=== PATIENT | male | born 1965 | race Caucasian/White ===

== ENCOUNTER → 2019-02-10 | Outpatient (CLI) | payer BC ==
[~2019-02-10] MED LIST: SULF-222 PO
--- NOTE | 2019-02-10 12:26 | Diagnostic Imaging Report ---
PROCEDURE: US right lower extremity venous. INDICATION: Right lower extremity swelling. EXAMINATION: Grayscale and color Doppler evaluation of the deep veins of the right lower extremity were performed with waveform analysis. FINDINGS: Continuous venous flow is present. No intraluminal filling defect is identified. There is normal compressibility and response to augmentation. No abnormal perivascular fluid collection is identified. IMPRESSION: No ultrasound evidence of right lower extremity deep venous thrombosis. Dictated by: Dictated on workstation # [id number]
== END ==
LOC: RAD 12:00
PROVIDERS: ATTEND Nurse Practitioner Family
DX: I83.891 Varicose veins of right lower extremity with other complications (principal)

== ENCOUNTER 2019-06-16 11:00 | Outpatient (CLI) | payer BC ==
[~2019-06-16] VITALS: Ht 200.7 cm; Wt 127.0 kg
== END 2019-06-16 13:03 | disposition home or self-care (01) ==
LOC: PREOP 11:00
PROVIDERS: ATTEND Internal Medicine
DX: Z01.818 Encounter for other preprocedural examination (principal)

== ENCOUNTER 2019-06-17 08:04 | Day surgery (SDC) | payer BC ==
--- NOTE | 2019-06-10 19:08 | HISTORY AND PHYSICAL ---
DATE OF SERVICE: COLONOSCOPY HISTORY AND PHYSICAL HISTORY OF PRESENT ILLNESS: The patient is a 54-year-old white male referred by Dr. Sveta Crandall for his first screening colonoscopy. He is deemed to be of slightly higher than average risk because he reports his father had a history of colon polyps. He has not however, aware of any family history for colon cancer. He denies any change in bowel habit. No problems with diarrhea, constipation, bright red blood per rectum, melena or weight change. He did, however, reports the onset of red swollen left second toe that was painful. He has been on cephalexin, but reports no improvement in his symptoms. He has had no night sweats, chills or fever and feels well otherwise. He reports similar problem with acute erythema, swelling and pain earlier this year. He is not sure if it was the same toe or the second toe on his right foot. It did get better after about a week's worth of antibiotic therapy. He again denied any infectious type symptoms at that time. In review of electronic medical record in January, he had right foot swelling that he underwent a venous Doppler evaluation for that was unremarkable. He reports it resolved over a week's period of time and was not associated with trauma that he recalls. PAST MEDICAL HISTORY: Noncontributory per the patient's reports and his electronic medical record. He had had a sleep study done in 2014 that was compatible with severe sleep apnea with an AHI of 39. This was noted after the patient's interview, so I did not know whether he is currently being treated with CPAP. PAST SURGICAL HISTORY: Noncontributory. FAMILY HISTORY: Father has history of colon polyps and is living at the age of 86. Mother at the age of 57 with some form of intra-abdominal malignancy. She was a heavy smoker as well as drinker. SOCIAL HISTORY: He has no past smoking history. He reports over the summer time he does drink more and has been averaging about four beers daily. 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 REVIEW OF SYSTEMS: CONSTITUTION: The patient denies night sweats, chills, fever or change in weight. GASTROINTESTINAL: As noted in the HPI. CARDIOVASCULAR: The patient reports no history of cardiovascular disease. Denies chest pain, palpitations, syncope or presyncope. Denies orthopnea or PND. Has no pedal edema, but does have an inflamed left second toe. PULMONARY: The patient denies any problems with cough, chest congestion, wheezing and asthma. MUSCULOSKELETAL: The patient has not been diagnosed previously with gout. PHYSICAL EXAMINATION: GENERAL: Reveals pleasant overweight white male in no acute distress. VITAL SIGNS: Blood pressure was 156/98. HEENT: Unremarkable. He is a Mallampati class 2 oropharyngeal configuration. NECK: Revealed no JVD, adenopathy or bruits. CHEST: Clear to auscultation. CARDIOVASCULAR: Reveals a regular rate and rhythm without murmur, S3 or S4. EXTREMITIES: Reveal no cyanosis, clubbing or edema, except there is inflammation predominantly around the 2nd DIP joint of the left foot. There is some pain to palpation. There is no evidence for paronychia. No abnormality is noted involving the MTP joint. SKIN: Skin evaluation reveals no evidence for any psoriatic plaques. ASSESSMENT AND PLAN: 1. The patient was set up for screening colonoscopy on 06/17/2019. Prep instructions with the Suprep kit were given and questions were answered. 2. Inflammatory arthritis, recurrent second left DIP joint of the foot. Considering obesity and excessive beer intake without underlying other infectious type symptoms, gout is strongly in the differential. As there has not been any improvement after a week of cephalexin. I did take the liberty of giving him a short course of prednisone 40 mg x3 days, 20 mg x3 days and off. Discussed if he develops infectious symptoms, he needs to return to see Dr. Crandall or go to urgent care if it is over a weekend. Advised that he return to see Dr. Crandall when inflammatory arthritis has resolved for uric acid level testing and strongly advised that he cut down on beer/alcohol consumption as it was also contributing to his obesity and strong risk factor for gout. I thank you for the referral of this pleasant gentleman. Job ID: [id number] DocumentID: [id number] Dictated Date: 06/09/2019 17:14:04 Geospatial Extractor Analysis Date: 06/09/2019 18:05:11 Dictated By: MAGALY WALKER MD MTDDarryl
[2019-06-17] VITALS (13 sets, daily range): BP systolic 146–167; BP diastolic 86–112
[~2019-06-17] VITALS: Ht 200.7 cm; Wt 127.0 kg
[~2019-06-17 08:04] MED LIST changes: +D5 LR IV SOLUTION 1,000 ML IV ONE
[2019-06-17] MEDS ORDERED: D5 LR IV SOLUTION 1,000 ML IV STA (08:12)
[2019-06-17] MEDS ORDERED: LIDOCAINE JELLY 2% 6 ML SYRINGE MM PRN (08:15)
[2019-06-17] MEDS ORDERED: MIDAZOLAM 2 MG/2 ML (VERSED) VIAL IVP ONE (08:15)
[2019-06-17] MEDS ORDERED: fentaNYL INJECTION 100 MCG/2 ML AMP IVP ONE (08:15)
[2019-06-17] MEDS ORDERED: MIDAZOLAM 2 MG/2 ML (VERSED) VIAL ONE ×2 (08:36)
[2019-06-17] MEDS ORDERED: fentaNYL INJECTION 100 MCG/2 ML AMP ONE (08:36)
[2019-06-17] MEDS ORDERED: LIDOCAINE JELLY 2% 6 ML SYRINGE ONE (08:37)
--- NOTE | 2019-06-17 09:00 | Pre-Op Note & Conscious Sedat ---
Pre-Operative Progress Note H&P Reviewed The H&P was reviewed, patient examined and no changes noted. Date H&P Reviewed: Jun 17, 2019 Time H&P Reviewed: 08:30 Conscious Sedation Pre-Proced ASA Score 2 For ASA 3 and 4: Consider anesthesia and medical clearance. Also, for patients with a history of failed moderate sedation consider anesthesia. Airway Lungs Heart ASA score ASA 1: a normal healthy patient ASA 2: a patient with a mild systemic disease (mid diabetes, controlled hypertension, obesity ASA 3: a patient with a severe systemic disease that limits activity (angina, COPD, prior Myocardial infarction) ASA 4: a patient with an incapacitating disease that is a constant threat to life (CHF, renal failure) ASA 5: a moribund patient not expected to survive 24 hrs. (ruptured aneurysm) ASA 6: a declared brain- patient whose organs are being harvested. For emergent operations, add the letter E after the classification Mallampati Classification Grade 2 Sedation Plan Analgesia, Amnesia, Plan communicated to team members, Discussed options with patient/fam, Discussed risks with patient/fam The patient is an appropriate candidate to undergo the planned procedure, sedation, and anesthesia. The patient immediately re-assessed prior to indication. MAGALY WALKER MD Jun 17, 2019 09:00
--- NOTE | 2019-06-17 14:51 | OPERATIVE REPORT ---
DATE OF SERVICE: 06/17/2019 COLONOSCOPY SUMMARY INDICATION FOR THE PROCEDURE: Screening colonoscopy. DESCRIPTION OF THE PROCEDURE: The patient was placed in the left lateral decubitus position. Prior to undergoing colonoscopy, digital rectal evaluation was performed. Anal sphincter tone was normal. Perianal reflex was intact. The prostate is normal in size. There is an area of the mid distal portion of the right prostatic lobe that is a little bit firmer without overt nodularity in comparison to the left side. No other abnormalities were noted on digital inspection of the prostate or distal rectal vault. The colonoscope was then inserted into the rectum and under direct visualization advanced to cecum. The cecum was identified by identification of the ileocecal valve and cecal strap. Photographic documentation was obtained. Careful inspection was made as the colonoscope was withdrawn. The patient tolerated the procedure well. FINDINGS: There was no evidence for internal or external hemorrhoids. Present in the mid rectum was a diminutive 4 mm sessile polyp that was biopsied and ablated and submitted for histopathology. The remainder of the rectum, sigmoid colon, descending colon, splenic flexure and transverse colon were unremarkable. Present in the mid ascending colon was a diminutive sessile polyp measuring about 3 x 5 mm in size. It was photographed and biopsied and ablated with no significant blood loss. The remainder of the ascending colon and cecum were unremarkable. ASSESSMENT: 1. Two diminutive polyps were removed today. As long as there are no surprises on histopathology report, we will advocate consideration for repeat surveillance colonoscopy in 5 years. The patient reports his father had a history of colon polyps, but he is not aware of any family history for colon cancer. 2. The prostate is not enlarged in size, but the mid to distal portion of the right prostatic lobe is firmer than the left without nodularity. I had advised the patient to check to make sure that he has at least had PSA screening in the last year. Considering the size of his prostate, his PSA level should be significantly less than 4 and likely under 2. If this is not the case, would advocate consideration for urologic referral. I thank you for the referral of this pleasant gentleman. Sincerely, Job ID: [id number] DocumentID: [id number] Dictated Date: 06/17/2019 09:43:41 Radio Installer Date: 06/17/2019 14:50:57 Dictated By: MD KAYLAN STEINER
== END 2019-06-17 10:10 | disposition home or self-care (01) ==
LOC: ENDO 08:04
PROVIDERS: ATTEND Internal Medicine
DX: Z12.11 Encounter for screening for malignant neoplasm of colon (principal); D12.2 Benign neoplasm of ascending colon; K62.1 Rectal polyp; F17.210 Nicotine dependence, cigarettes, uncomplicated; M06.4 Inflammatory polyarthropathy; Z79.2 Long term (current) use of antibiotics; Z80.8 Family history of malignant neoplasm of other organs or systems; Z83.71 Family history of colonic polyps
CPT/HCPCS: 88305

== ENCOUNTER 2020-06-05 20:04 | Emergency (ER) | payer BC ==
[~2020-06-05 20:04] MED LIST changes: -D5 LR IV SOLUTION 1,000 ML IV ONE
[2020-06-05 20:15] VITALS: BP 180/111
[2020-06-05] MEDS ORDERED: NS IV 1000 ML 1,000 ML IV SCH (20:30)
[2020-06-05] MEDS ORDERED: ACETAMINOPHEN 325 MG TABLET PO ONE (20:30)
[2020-06-05 21:00] LABS: BASOPHILS % (AUTO) 1 % (0-10); EOSINOPHILS # (AUTO) 0.2 10^3/uL (0.0-0.3); EOSINOPHILS % (AUTO) 5 % (0-10); HEMATOCRIT 43 % (40-54); HEMOGLOBIN 14.6 G/DL (13.3-17.7); LYMPHOCYTES # (AUTO) 0.6 X 10^3 (1.0-4.0); LYMPHOCYTES % (AUTO) 16 % (12-44); MEAN CORPUSCULAR HEMOGLOBIN 32 PG (25-34); MEAN CORPUSCULAR HGB CONC 34 G/DL (32-36); MEAN CORPUSCULAR VOLUME 95 FL (80-99); MEAN PLATELET VOLUME 10.7 FL (7.4-10.4); MONOCYTES # (AUTO) 0.6 X 10^3 (0.0-1.0); MONOCYTES % (AUTO) 14 % (0-12); NEUTROPHILS # (AUTO) 2.6 X 10^3 (1.8-7.8); NEUTROPHILS % (AUTO) 64 % (42-75); PLATELET COUNT 140 10^3/uL (130-400); RED CELL DISTRIBUTION WIDTH 13.2 % (10.0-14.5); WHITE BLOOD COUNT 4.1 10^3/uL (4.3-11.0)
--- NOTE | 2020-06-05 21:17 | Diagnostic Imaging Report ---
INDICATION: Shortness of breath and fever. Frontal chest obtained at 08:54 p.m. There is no prior study for comparison. FINDINGS: The heart and mediastinal silhouette are normal in appearance. The lungs are clear. There is mild hyperinflation compatible with COPD. There is no focal infiltrate. There is no pneumothorax or pleural fluid IMPRESSION: Mild COPD changes with no focal infiltrate or acute process otherwise. Dictated by: Dictated on workstation # [id number]
[2020-06-05 21:20] LABS: FIBRIN DEGRADATION PRODUCTS 0.54 UG/ML (0.00-0.49); INR 0.9 (0.8-1.4); PROTHROMBIN TIME PATIENT 12.5 SEC (12.2-14.7)
[2020-06-05 21:23] LABS: ALANINE AMINOTRANSFERASE 87 U/L (0-55); ALBUMIN 4.1 GM/DL (3.2-4.5); ALKALINE PHOSPHATASE 98 U/L (40-136); BILIRUBIN,TOTAL 0.4 MG/DL (0.1-1.0); BUN/CREATININE RATIO 12; CALCIUM 9.1 MG/DL (8.5-10.1); CARBON DIOXIDE 20 MMOL/L (21-32); CHLORIDE 104 MMOL/L (98-107); CREATININE SERUM 1.04 MG/DL (0.60-1.30); GFR ESTIMATED > 60; GLUCOSE 102 MG/DL (70-105); POTASSIUM 4.4 MMOL/L (3.6-5.0); SODIUM 138 MMOL/L (135-145); TOTAL PROTEIN 7.1 GM/DL (6.4-8.2)
--- NOTE | 2020-06-05 22:03 | ED Cough/URI ---
General Chief Complaint: Fever-Adult/Adol Stated Complaint: COUGH,FEVER,DIZZYNESS,RASH Nursing Triage Note: Pt ambulates to room #10 with c/o fever, chills, cough, SOA, sinus drainage, et rash. Pt reports fever began on 06/04/20. Pt reports fever or 104.1 at 1945 on this day. Pt denies CP or discomfort. Sepsis Screen: Possible Severe Sepsis Risk Source: patient Exam Limitations: no limitations History of Present Illness Date Seen by Provider: Jun 05, 2020 Time Seen by Provider: 20:31 Initial Comments 55-year-old female who presents to the emergency room with complaints of fever, chills, cough, shortness of air, sinus drainage and a rash across to his chest that began yesterday. He reports fevers of 104 this evening and reports taking 800 of ibuprofen. He denies any chest pain. He reports that his shortness of breath is just mild. He reports that he did start going to a gym last week. Other than that he has been social distancing. Associated Symptoms: fever/chills, shortness of breath Allergies and Home Medications Allergies Coded Allergies: No Known Drug Allergies (Unverified , 04/10/15) Home Medications No Active Prescriptions or Reported Meds Patient Home Medication List Home Medication List Reviewed: Yes Review of Systems Review of Systems Constitutional: see HPI, chills, fever, malaise EENTM: see HPI, throat pain Respiratory: see HPI, short of breath All Other Systems Reviewed Negative Unless Noted: Yes Past Zuhetci-Ofzrro-Kayphz Hx Past Med/Social Hx: Reviewed Nursing Past Med/Soc Hx Patient Social History Recent Foreign Travel: No Contact w/Someone Who Travel: No Recent Infectious Disease Expo: No Recent Hopitalizations: No Immunizations Up To Date Tetanus Booster (TDap): Unknown Seasonal Allergies Seasonal Allergies: No Past Medical History Surgeries: Yes (birthmark removed) Respiratory: No Currently Using CPAP: No Currently Using BIPAP: No Cardiac: No Neurological: No Reproductive Disorders: No Sexually Transmitted Disease: No Genitourinary: No Gastrointestinal: No Musculoskeletal: No (possible gout) Endocrine: No HEENT: No Loss of Vision: Denies Hearing Impairment: Denies Cancer: No Psychosocial: No Integumentary: No Blood Disorders: No Family Medical History Reviewed Nursing Family Hx Physical Exam Vital Signs - First Documented 06/05/20 20:15 Temp 38.1 Pulse 110 Resp 22 B/P (MAP) 180/111 (134) Pulse Ox 96 O2 Delivery Room Air Capillary Refill : Less Than 3 Seconds Height: 6'7.00" Weight: 280lbs. 0.0oz. 127.417625eu; 31.5 BMI Method:Stated General Appearance: WD/WN, no apparent distress HEENT: PERRL/EOMI, normal ENT inspection, TMs normal, pharynx normal Respiratory: chest non-tender, lungs clear, normal breath sounds, no respiratory distress, no accessory muscle use, respiratory distress Cardiovascular: normal peripheral pulses, regular rate, rhythm, no edema, no gallop, no JVD, no murmur Gastrointestinal: normal bowel sounds, non tender, soft, no organomegaly, no pulsatile mass Skin: normal color, warm/dry, rash (rash on the right chest wall, raised, cat thema) Focused Exam Lactate Level 06/05/20 20:25: Lactic Acid Level 1.72 Lactic Acid Level Laboratory Tests Test 06/05/20 20:25 Lactic Acid Level 1.72 MMOL/L (0.50-2.00) Progress/Results/Core Measures Suspected Sepsis Recent Fever Within 48 Hours: Yes Infection Criteria Present: Suspected New Infection New/Unexplained Altered Menta: No Sepsis Screen: Possible Severe Sepsis Risk SIRS Temperature: Pulse: 110 Respiratory Rate: 22 Laboratory Tests 06/05/20 20:25: White Blood Count 4.1L Blood Pressure 180 /111 Mean: 134 06/05/20 20:25: Lactic Acid Level 1.72 Laboratory Tests 06/05/20 20:25: Creatinine 1.04, INR Comment 0.9, Platelet Count 140, Total Bilirubin 0.4 Results/Orders Lab Results Laboratory Tests Test 06/05/20 20:00 06/05/20 20:25 06/05/20 22:02 Range/Units Coronavirus (COVID-19)(PCR) NOT DETECTED Not Detecte White Blood Count 4.1 L 4.3-11.0 10^3/uL Red Blood Count 4.53 4.35-5.85 10^6/uL Hemoglobin 14.6 13.3-17.7 G/DL Hematocrit 43 40-54 % Mean Corpuscular Volume 95 80-99 FL Mean Corpuscular Hemoglobin 32 25-34 PG Mean Corpuscular Hemoglobin Concent 34 32-36 G/DL Red Cell Distribution Width 13.2 10.0-14.5 % Platelet Count 140 130-400 10^3/uL Mean Platelet Volume 10.7 H 7.4-10.4 FL Neutrophils (%) (Auto) 64 42-75 % Lymphocytes (%) (Auto) 16 12-44 % Monocytes (%) (Auto) 14 H 0-12 % Eosinophils (%) (Auto) 5 0-10 % Basophils (%) (Auto) 1 0-10 % Neutrophils # (Auto) 2.6 1.8-7.8 X 10^3 Lymphocytes # (Auto) 0.6 L 1.0-4.0 X 10^3 Monocytes # (Auto) 0.6 0.0-1.0 X 10^3 Eosinophils # (Auto) 0.2 0.0-0.3 10^3/uL Basophils # (Auto) 0.0 0.0-0.1 10^3/uL Prothrombin Time 12.5 12.2-14.7 SEC INR Comment 0.9 0.8-1.4 Activated Partial Thromboplast Time 24 24-35 SEC Fibrinogen 506 H 221-496 MG/DL D-Dimer 0.54 H 0.00-0.49 UG/ML Sodium Level 138 135-145 MMOL/L Potassium Level 4.4 3.6-5.0 MMOL/L Chloride Level 104 98-107 MMOL/L Carbon Dioxide Level 20 L 21-32 MMOL/L Anion Gap 14 5-14 MMOL/L Blood Urea Nitrogen 12 7-18 MG/DL Creatinine 1.04 0.60-1.30 MG/DL Estimat Glomerular Filtration Rate > 60 BUN/Creatinine Ratio 12 Glucose Level 102 70-105 MG/DL Lactic Acid Level 1.72 0.50-2.00 MMOL/L Calcium Level 9.1 8.5-10.1 MG/DL Corrected Calcium 9.0 8.5-10.1 MG/DL Ferritin 567.4 H 32.0-356.0 ng/mL Total Bilirubin 0.4 0.1-1.0 MG/DL Aspartate Amino Transf (AST/SGOT) 42 H 5-34 U/L Alanine Aminotransferase (ALT/SGPT) 87 H 0-55 U/L Alkaline Phosphatase 98 40-136 U/L Lactate Dehydrogenase 289 H 125-220 U/L Troponin I < 0.028 <0.028 NG/ML C-Reactive Protein High Sensitivity 2.36 H 0.00-0.50 MG/DL Total Protein 7.1 6.4-8.2 GM/DL Albumin 4.1 3.2-4.5 GM/DL Group A Streptococcus Screen NEGATIVE NEGATIVE Micro Results Microbiology 06/05/20 Throat Culture - Final, Complete No Beta Strep isolated 06/05/20 Blood Culture - Preliminary, Resulted No growth 06/05/20 Blood Culture - Preliminary, Resulted No growth My Orders Orders - LILO LE Vital Signs: Every 4 Hours (Or (06/05/20 20:29) Monitor-Rhythm Ecg Trace Only (06/05/20 20:29) Cbc With Automated Diff (06/05/20:) Comprehensive Metabolic Panel (06/05/20 20:) Ferritin (06/05/20 20:29) LDH (06/05/20 20:29) Hs C Reactive Protein (06/05/20 20:29) Troponin I (06/05/20 20:29) Lactic Acid Analyzer (06/05/20 20:29) Protime With Inr (06/05/20 20:29) Partial Thromboplastin Time (06/05/20 20:29) Fibrin Degradation Products (06/05/20 20:29) Fibrinogen (06/05/20 20:) Ekg Tracing (06/05/20 20:29) Chest 1 View, Ap/Pa Only (06/05/20 20:29) Acetaminophen Tablet/Caplet (Tylenol T (06/05/20 20:30) Ns Iv 1000 Ml (Sodium Chloride 0.9%) (06/05/20 20:30) Blood Culture (06/05/20 20:29) Rapid Strep A Screen (06/05/20 21:10) Ct Angio Chest W (06/05/20 21:30) Coronavirus Sars-Cov-2 So 2018 (06/05/20 20:00) Medications Given in ED Vital Signs/I&O 06/05/20 06/05/20 20:15 20:36 Temp 38.1 38.1 Pulse 110 Resp 22 B/P (MAP) 180/111 (134) Pulse Ox 96 O2 Delivery Room Air Capillary Refill : Less Than 3 Seconds Blood Pressure Mean: 134 Progress Note : Time: 23:44 Progress Note I have seen and evaluated the patient. I have informed him of his laboratory and imaging studies. With symptoms, recent gym activity, and presentation I believe that he is high risk for covid being positive. I did discuss the findings on his ct and high concern for malignancies and stressed the importance of close follow up. He agrees with plan of care, plans for discharge, return precautions were given. Departure Impression Primary Impression: Viral respiratory illness Additional Impressions: SARS-associated coronavirus exposure Liver lesion Disposition: HOME, SELF-CARE Condition: Stable/Unchanged Departure-Patient Inst. Decision time for Depature: 23:44 Referrals: FABBY CRANDALL MD (PCP/Family) Primary Care Physician Patient Instructions: Coronavirus Disease 2019 (COVID-19) Overview, VIRAL RESP ILLNESS-ADULT Add. Discharge Instructions: Use the inhaler as needed. Tylenol for fever and body aches. Isolate until you have your COVID results. I recommend taking 81 mg of aspirin daily until you get your COVID results back. Follow-up with your primary care after isolation. Your CT results did show liver lesions that need to be followed up and discussed this with Dr. Crandall. Return back to the emergency room for worsening symptoms, shortness of breath, or any other concerns as needed. All discharge instructions reviewed with patient and/or family. Voiced understanding. Scripts No Active Prescriptions or Reported Meds Copy Copies To 1: FABBY CRANDALL MD, TRAVIS Jun 05, 2020 22:03
[2020-06-05] MEDS ORDERED: NS 100 ML (IVPB) BAG IV ONE (22:30)
[2020-06-05] MEDS ORDERED: HOLD METFORMIN - RECEIVED CONTRAST 20 ML VIAL IV SCH (22:30)
[2020-06-05] MEDS ORDERED: IOHEXOL 350 MG/ML 100 ML (OMNIPAQUE 350) VIAL IV ONE (22:30)
--- NOTE | 2020-06-05 23:10 | NUR ---
IV to L hand pulled out while in radiology. Provider notified.
--- NOTE | 2020-06-06 06:38 | Diagnostic Imaging Report ---
PROCEDURE: CT angiography of the chest with contrast. TECHNIQUE: Multiple contiguous axial images were obtained through the chest after uneventful bolus administration of intravenous contrast. 3D reconstructed CTA MIP acquisitions were also performed. Auto Exposure Controls were utilized during the CT exam to meet ALARA standards for radiation dose reduction. INDICATION: Shortness of breath. Sinus drainage. Febrile. Lungs are well-aerated. Mild increased interstitial markings are noted bilaterally. No consolidated infiltrates or masses demonstrated in the lungs. No pleural effusions or pericardial effusions. Aorta appears normal. Pulmonary arteries show no filling defects to indicate pulmonary emboli. No mediastinal or hilar adenopathy of pathologic size. There is noted hepatomegaly with a very mottled appearing infiltrated liver likely representing metastatic lesion. No blastic or lytic bony changes. IMPRESSION: 1. No evidence of pulmonary emboli. 2. Mild prominence interstitial markings of the lungs which may be chronic or acute. 3. Abnormal liver which is enlarged with multiple lesions scattered throughout most likely representing metastatic disease. Further workup indicated. These findings are concordant with the preliminary report. Dictated by: Dictated on workstation # [id number]
== END 2020-06-06 01:38 | disposition home or self-care (01) ==
LOC: EDUNIT# 20:04 → ER 20:05
DX: J98.8 Other specified respiratory disorders (principal); K76.9 Liver disease, unspecified; Z20.828 Contact with and (suspected) exposure to other viral communicable diseases
CPT/HCPCS: 71045; 71275; 80053; 82728; 83605; 83615; 84484; 85025; 85379; 85384; 85610; 85730; 86141; 87040; 87430; 93005; 93041; 99284; U0002; 36415; 87635; 96360

== ENCOUNTER → 2020-06-08 | Outpatient (CLI) | payer BC ==
[2020-06-08] VITALS (15 sets, daily range): BP systolic 110–143; BP diastolic 82–108
[~2020-06-08] VITALS: Ht 77 cm; Wt 124.7 kg
[~2020-06-08] MED LIST changes: +ALLO100T; +DOXY100T2; +ESCI10TA55; +HYDR-700; +HYDROcodone/APAP 5 MG/325 MG (LORTAB) TAB PO PRN; +LIDOCAINE 1% INJ 20 ML 20 ML VIAL INJ ONE; +LIDOCAINE 1% INJ 20 ML 20 ML VIAL ONE; +MIDAZOLAM 2 MG/2 ML (VERSED) VIAL IVP ONE; +MIDAZOLAM 2 MG/2 ML (VERSED) VIAL ONE; +NS IV 1000 ML 1,000 ML IV STA; +NS IV 1000 ML 1,000 ML ONE; +PRD20T PO; +fentaNYL INJECTION 100 MCG/2 ML AMP IVP ONE; +fentaNYL INJECTION 100 MCG/2 ML AMP ONE
[2020-06-08 08:33] LABS: BASOPHILS % (AUTO) 0 % (0-10); EOSINOPHILS # (AUTO) 0.3 10^3/uL (0.0-0.3); EOSINOPHILS % (AUTO) 5 % (0-10); HEMATOCRIT 45 % (40-54); HEMOGLOBIN 15.4 G/DL (13.3-17.7); LYMPHOCYTES # (AUTO) 0.7 X 10^3 (1.0-4.0); LYMPHOCYTES % (AUTO) 13 % (12-44); MEAN CORPUSCULAR HEMOGLOBIN 32 PG (25-34); MEAN CORPUSCULAR HGB CONC 34 G/DL (32-36); MEAN CORPUSCULAR VOLUME 96 FL (80-99); MEAN PLATELET VOLUME 10.8 FL (7.4-10.4); MONOCYTES # (AUTO) 0.5 X 10^3 (0.0-1.0); MONOCYTES % (AUTO) 9 % (0-12); NEUTROPHILS % (AUTO) 73 % (42-75); PLATELET COUNT 135 10^3/uL (130-400); RED CELL DISTRIBUTION WIDTH 13.9 % (10.0-14.5); WHITE BLOOD COUNT 5.5 10^3/uL (4.3-11.0)
[2020-06-08 08:53] LABS: PROTHROMBIN TIME PATIENT 13.6 SEC (12.2-14.7)
[2020-06-08 09:18] LABS: BAND NEUTROPHILS 12 %; BASOPHILS % (MANUAL) 1 %; EOSINOPHILS % (MANUAL) 3 %; LYMPHOCYTES % (MANUAL) 13 %; MONOCYTES % (MANUAL) 8 %; NEUTROPHILS % (MANUAL) 63 %; RBC MORPH NORMAL
--- NOTE | 2020-06-08 09:55 | NUR ---
patient to recovery area. alert and oriented x2. patient states no pain at this time. dressing dry and intact. patient resting with eyes closed. will continue to monitor.
--- NOTE | 2020-06-08 10:36 | Pre-Op Note & Conscious Sedat ---
Pre-Operative Progress Note H&P Reviewed The H&P was reviewed, patient examined and no changes noted. Date H&P Reviewed: Jun 08, 2020 Time H&P Reviewed: 08:00 Pre-Op Diagnosis: Liver mass Conscious Sedation Pre-Proced Time 08:00 ASA Score 2 For ASA 3 and 4: Consider anesthesia and medical clearance. Also, for patients with a history of failed moderate sedation consider anesthesia. Airway Lungs Heart ASA score ASA 1: a normal healthy patient ASA 2: a patient with a mild systemic disease (mid diabetes, controlled hypertension, obesity ASA 3: a patient with a severe systemic disease that limits activity (angina, COPD, prior Myocardial infarction) ASA 4: a patient with an incapacitating disease that is a constant threat to life (CHF, renal failure) ASA 5: a moribund patient not expected to survive 24 hrs. (ruptured aneurysm) ASA 6: a declared brain- patient whose organs are being harvested. For emergent operations, add the letter E after the classification Mallampati Classification Grade 2 Sedation Plan Analgesia, Amnesia, Plan communicated to team members, Discussed options with patient/fam, Discussed risks with patient/fam The patient is an appropriate candidate to undergo the planned procedure, sedation, and anesthesia. The patient immediately re-assessed prior to indication. AVINASH LOPEZ MD Jun 08, 2020 10:36
--- NOTE | 2020-06-08 11:01 | Diagnostic Imaging Report ---
INDICATION: Liver masses. PROCEDURE: CT-guided liver biopsy TECHNIQUE: All CT scans use one or more of the following dose optimizing techniques: automated exposure control, MA and/or KvP adjustment based on patient size and exam type or iterative reconstruction. DESCRIPTION OF PROCEDURE: The patient was brought to the CT suite and placed on table in the supine position. Axial imaging through the abdomen was performed to evaluate appropriate entry site. The procedure was performed utilizing conscious sedation with radiology nursing and constant patient monitoring. The patient was administered a total of 2 mg of Versed intravenously and 100 mcg of fentanyl intravenously. Total procedure time was 10 minutes. Right abdomen was prepped and draped in the usual sterile fashion. A small amount of 1% lidocaine was utilized for local anesthesia. An 18-gauge coaxial Temno biopsy needle was advanced into the right lobe of the liver. The tip was placed within low-density lesion in the inferior right lobe. A total of 4 core biopsies were obtained. A blood patch was injected during needle removal. Hemostasis was obtained using manual compression. The patient tolerated the procedure well and left the department in stable condition. IMPRESSION: Successful CT-guided liver biopsy utilizing, conscious sedation. Pathology results are currently pending. Dictated by: Dictated on workstation # [id number]
== END ==
LOC: SDC 08:14
PROVIDERS: ATTEND Family Medicine
DX: K75.89 Other specified inflammatory liver diseases (principal); K75.81 Nonalcoholic steatohepatitis (NASH); F41.9 Anxiety disorder, unspecified; D72.1 Eosinophilia; Z79.899 Other long term (current) drug therapy
CPT/HCPCS: 36415; 77012; 85007; 85027; 85610; 85730; 99156

== ENCOUNTER 2020-06-10 16:10 | Emergency (ER) | payer BC ==
[~2020-06-10] VITALS: Ht 199 cm; Wt 125.0 kg
[~2020-06-10 16:10] MED LIST changes: -ALLO100T; -DOXY100T2; -ESCI10TA55; -HYDR-700; -HYDROcodone/APAP 5 MG/325 MG (LORTAB) TAB PO PRN; -LIDOCAINE 1% INJ 20 ML 20 ML VIAL INJ ONE; -LIDOCAINE 1% INJ 20 ML 20 ML VIAL ONE; -MIDAZOLAM 2 MG/2 ML (VERSED) VIAL IVP ONE; -MIDAZOLAM 2 MG/2 ML (VERSED) VIAL ONE; -NS IV 1000 ML 1,000 ML IV STA; -NS IV 1000 ML 1,000 ML ONE; -PRD20T PO; -fentaNYL INJECTION 100 MCG/2 ML AMP IVP ONE; -fentaNYL INJECTION 100 MCG/2 ML AMP ONE
--- OUTSIDE RECORDS SUMMARY | 2020-06-10 16:18 | XMS REPORT | CCD ---
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 Name Role Phone PP Unavailable CCM Unavailable Summary Purpose Interface Exchange Insurance Providers Payer name Policy type / Coverage type Covered green party ID Effective Begin Date Effective End Date Blue Cross Blue Shield [facility] Donovan e Cross/Blue Shield [id number] Unknown Unk nown Family history Father Diagnosis Age At Onset Hypertension Unknown Mother Diagnosis Age At Onset alcohol dependence Unknown Skin cancer Unknown Cancer Unknown Depression Unknown Social History Social History Element Codes Description Effective Dates Marital status Unknown M daniela Coello 05/03/2018 Number of children Unknown 2 05/11/[address]: [id number] Never smoker 05/11/2015 Alcohol history Unknown occasionally drinks alcohol 05/11/2015 Allergies, Adverse Reactions, Alerts Substance Reaction Codes Entered Date Inactivated Date Status * NO KNOWN DRUG SANTANA RGIES Unknown 08/29/2015 No Inactive Date Active Past Medical History Illness Codes Condition Status Onset Date Resolved Date Cellulitis of left toe ICD-9: 681.10 ICD-10: L03.032 Active 06/03/2019 Unknown Pain in left toe(s) ICD- 9: 729.5 ICD-10: M79.675 Active 06/15/2019 Unknown Acute recurrent maxi llary sinusitis ICD-9: 461.0 ICD-10: J01.01 Active 12/29/2018 Unknown Generalized anxiety disorder ICD-9: 300.00 ICD-10: F41.1 Active 05/10/2015 Unknown Cough ICD-9: 786.2 ICD-10: R05 Active 11/28/2016 Unknown Effusion, right foot ICD-9: 719.07 ICD-10: M25.474 Active 02/10/2019 Unknown Other allergic rhinitis ICD-9: 477.8 ICD-10: J30.89 Active 01/12/2019 Unknown Phlebitis and thromb ophlebitis of superficial vessels of right lower extremity ICD-9: 451.0 ICD-10: I80.01 Active 02/10/2019 Unknown Acute bronchitis due to other specified organisms ICD-9: 466.0 ICD-10: J20.8 Active 11/17/2016 Unknown Acute laryngopharyng itis ICD-9: 465.0 ICD-10: J06.0 Active 11/17/2016 Unknown Encounter for genera l adult medical examination without abnormal findings ICD-9: V70.0 ICD-10: Z00.00 Active 05/03/2018 Unknown Adjustment insomnia ICD- 9: 307.41 ICD-10: F51.02 Active 03/26/2017 Unknown Cellulitis of left toe ICD-9: 681.11 ICD-10: L03.032 Active 03/26/2017 Unknown Dermatitis, unspecified ICD-9: 692.9 ICD-10: L30.9 Active 03/26/2017 Unknown Anxiety ICD-9: 300.00 Active 05/10/2015 Unknow n Well adult exam ICD-9: V70.0 Active 05/10/2015 Unknown Problems Condition Codes Effectiv e Dates Condition Status Cellulitis of left toe ICD-9: 681.10 ICD-10: L03.032 06/03/2019 Active Pain in left toe(s) ICD- 9: 729.5 ICD-10: M79.675 06/15/2019 Active Acute recurrent maxi llary sinusitis ICD-9: 461.0 ICD-10: J01.01 12/29/2018 Active Generalized anxiety disorder ICD-9: 300.00 ICD-10: F41.1 05/10/2015 Active Cough ICD-9: 786.2 ICD-10: R05 11/28/2016 Active Effusion, right foot ICD-9: 719.07 ICD-10: M25.474 02/10/2019 Active Other allergic rhinitis ICD-9: 477.8 ICD-10: J30.89 01/12/2019 Active Phlebitis and thromb ophlebitis of superficial vessels of right lower extremity ICD-9: 451.0 ICD-10: I80.01 02/10/2019 Active Acute bronchitis due to other specified organisms ICD-9: 466.0 ICD-10: J20.8 11/17/2016 Active Acute laryngopharyng itis ICD-9: 465.0 ICD-10: J06.0 11/17/2016 Active Encounter for genera l adult medical examination without abnormal findings ICD-9: V70.0 ICD-10: Z00.00 05/03/2018 Active Adjustment insomnia ICD- 9: 307.41 ICD-10: F51.02 03/26/2017 Active Cellulitis of left toe ICD-9: 681.11 ICD-10: L03.032 03/26/2017 Active Dermatitis, unspecified ICD-9: 692.9 ICD-10: L30.9 03/26/2017 Active Anxiety ICD-9: 300.00 05/10/2015 Active Well adult exam ICD-9: V70.0 05/10/2015 Active Medications Medication Codes Instruc tions Start Date Stop Date Sta tus Fill Instructions allopurinol 100 mg t ablet RxNorm: 323088 1 Tablet(s) PO daily 06/17/2019 10/14/2019 Active allopurinol 100 mg t ablet RxNorm: 839623 1 Tablet(s) PO daily 06/17/2019 06/16/2019 Inactive doxycycline hyclate 100 mg capsule RxNorm: 3710866 1 Capsule(s) PO BID 06/15/2019 06/24/2019 Ac tive Keflex 500 mg capsule RxNorm: 518342 1 Capsule(s) PO TID 06/03/2019 06/09/2019 Inactive Lexapro 10 mg tablet RxNorm: 488328 1 Tablet(s) PO QHS 03/22/2019 03/15/2020 Active Keflex 500 mg capsule RxNorm: 481685 1 Capsule(s) PO TID 02/10/2019 02/19/2019 Inactive Kenalog 40 mg/mL luis pension for injection RxNorm: 6233437 Milliliter(s) Inj 01/12/2019 01/12/2019 In active Levaquin 500 mg tablet RxNorm: 223323 1 Tablet(s) PO daily 01/12/2019 01/18/2019 Inactive prednisone 10 mg tablet RxNorm: 842877 Tablet(s) PO 01/12/2019 03/21/2019 Inactive 60mg x 2 days, then 50mg x 2 days, then 40mg x 2 days, then 30mg x 2 days, then 20mg x 2 days, then 10mg x 2 days, then 5mg every other day x 2 doses. Singulair 10 mg tablet RxNorm: 588296 1 Tablet(s) PO QHS 01/12/2019 02/10/2019 Inactive ceftriaxone 500 mg s olution for injection RxNorm: 2018278 Inj 01/12/2019 01/12/2019 Inactive Sonia-D 12 Hour 60 mg-120 mg tablet,extended release RxNorm: 307115 1 Tablet(s) PO daily 12/29/2018 01/27/2019 Inactive Lexapro 10 mg tablet RxNorm: 710392 1.5 Tablet(s) PO QHS 12/29/2018 03/21/2019 Inactive Bactrim DS 800 mg-16 0 mg tablet RxNorm: 704559 1 Tablet(s) PO BID 12/29/2018 01/07/2019 Inactive Symbicort 160 mcg-4. 5 mcg/actuation HFA aerosol inhaler RxNorm: 6945982 2 Puff(s) INH BID 12/28/2018 No Stop Date Active Xanax 0.25 mg tablet RxNorm: 820462 1 Tablet(s) PO TID as needed anxiety 11/25/2018 01/23/2019 In active Lexapro 10 mg tablet RxNorm: 714924 1.5 Tablet(s) PO QHS 11/23/2018 12/28/2018 Inactive propranolol 40 mg ta blet RxNorm: 274324 Tablet(s) TAKE 1 TABL ET BY MOUTH PRIOR TO EVENT NEEDED 09/20/2018 12/08/2018 Inactive Lexapro 10 mg tablet RxNorm: 048958 1 Tablet(s) PO QHS 08/30/2018 11/22/2018 Inactive Lexapro 10 mg tablet RxNorm: 958569 1 Tablet(s) PO QHS 05/03/2018 08/29/2018 Inactive cyclobenzaprine 5 mg tablet RxNorm: 641246 1 Tablet(s) PO TID as needed 01/05/2018 01/09/2018 In active cyclobenzaprine 5 mg tablet RxNorm: 624691 1 Tablet(s) PO TID as needed 01/05/2018 01/04/2018 In active propranolol 40 mg ta blet RxNorm: 733106 TAKE 1 TABLET BY MOUT H PRIOR TO EVENT NEEDED 07/24/2017 10/11/2017 Inactive Generic For:INDERAL 40 MG TABLET 2016 9:51:34 AM Prozac 10 mg capsule RxNorm: 327289 1 Capsule(s) PO daily may increase after a few weeks if needed 04/09/2017 04/08/2017 Inactive Pt to call if he wants dose increased Prozac 10 mg capsule RxNorm: 368315 1 Capsule(s) PO daily may increase after a few weeks if needed 04/09/2017 05/02/2018 Inactive Pt to call if he wants dose increased Ambien 10 mg tablet RxNorm: 485407 1 Tablet(s) PO HS PRN 03/26/2017 05/02/2018 Inactive betamethasone johnny te 0.1 % topical cream RxNorm: 750053 1 Application TOP BID 03/26/2017 04/08/2017 In active Keflex 500 mg capsule RxNorm: 236912 1 Capsule(s) PO TID 03/26/2017 04/01/2017 Inactive Klonopin 0.5 mg tablet RxNorm: 270185 Tablet(s) TAKE 1 TABLET BY MOUTH EVERY 8 HOURS NEEDED 01/28/2017 06/02/2019 Inactive prednisone 10 mg tablet RxNorm: 175900 Tablet(s) PO UD 11/18/2016 05/02/2018 Inactive 6,5,4,3,2,1 Zithromax Z-Kevin 250 mg tablet RxNorm: 392011 1 Tablet(s) PO UD 11/18/2016 01/27/2017 Inactive 1 zpack Klonopin 0.5 mg tablet RxNorm: 669662 Tablet(s) TAKE 1 TABLET BY MOUTH EVERY 8 HOURS NEEDED 07/09/2016 08/05/2016 Inactive Generic For:KLONOPIN 0.5 MG TABLET N O T I C E PRESCRIPTION PREVIOUSLY AUTHORIZED BY DOCTOR:JULES DELANEY [phone] mirtazapine 7.5 mg t ablet RxNorm: 588234 1 Tablet(s) PO QHS 07/04/2016 04/08/2017 Inactive Belsomra 10 mg tablet RxNorm: 9044620 1 Tablet(s) PO QHS 05/30/2016 05/29/2016 Inactive Belsomra 10 mg tablet RxNorm: 5505484 1 Tablet(s) PO QHS as needed 05/30/2016 03/25/2017 In active propranolol 40 mg ta blet RxNorm: 248344 Tablet(s) 1 - 1.5 Tab let(s) PO prior to event as needed 05/06/2016 07/23/2017 Inactive mirtazapine 15 mg ta blet RxNorm: 210930 1 Tablet(s) PO QHS 04/30/2016 05/29/2016 Inactive amitriptyline 25 mg tablet RxNorm: 009743 1 Tablet(s) PO QPM 04/21/2016 04/29/2016 Inactive propranolol 40 mg ta blet RxNorm: 132446 1 Tablet(s) PO prior to event as needed 04/10/2016 05/05/2016 In active Klonopin 0.5 mg tablet RxNorm: 245062 Tablet(s) TAKE 1 TABLET BY MOUTH EVERY 8 HOURS NEEDED 02/29/2016 03/18/2016 Inactive Generic For:KLONOPIN 0.5 MG TABLET N O T I C E PRESCRIPTION PREVIOUSLY AUTHORIZED BY DOCTOR:JULES DELANEY Sonia-D 24 Hour 18 0 mg-240 mg tablet,extended release RxNorm: 764534 1 Tablet(s) PO daily 01/21/2016 01/20/2016 Inactive Sonia-D 24 Hour 18 0 mg-240 mg tablet,extended release RxNorm: 247206 1 Tablet(s) PO daily 01/21/2016 12/28/2018 Inactive propranolol 40 mg ta blet RxNorm: 682864 1 Tablet(s) PO prior to event as needed 11/20/2015 04/09/2016 In active Zithromax Z-Kevin 250 mg tablet RxNorm: 884362 1 Tablet(s) PO UD 10/19/2015 05/05/2016 Inactive 1 zpack Klonopin 0.5 mg tablet RxNorm: 626795 Tablet(s) TAKE 1 TABLET BY MOUTH EVERY 8 HOURS NEEDED 07/17/2015 08/04/2015 Inactive Generic For:KLONOPIN 0.5 MG TABLET N O T I C E PRESCRIPTION PREVIOUSLY AUTHORIZED BY DOCTOR:JULES DELANEY Klonopin 0.5 mg tablet RxNorm: 665977 Tablet(s) TAKE 1 TABLET BY MOUTH EVERY 8 HOURS NEEDED 07/17/2015 07/16/2015 Inactive Generic For:KLONOPIN 0.5 MG TABLET N O T I C E PRESCRIPTION PREVIOUSLY AUTHORIZED BY DOCTOR:JULES DELANEY [phone] Klonopin 0.5 mg tablet RxNorm: 713901 TAKE 1 TABLET BY MOUTH EVERY 8 HOURS NEEDED 07/16/2015 07/16/2015 Inactive Generic For:KLONOPIN 0.5 MG TABLET N O T I C E PRESCRIPTION PREVIOUSLY AUTHORIZED BY DOCTOR:JULES DELANEY Lexapro 10 mg tablet RxNorm: 965042 1 Tablet(s) PO daily 05/11/2015 08/28/2015 Inactive propranolol 40 mg ta blet RxNorm: 288544 1 Tablet(s) PO prior to john n No Start Date 11/19/2015 Inactive Zithromax Z-Kevin 250 mg tablet RxNorm: 654780 1 Tablet(s) PO UD No Start Date 10/18/2015 Inactive 1 zpack Klonopin 0.5 mg tablet RxNorm: 291469 Tablet(s) PO as needed No Start Date 07/17/2015 Inactive Symbicort 160 mcg-4. 5 mcg/actuation HFA aerosol inhaler RxNorm: 1759164 2 Puff(s) INH BID No Start Date 12/27/2018 Inactive Medication Administered Medication Codes Instruc tions Start Date Status Kenalog 40 mg/mL suspension for injection RxNorm: 2429226 Milliliter 01/12/2019 No longer Active ceftriaxone 500 mg solution for injection RxNorm: 7692508 01/12/2019 No longer A ctive Immunizations Vaccine Codes Date Status Tetanus, Diptheria, Pertussis CVX: 04/02/2015 completed Tetanus/Diptheria CVX: 04/02/2015 completed Assessments Condition Codes Effectiv e Dates Pain in left toe(s) ICD-10: M79.675 ICD-9: 729.5 06/15/2019 Cellulitis of left toe ICD-10: L03.0 32 ICD-9: 681.10 06/15/2019 Acute recurrent maxillary sinusitis ICD-10: J01.01 ICD-9: 461.0 03/22/2019 Generalized anxiety disorder ICD-10: F41.1 ICD-9: 300.00 03/22/2019 Other allergic rhinitis ICD-10: J30. 89 ICD-9: 477.8 02/10/2019 Phlebitis and thrombophlebitis of superf icial vessels of right lower extremity ICD-10: I80.01 ICD-9: 451.0 02/10/2019 Cough ICD-10: R05 ICD-9: 786.2 02/10/2019 Effusion, right foot ICD-10: M25.474 ICD-9: 719.07 02/10/2019 Acute laryngopharyngitis ICD-10: J06 .0 ICD-9: 465.0 01/12/2019 Acute bronchitis due to other specified organisms ICD-10: J20.8 ICD-9: 466.0 01/12/2019 Encounter for general adult medical exam ination without abnormal findings ICD-10: Z00.00 ICD-9: V70.0 05/03/2018 Cellulitis of left toe ICD-10: L03.0 32 ICD-9: 681.11 03/26/2017 Dermatitis, unspecified ICD-10: L30. 9 ICD-9: 692.9 03/26/2017 Adjustment insomnia ICD-10: F51.02 ICD-9: 307.41 03/26/2017 Anxiety ICD-9: 300.00 Well adult exam ICD-9: V70.0 05/11/2015 Reason For Visit Reason For Visit Effective Dates Notes foot pain 06/15/2019 foot pain 06/03/2019 anxiety 03/22/2019 cough 02/10/2019 cough 01/12/2019 cough 12/29/2018 anxiety 09/20/2018 anxiety 06/09/2018 well man exam (40-65 years) 05/03/2018 foot pain 03/26/2017 chest congestion 11/28/2016 cough 11/18/2016 anxiety 05/06/2016 anxiety 04/21/2016 well man exam (40-65 years) 05/11/2015 Results No Results data Review of Systems System Result Effective Dates Dermatologic erythema Constitutional No chills 06/15/2019 Constitutional No diaphoresis 06/15/2019 Constitutional No fever 06/15/2019 Musculoskeletal joint complaint 06/15/2019 Neurologic No alteration of consciousness 06/15/2019 Neurologic No mental status change 06/15/2019 Constitutional No recent illness 06/03/2019 Constitutional No anorexia 06/03/2019 Constitutional No night sweats 06/03/2019 Constitutional No chills 06/03/2019 Constitutional No diaphoresis 06/03/2019 Constitutional No fatigue 06/03/2019 Constitutional No fever 06/03/2019 Constitutional No insomnia 06/03/2019 Constitutional No malaise 06/03/2019 Constitutional No weight loss 06/03/2019 Constitutional No weight gain 06/03/2019 Dermatologic erythema Constitutional recent illness 03/22/2019 Constitutional No anorexia 03/22/2019 Constitutional No night sweats 03/22/2019 Constitutional No chills 03/22/2019 Constitutional No diaphoresis 03/22/2019 Constitutional No fatigue 03/22/2019 Constitutional No fever 03/22/2019 Constitutional insomnia 03/22/2019 Constitutional No malaise 03/22/2019 Eyes No eye discharge Eyes No eye erythema Ears/Nose/Throat/Neck No dizziness 03/22/2019 Ears/Nose/Throat/Neck No headache 03/22/2019 Cardiovascular No chest pain/pressure 03/22/2019 Cardiovascular No dyspnea 03/22/2019 Cardiovascular No edema 03/22/2019 Respiratory cough 2018 Gastrointestinal No abdominal pain 03/22/2019 Gastrointestinal No constipation 03/22/2019 Genitourinary/Nephrology No dysuria 03/22/2019 Musculoskeletal No joint complaint 03/22/2019 Dermatologic No rash Dermatologic No sores Neurologic No alteration of consciousness 03/22/2019 Psychiatric anxiety 03/03 Constitutional No chills 02/10/2019 Constitutional No diaphoresis 02/10/2019 Constitutional No malaise 02/10/2019 Eyes No blindness 2018 Ears/Nose/Throat/Neck nasal allergies 02/10/2019 Ears/Nose/Throat/Neck nasal discharge 02/10/2019 Ears/Nose/Throat/Neck postnasal drip 02/10/2019 Cardiovascular No chest pain/pressure 02/10/2019 Cardiovascular No dyspnea 02/10/2019 Respiratory cough 2018 Respiratory No dyspnea on exertion 02/10/2019 Respiratory No dyspnea 0 02/10/2019 Respiratory No wheezing 02/10/2019 Gastrointestinal No constipation 02/10/2019 Gastrointestinal No diarrhea 02/10/2019 Gastrointestinal No nausea 02/10/2019 Gastrointestinal No vomiting 02/10/2019 Dermatologic No rash 09/2019 Neurologic No alteration of consciousness 02/10/2019 Neurologic No mental status change 02/10/2019 Constitutional recent illness 02/10/2019 Constitutional No anorexia 02/10/2019 Constitutional No night sweats 02/10/2019 Constitutional No fatigue 02/10/2019 Constitutional No fever 02/10/2019 Constitutional No insomnia 02/10/2019 Dermatologic erythema Constitutional recent illness 01/12/2019 Constitutional chills Constitutional fever Eyes No eye erythema Ears/Nose/Throat/Neck nasal allergies 01/12/2019 Ears/Nose/Throat/Neck nasal discharge 01/12/2019 Ears/Nose/Throat/Neck postnasal drip 01/12/2019 Ears/Nose/Throat/Neck sinus congestion 01/12/2019 Cardiovascular No chest pain/pressure 01/12/2019 Respiratory productive sputum 01/12/2019 Respiratory cough 2018 Respiratory wheezing Gastrointestinal No abdominal pain 01/12/2019 Musculoskeletal No joint complaint 01/12/2019 Dermatologic No rash Neurologic No alteration of consciousness 01/12/2019 Neurologic No mental status change 01/12/2019 Constitutional recent illness 12/29/2018 Constitutional No chills 12/29/2018 Constitutional No diaphoresis 12/29/2018 Eyes No blindness 2018 Ears/Nose/Throat/Neck nasal allergies 12/29/2018 Ears/Nose/Throat/Neck nasal discharge 12/29/2018 Ears/Nose/Throat/Neck postnasal drip 12/29/2018 Cardiovascular No chest pain/pressure 12/29/2018 Cardiovascular No dyspnea 12/29/2018 Respiratory cough 2018 Respiratory dyspnea on exertion 12/29/2018 Respiratory No dyspnea 0 12/29/2018 Respiratory wheezing Gastrointestinal No constipation 12/29/2018 Gastrointestinal No diarrhea 12/29/2018 Gastrointestinal No nausea 12/29/2018 Gastrointestinal No vomiting 12/29/2018 Dermatologic No rash Neurologic No alteration of consciousness 12/29/2018 Neurologic No mental status change 12/29/2018 Constitutional malaise 0 12/29/2018 Constitutional No recent illness 09/20/2018 Constitutional No anorexia 09/20/2018 Constitutional No night sweats 09/20/2018 Constitutional No chills 09/20/2018 Constitutional No diaphoresis 09/20/2018 Constitutional fatigue 1 11/20/2017 Constitutional No fever 09/20/2018 Constitutional No malaise 09/20/2018 Ears/Nose/Throat/Neck No dizziness 09/20/2018 Ears/Nose/Throat/Neck No headache 09/20/2018 Cardiovascular No chest pain/pressure 09/20/2018 Cardiovascular No dyspnea 09/20/2018 Cardiovascular No edema 09/20/2018 Respiratory No cough Gastrointestinal No abdominal pain 09/20/2018 Gastrointestinal No constipation 09/20/2018 Musculoskeletal No joint complaint 09/20/2018 Neurologic No alteration of consciousness 09/20/2018 Psychiatric anxiety 09/02 Constitutional No insomnia 09/20/2018 Constitutional No recent illness 06/09/2018 Constitutional No fatigue 06/09/2018 Constitutional No fever 06/09/2018 Cardiovascular No dyspnea 06/09/2018 Cardiovascular No fatigue 06/09/2018 Respiratory No cough 06/2018 Gastrointestinal No abdominal pain 06/09/2018 Psychiatric anxiety 08/0 06/2018 Psychiatric No depression 06/09/2018 Constitutional No recent illness 05/03/2018 Constitutional No anorexia 05/03/2018 Constitutional No night sweats 05/03/2018 Constitutional No chills 05/03/2018 Constitutional No diaphoresis 05/03/2018 Constitutional No fatigue 05/03/2018 Constitutional No fever 05/03/2018 Constitutional insomnia 05/03/2018 Constitutional No malaise 05/03/2018 Eyes No eye discharge Eyes No eye erythema 12/2017 Ears/Nose/Throat/Neck No dizziness 05/03/2018 Ears/Nose/Throat/Neck No headache 05/03/2018 Cardiovascular No chest pain/pressure 05/03/2018 Cardiovascular No dyspnea 05/03/2018 Cardiovascular No edema 05/03/2018 Respiratory No cough 12/2017 Gastrointestinal No abdominal pain 05/03/2018 Gastrointestinal No constipation 05/03/2018 Genitourinary/Nephrology No dysuria 05/03/2018 Musculoskeletal No joint complaint 05/03/2018 Dermatologic No rash 12/2017 Dermatologic No sores Neurologic No alteration of consciousness 05/03/2018 Psychiatric anxiety 07/0 12/2017 Constitutional recent illness 03/26/2017 Constitutional No anorexia 03/26/2017 Constitutional No night sweats 03/26/2017 Constitutional No chills 03/26/2017 Constitutional No diaphoresis 03/26/2017 Constitutional fatigue 0 03/26/2017 Constitutional No fever 03/26/2017 Constitutional insomnia 03/26/2017 Constitutional No malaise 03/26/2017 Constitutional No weight loss 03/26/2017 Constitutional No weight gain 03/26/2017 Cardiovascular No chest pain/pressure 03/26/2017 Dermatologic sores 03/26 Dermatologic rash 2016 Neurologic No alteration of consciousness 03/26/2017 Musculoskeletal No joint complaint 03/26/2017 Constitutional recent illness 11/28/2016 Constitutional No anorexia 11/28/2016 Constitutional No night sweats 11/28/2016 Constitutional No diaphoresis 11/28/2016 Constitutional No chills 11/28/2016 Constitutional No fatigue 11/28/2016 Constitutional No fever 11/28/2016 Constitutional No insomnia 11/28/2016 Constitutional No malaise 11/28/2016 Constitutional No weight loss 11/28/2016 Constitutional No weight gain 11/28/2016 Psychiatric No depression 11/28/2016 Neurologic No alteration of consciousness 11/28/2016 Dermatologic No rash Dermatologic No sores Musculoskeletal No joint complaint 11/28/2016 Genitourinary/Nephrology No dysuria 11/28/2016 Gastrointestinal No abdominal pain 11/28/2016 Gastrointestinal No constipation 11/28/2016 Gastrointestinal No diarrhea 11/28/2016 Respiratory cough 2016 Cardiovascular No chest pain/pressure 11/28/2016 Cardiovascular No dyspnea 11/28/2016 Cardiovascular No edema 11/28/2016 Respiratory chest tightness 11/28/2016 Ears/Nose/Throat/Neck No dizziness 11/28/2016 Ears/Nose/Throat/Neck No headache 11/28/2016 Ears/Nose/Throat/Neck No nasal discharge 11/28/2016 Eyes No eye discharge Eyes No eye erythema Constitutional recent illness 11/18/2016 Constitutional No chills 11/18/2016 Constitutional No diaphoresis 11/18/2016 Constitutional fever Eyes No eye erythema Ears/Nose/Throat/Neck nasal allergies 11/18/2016 Ears/Nose/Throat/Neck nasal discharge 11/18/2016 Ears/Nose/Throat/Neck postnasal drip 11/18/2016 Cardiovascular No chest pain/pressure 11/18/2016 Cardiovascular No dyspnea 11/18/2016 Respiratory cough 2016 Respiratory No dyspnea 0 11/18/2016 Gastrointestinal No constipation 11/18/2016 Gastrointestinal No diarrhea 11/18/2016 Gastrointestinal No nausea 11/18/2016 Gastrointestinal No vomiting 11/18/2016 Dermatologic No rash Neurologic No alteration of consciousness 11/18/2016 Neurologic No mental status change 11/18/2016 Respiratory dyspnea on exertion 11/18/2016 Respiratory wheezing Constitutional No recent illness 05/06/2016 Constitutional No anorexia 05/06/2016 Constitutional No night sweats 05/06/2016 Constitutional No chills 05/06/2016 Constitutional No diaphoresis 05/06/2016 Constitutional No fatigue 05/06/2016 Constitutional No fever 05/06/2016 Constitutional insomnia 05/06/2016 Constitutional No malaise 05/06/2016 Eyes No eye discharge Eyes No eye erythema 03/2016 Ears/Nose/Throat/Neck No dizziness 05/06/2016 Ears/Nose/Throat/Neck No headache 05/06/2016 Cardiovascular No chest pain/pressure 05/06/2016 Cardiovascular No dyspnea 05/06/2016 Cardiovascular No edema 05/06/2016 Respiratory No cough 03/2016 Gastrointestinal No abdominal pain 05/06/2016 Gastrointestinal No constipation 05/06/2016 Gastrointestinal diarrhea 05/06/2016 Genitourinary/Nephrology No dysuria 05/06/2016 Musculoskeletal No joint complaint 05/06/2016 Dermatologic No rash 03/2016 Dermatologic No sores Neurologic No alteration of consciousness 05/06/2016 Psychiatric anxiety 07/0 03/2016 Constitutional No recent illness 04/21/2016 Constitutional No anorexia 04/21/2016 Constitutional No night sweats 04/21/2016 Constitutional No chills 04/21/2016 Constitutional No diaphoresis 04/21/2016 Constitutional No fatigue 04/21/2016 Constitutional No fever 04/21/2016 Constitutional insomnia 04/21/2016 Constitutional No malaise 04/21/2016 Eyes No eye discharge Eyes No eye erythema Ears/Nose/Throat/Neck No dizziness 04/21/2016 Ears/Nose/Throat/Neck No headache 04/21/2016 Cardiovascular No chest pain/pressure 04/21/2016 Cardiovascular No dyspnea 04/21/2016 Cardiovascular No edema 04/21/2016 Respiratory No cough Gastrointestinal No abdominal pain 04/21/2016 Gastrointestinal No constipation 04/21/2016 Gastrointestinal diarrhea 04/21/2016 Genitourinary/Nephrology No dysuria 04/21/2016 Musculoskeletal No joint complaint 04/21/2016 Dermatologic No rash Dermatologic No sores Neurologic No alteration of consciousness 04/21/2016 Psychiatric anxiety 04/03 Constitutional No recent illness 08/29/2015 Constitutional No anorexia 08/29/2015 Constitutional No night sweats 08/29/2015 Constitutional No chills 08/29/2015 Constitutional No diaphoresis 08/29/2015 Constitutional No fatigue 08/29/2015 Constitutional No fever 08/29/2015 Constitutional insomnia 08/29/2015 Constitutional No malaise 08/29/2015 Constitutional No weight loss 08/29/2015 Constitutional No weight gain 08/29/2015 Eyes No eye discharge Eyes No eye erythema Ears/Nose/Throat/Neck No dizziness 08/29/2015 Ears/Nose/Throat/Neck No headache 08/29/2015 Cardiovascular No chest pain/pressure 08/29/2015 Cardiovascular No dyspnea 08/29/2015 Cardiovascular No edema 08/29/2015 Respiratory No cough Gastrointestinal No abdominal pain 08/29/2015 Gastrointestinal No constipation 08/29/2015 Gastrointestinal diarrhea 08/29/2015 Genitourinary/Nephrology No dysuria 08/29/2015 Musculoskeletal No joint complaint 08/29/2015 Dermatologic No rash Dermatologic No sores Neurologic No alteration of consciousness 08/29/2015 Psychiatric anxiety 08/03 Constitutional insomnia 05/11/2015 Constitutional No recent illness 05/11/2015 Constitutional No anorexia 05/11/2015 Constitutional No night sweats 05/11/2015 Constitutional No chills 05/11/2015 Constitutional No diaphoresis 05/11/2015 Constitutional No fatigue 05/11/2015 Constitutional No fever 05/11/2015 Constitutional No malaise 05/11/2015 Constitutional No weight loss 05/11/2015 Constitutional No weight gain 05/11/2015 Eyes No eye discharge Eyes No eye erythema 08/2015 Ears/Nose/Throat/Neck No dizziness 05/11/2015 Ears/Nose/Throat/Neck No headache 05/11/2015 Psychiatric anxiety 05/02 Cardiovascular No chest pain/pressure 05/11/2015 Cardiovascular No dyspnea 05/11/2015 Cardiovascular No edema 05/11/2015 Respiratory No cough 08/2015 Gastrointestinal No abdominal pain 05/11/2015 Gastrointestinal No constipation 05/11/2015 Gastrointestinal diarrhea 05/11/2015 Genitourinary/Nephrology No dysuria 05/11/2015 Musculoskeletal No joint complaint 05/11/2015 Dermatologic No rash 08/2015 Dermatologic No sores Neurologic No alteration of consciousness 05/11/2015 Physical Exam Exam Name System Name It em Name Status Result Effective Dates Notes Full Exam - Dermatology Constitutional general appearance Overall: well nourished 06/15/2019 None Full Exam - Dermatology Constitutional general appearance Overall: well developed 06/15/2019 None Full Exam - Dermatology Constitutional general appearance Overall: in no acute distress 06/15/2019 None Full Exam - Dermatology Constitutional general appearance Overall: of normal body habitus 06/15/2019 None Full Exam - Dermatology Constitutional general appearance Overall: well groomed 06/15/2019 None Full Exam - Dermatology Respiratory auscultation Overall: breath sounds clear bilaterally 06/15/2019 None Full Exam - Dermatology Respiratory respiratory effort/rhythm Overall: no retractions 06/15/2019 None Full Exam - Dermatology Respiratory respiratory effort/rhythm Overall: normal rate 06/15/2019 None Full Exam - Dermatology Extremities inspection & palpation Left toes: inflammation 06/15/2019 None Full Exam - Dermatology Extremities inspection & palpation Left toes: on the index toe 06/15/2019 erythema and swelling Full Exam - Dermatology Psychiatric orientation Overall: oriented to person, place and time 06/15/2019 None Full Exam - Dermatology Eyes conjunctiva/eyelids Overall: clear conjunctiva bilaterally 06/15/2019 None Full Exam - Dermatology Eyes conjunctiva/eyelids Overall: clear corneas 06/15/2019 None Full Exam - Dermatology Eyes conjunctiva/eyelids Overall: normal eyelids 06/15/2019 None Full Exam - Dermatology Ears/Nose/Throat lips/teeth/gingiva Overall: benign lips 06/15/2019 None Full Exam - Dermatology Musculoskeletal head and neck Overall: head atraumatic 06/15/2019 None Full Exam - Dermatology Constitutional general appearance Overall: well nourished 06/03/2019 None Full Exam - Dermatology Constitutional general appearance Overall: well developed 06/03/2019 None Full Exam - Dermatology Constitutional general appearance Overall: of normal body habitus 06/03/2019 None Full Exam - Dermatology Constitutional general appearance Overall: in no acute distress 06/03/2019 None Full Exam - Dermatology Constitutional general appearance Overall: well groomed 06/03/2019 None Full Exam - Dermatology Respiratory auscultation Overall: breath sounds clear bilaterally 06/03/2019 None Full Exam - Dermatology Respiratory respiratory effort/rhythm Overall: no retractions 06/03/2019 None Full Exam - Dermatology Respiratory respiratory effort/rhythm Overall: normal rate 06/03/2019 None Full Exam - Dermatology Psychiatric orientation Overall: oriented to person, place and time 06/03/2019 None Full Exam - Dermatology Extremities inspection & palpation Left toes: inflammation 06/03/2019 None Full Exam - Dermatology Extremities inspection & palpation Left toes: on the index toe 06/03/2019 erythema and swelling Full Exam - General 1994 Constitutional general appearance Overall: well developed 03/22/2019 None Full Exam - General 1994 Constitutional general appearance Overall: in no acute distress 03/22/2019 None Full Exam - General 1994 Constitutional general appearance Overall: well nourished 03/22/2019 None Full Exam - General 1994 Ears/Nose/Throat oral cavity/pharynx/larynx Overall: no masses 03/22/2019 None Full Exam - General 1994 Respiratory auscultation Overall: breath sounds clear bilaterally 03/22/2019 None Full Exam - General 1994 Respiratory respiratory effort/rhythm Overall: no retractions 03/22/2019 None Full Exam - General 1994 Respiratory respiratory effort/rhythm Overall: normal rate 03/22/2019 None Full Exam - General 1994 Cardiovascular extremities Overall: no clubbing 03/22/2019 None Full Exam - General 1994 Cardiovascular auscultation of heart Overall: regular rate 03/22/2019 None Full Exam - General 1994 Cardiovascular auscultation of heart Overall: normal heart sounds 03/22/2019 None Full Exam - General 1994 Cardiovascular auscultation of heart Overall: no murmurs 03/22/2019 None Full Exam - General 1994 Psychiatric orientation/consciousness Overall: oriented to person, place and time 03/22/2019 None Full Exam - General 1994 Abdomen abdominal exam Overall: no tenderness 03/22/2019 None Full Exam - ENT Constitutional general appearance Overall: well nourished 02/10/2019 None Full Exam - ENT Constitutional general appearance Overall: well developed 02/10/2019 None Full Exam - ENT Constitutional general appearance Overall: in no acute distress 02/10/2019 None Full Exam - ENT Ears/Nose/Throat otoscopic exam Overall: external auditory canals normal 02/10/2019 None Full Exam - ENT Ears/Nose/Throat otoscopic exam Left tympanic membrane: air-fluid le mick 02/10/2019 None Full Exam - ENT Ears/Nose/Throat otoscopic exam Right tympanic membrane: air-fluid level 02/10/2019 None Full Exam - ENT Ears/Nose/Throat lips/teeth/gingiva Overall: benign lips 02/10/2019 None Full Exam - ENT Ears/Nose/Throat oropharynx Overall: oral mucosa clear 02/10/2019 None Full Exam - ENT Ears/Nose/Throat oropharynx Posterior Pharynx: clear post nasal drainage 02/10/2019 None Full Exam - ENT Ears/Nose/Throat oropharynx Posterior Pharynx: erythema 02/10/2019 None Full Exam - ENT Respiratory inspection Overall: no retractions 02/10/2019 None Full Exam - ENT Respiratory inspection Overall: normal rate 09/2019 None Full Exam - ENT Cardiovascular auscultation of heart Rate: normal rate 02/10/2019 None Full Exam - ENT Cardiovascular auscultation of heart Rhythm: regular rhythm 02/10/2019 None Full Exam - ENT Lymphatic palpation of lymph nodes Overall: shotty lymphadenopathy 02/10/2019 None Full Exam - ENT Neurologic mood and affect Overall: normal mood 02/10/2019 None Full Exam - ENT Neurologic mood and affect Overall: normal affect 02/10/2019 None Full Exam - ENT Neurologic orientation Overall: oriented to person, place a nd time 02/10/2019 None Full Exam - Cardiology Respiratory auscultation Overall: breath sounds clear bilaterally 02/10/2019 None Full Exam - Cardiology Respiratory respiratory effort/rhythm Overall: no retractions 02/10/2019 None Full Exam - Cardiology Respiratory respiratory effort/rhythm Overall: normal rate 02/10/2019 None Full Exam - Cardiology Cardiovascular extremities Overall: no clubbing 02/10/2019 None Full Exam - Cardiology Cardiovascular extremities Edema present: unilateral 02/10/2019 swelling and erthema righ t lateral foot -no calf tenderness -varicose veins noted bilaterally Full Exam - General 1994 Constitutional general appearance Overall: well developed 01/12/2019 None Full Exam - General 1994 Constitutional general appearance Overall: in no acute distress 01/12/2019 None Full Exam - General 1994 Constitutional general appearance Overall: well nourished 01/12/2019 None Full Exam - General 1994 Eyes conjunctiva/eyelids Overall: conjunctiva clear 01/12/2019 None Full Exam - General 1994 Eyes conjunctiva/eyelids Overall: eyelids normal 01/12/2019 None Full Exam - General 1994 Ears/Nose/Throat otoscopic exam Overall: external auditory canals clear 01/12/2019 None Full Exam - General 1994 Ears/Nose/Throat otoscopic exam Tympanic membrane: air-fluid level 01/12/2019 None Full Exam - General 1994 Ears/Nose/Throat lips/teeth/gingiva Overall: benign lips 01/12/2019 None Full Exam - General 1994 Ears/Nose/Throat oral cavity/pharynx/larynx Overall: oral mucosa clear 01/12/2019 None Full Exam - General 1994 Ears/Nose/Throat oral cavity/pharynx/larynx Posterior Pharynx: clear post nasal drainage 01/12/2019 None Full Exam - General 1994 Respiratory auscultation Diffuse: diminished 01/12/2019 None Full Exam - General 1994 Respiratory auscultation Lower lung field: expiratory wheezes 01/12/2019 None Full Exam - General 1994 Respiratory respiratory effort/rhythm Overall: no retractions 01/12/2019 None Full Exam - General 1994 Respiratory respiratory effort/rhythm Overall: normal rate 01/12/2019 None Full Exam - General 1994 Cardiovascular auscultation of heart Overall: regular rate 01/12/2019 None Full Exam - General 1994 Cardiovascular auscultation of heart Overall: normal heart sounds 01/12/2019 None Full Exam - General 1994 Lymphatic neck nodes Overall: anterior cervical chain benign 01/12/2019 None Full Exam - General 1994 Lymphatic neck nodes Overall: posterior cervical chain benign 01/12/2019 None Full Exam - General 1994 Integument inspection of skin Overall: few scattered moles, no gross abnormalities 01/12/2019 None Full Exam - General 1994 Neurologic cranial nerves Overall: crainial nerves 2 - 12 grossly intact 01/12/2019 None Full Exam - General 1994 Psychiatric orientation/consciousness Overall: oriented to person, place and time 01/12/2019 None Full Exam - General 1994 Psychiatric mood and affect Overall: normal mood and affect 01/12/2019 None Full Exam - ENT Constitutional general appearance Overall: well nourished 12/29/2018 None Full Exam - ENT Constitutional general appearance Overall: well developed 12/29/2018 None Full Exam - ENT Constitutional general appearance Overall: in no acute distress 12/29/2018 None Full Exam - ENT Ears/Nose/Throat otoscopic exam Overall: external auditory canals normal 12/29/2018 None Full Exam - ENT Ears/Nose/Throat otoscopic exam Left tympanic membrane: air-fluid le mick 12/29/2018 None Full Exam - ENT Ears/Nose/Throat otoscopic exam Right tympanic membrane: air-fluid level 12/29/2018 None Full Exam - ENT Ears/Nose/Throat lips/teeth/gingiva Overall: benign lips 12/29/2018 None Full Exam - ENT Ears/Nose/Throat oropharynx Overall: oral mucosa clear 12/29/2018 None Full Exam - ENT Ears/Nose/Throat oropharynx Posterior Pharynx: clear post nasal drainage 12/29/2018 None Full Exam - ENT Ears/Nose/Throat oropharynx Posterior Pharynx: erythema 12/29/2018 None Full Exam - ENT Respiratory inspection Overall: no retractions 12/29/2018 None Full Exam - ENT Respiratory inspection Overall: normal rate None Full Exam - ENT Cardiovascular auscultation of heart Rate: normal rate 12/29/2018 None Full Exam - ENT Cardiovascular auscultation of heart Rhythm: regular rhythm 12/29/2018 None Full Exam - ENT Neurologic mood and affect Overall: normal mood 12/29/2018 None Full Exam - ENT Neurologic mood and affect Overall: normal affect 12/29/2018 None Full Exam - ENT Neurologic orientation Overall: oriented to person, place a nd time 12/29/2018 None Full Exam - ENT Respiratory auscultation Left upper lung field: rhonchi 12/29/2018 None Full Exam - ENT Respiratory auscultation Right upper lung field: rhonchi 12/29/2018 None Full Exam - ENT Respiratory auscultation Basilar: clear 9 None Full Exam - ENT Lymphatic palpation of lymph nodes Overall: shotty lymphadenopathy 12/29/2018 None Full Exam - General 1994 Constitutional general appearance Overall: well developed 09/20/2018 None Full Exam - General 1994 Constitutional general appearance Overall: in no acute distress 09/20/2018 None Full Exam - General 1994 Constitutional general appearance Overall: well nourished 09/20/2018 None Full Exam - General 1994 Eyes conjunctiva/eyelids Overall: conjunctiva clear 09/20/2018 None Full Exam - General 1994 Eyes conjunctiva/eyelids Overall: cornea clear 09/20/2018 None Full Exam - General 1994 Eyes conjunctiva/eyelids Overall: eyelids normal 09/20/2018 None Full Exam - General 1994 Eyes pupils and irises Overall: pupils equal, round, reactive to light and accomodation 09/20/2018 None Full Exam - General 1994 Ears/Nose/Throat oral cavity/pharynx/larynx Overall: oral mucosa clear 09/20/2018 None Full Exam - General 1994 Ears/Nose/Throat oral cavity/pharynx/larynx Overall: oropharyngeal mucosa clear 09/20/2018 None Full Exam - General 1994 Ears/Nose/Throat oral cavity/pharynx/larynx Overall: no masses 09/20/2018 None Full Exam - General 1994 Respiratory auscultation Overall: breath sounds clear bilaterally 09/20/2018 None Full Exam - General 1994 Respiratory respiratory effort/rhythm Overall: no retractions 09/20/2018 None Full Exam - General 1994 Respiratory respiratory effort/rhythm Overall: normal rate 09/20/2018 None Full Exam - General 1994 Cardiovascular extremities Overall: no clubbing 09/20/2018 None Full Exam - General 1994 Cardiovascular auscultation of heart Overall: regular rate 09/20/2018 None Full Exam - General 1994 Cardiovascular auscultation of heart Overall: normal heart sounds 09/20/2018 None Full Exam - General 1994 Cardiovascular auscultation of heart Overall: no murmurs 09/20/2018 None Full Exam - General 1994 Musculoskeletal gait and station Overall: normal gait 09/20/2018 None Full Exam - General 1994 Musculoskeletal gait and station Overall: normal station 09/20/2018 None Full Exam - General 1994 Psychiatric orientation/consciousness Overall: oriented to person, place and time 09/20/2018 None Full Exam - General 1994 Constitutional general appearance Overall: well developed 06/09/2018 None Full Exam - General 1994 Constitutional general appearance Overall: in no acute distress 06/09/2018 None Full Exam - General 1994 Constitutional general appearance Overall: well nourished 06/09/2018 None Full Exam - General 1994 Ears/Nose/Throat oral cavity/pharynx/larynx Overall: no masses 06/09/2018 None Full Exam - General 1994 Respiratory auscultation Overall: breath sounds clear bilaterally 06/09/2018 None Full Exam - General 1994 Respiratory respiratory effort/rhythm Overall: no retractions 06/09/2018 None Full Exam - General 1994 Respiratory respiratory effort/rhythm Overall: normal rate 06/09/2018 None Full Exam - General 1994 Cardiovascular extremities Overall: no clubbing 06/09/2018 None Full Exam - General 1994 Cardiovascular auscultation of heart Overall: regular rate 06/09/2018 None Full Exam - General 1994 Cardiovascular auscultation of heart Overall: normal heart sounds 06/09/2018 None Full Exam - General 1994 Cardiovascular auscultation of heart Overall: no murmurs 06/09/2018 None Full Exam - General 1994 Psychiatric orientation/consciousness Overall: oriented to person, place and time 06/09/2018 None Full Exam - General 1994 Constitutional general appearance Overall: well developed 05/03/2018 None Full Exam - General 1994 Constitutional general appearance Overall: in no acute distress 05/03/2018 None Full Exam - General 1994 Constitutional general appearance Overall: well nourished 05/03/2018 None Full Exam - General 1994 Ears/Nose/Throat otoscopic exam Overall: external auditory canals clear 05/03/2018 None Full Exam - General 1994 Ears/Nose/Throat otoscopic exam Overall: tympanic membranes clear 05/03/2018 None Full Exam - General 1994 Ears/Nose/Throat oral cavity/pharynx/larynx Overall: oral mucosa clear 05/03/2018 None Full Exam - General 1994 Ears/Nose/Throat oral cavity/pharynx/larynx Overall: oropharyngeal mucosa clear 05/03/2018 None Full Exam - General 1994 Ears/Nose/Throat oral cavity/pharynx/larynx Overall: no masses 05/03/2018 None Full Exam - General 1994 Respiratory auscultation Overall: breath sounds clear bilaterally 05/03/2018 None Full Exam - General 1994 Respiratory respiratory effort/rhythm Overall: no retractions 05/03/2018 None Full Exam - General 1994 Respiratory respiratory effort/rhythm Overall: normal rate 05/03/2018 None Full Exam - General 1994 Cardiovascular extremities Overall: no clubbing 05/03/2018 None Full Exam - General 1994 Cardiovascular auscultation of heart Overall: regular rate 05/03/2018 None Full Exam - General 1994 Cardiovascular auscultation of heart Overall: normal heart sounds 05/03/2018 None Full Exam - General 1994 Cardiovascular auscultation of heart Overall: no murmurs 05/03/2018 None Full Exam - General 1994 Abdomen abdominal exam Overall: no tenderness 05/03/2018 None Full Exam - General 1994 Abdomen abdominal exam Overall: normal bowel sounds 05/03/2018 None Full Exam - General 1994 Musculoskeletal gait and station Overall: normal gait 05/03/2018 None Full Exam - General 1994 Musculoskeletal gait and station Overall: normal station 05/03/2018 None Full Exam - General 1994 Integument inspection of skin Overall: few scattered moles, no gross abnormalities 05/03/2018 None Full Exam - General 1994 Neurologic deep tendon reflexes Overall: deep tendon reflexes intact 05/03/2018 None Full Exam - General 1994 Psychiatric orientation/consciousness Overall: oriented to person, place and time 05/03/2018 None Full Exam - General 1994 Eyes pupils and irises Overall: pupils equal, round, reactive to light and accomodation 05/03/2018 None Full Exam - General 1994 Eyes conjunctiva/eyelids Overall: conjunctiva clear 05/03/2018 None Full Exam - General 1994 Eyes conjunctiva/eyelids Overall: eyelids normal 05/03/2018 None Full Exam - General 1994 Eyes conjunctiva/eyelids Overall: cornea clear 05/03/2018 None Full Exam - General 1994 Constitutional general appearance Overall: well developed 03/26/2017 None Full Exam - General 1994 Constitutional general appearance Overall: in no acute distress 03/26/2017 None Full Exam - General 1994 Constitutional general appearance Overall: well nourished 03/26/2017 None Full Exam - General 1994 Psychiatric orientation/consciousness Overall: oriented to person, place and time 03/26/2017 None Full Exam - General 1994 Respiratory auscultation Overall: breath sounds clear bilaterally 03/26/2017 None Full Exam - General 1994 Respiratory respiratory effort/rhythm Overall: no retractions 03/26/2017 None Full Exam - General 1994 Respiratory respiratory effort/rhythm Overall: normal rate 03/26/2017 None Full Exam - General 1994 Cardiovascular auscultation of heart Overall: regular rate 03/26/2017 None Full Exam - General 1994 Cardiovascular auscultation of heart Overall: normal heart sounds 03/26/2017 None Full Exam - General 1994 Cardiovascular extremities Overall: no clubbing 03/26/2017 None Full Exam - General 1994 Integument inspection of skin Location: left foot 03/26/2017 great toe with erythema a nd tenderness at base of toenail Full Exam - General 1994 Integument inspection of skin Location: right foot 03/26/2017 excoriation bilateral fee t with occasional pustules noted Full Exam - ENT Constitutional general appearance Overall: well nourished 11/28/2016 None Full Exam - ENT Constitutional general appearance Overall: well developed 11/28/2016 None Full Exam - ENT Constitutional general appearance Overall: in no acute distress 11/28/2016 None Full Exam - ENT Neurologic orientation Overall: oriented to person, place a nd time 11/28/2016 None Full Exam - ENT Integument inspection of skin Overall: no rash, lesions 11/28/2016 None Full Exam - ENT Musculoskeletal spine, ribs and pelvis Overall: good posture 11/28/2016 None Full Exam - ENT Lymphatic palpation of lymph nodes Overall: anterior cervical chain benign 11/28/2016 None Full Exam - ENT Lymphatic palpation of lymph nodes Overall: posterior cervical chain benign 11/28/2016 None Full Exam - ENT Abdomen abdominal exam Overall: normal bowel sounds 11/28/2016 None Full Exam - ENT Abdomen abdominal exam Overall: no tenderness 11/28/2016 None Full Exam - ENT Cardiovascular auscultation of heart Overall: regular rate 11/28/2016 None Full Exam - ENT Cardiovascular auscultation of heart Overall: normal heart sounds 11/28/2016 None Full Exam - ENT Cardiovascular auscultation of heart Overall: no murmurs 11/28/2016 None Full Exam - ENT Respiratory auscultation Overall: breath sounds clear bilater ally 11/28/2016 None Full Exam - ENT Respiratory inspection Overall: no retractions 11/28/2016 None Full Exam - ENT Respiratory inspection Overall: normal rate None Full Exam - ENT Face and Head palpation Overall: no sinus tenderness 11/28/2016 None Full Exam - ENT Ears/Nose/Throat otoscopic exam Overall: external auditory canals normal 11/28/2016 None Full Exam - ENT Ears/Nose/Throat otoscopic exam Overall: tympanic membranes normal 11/28/2016 None Full Exam - ENT Constitutional general appearance Overall: well nourished 11/18/2016 None Full Exam - ENT Constitutional general appearance Overall: well developed 11/18/2016 None Full Exam - ENT Constitutional general appearance Overall: in no acute distress 11/18/2016 None Full Exam - ENT Ears/Nose/Throat otoscopic exam Overall: external auditory canals normal 11/18/2016 None Full Exam - ENT Ears/Nose/Throat otoscopic exam Left tympanic membrane: air-fluid le mick 11/18/2016 None Full Exam - ENT Ears/Nose/Throat otoscopic exam Right tympanic membrane: air-fluid level 11/18/2016 None Full Exam - ENT Ears/Nose/Throat lips/teeth/gingiva Overall: benign lips 11/18/2016 None Full Exam - ENT Ears/Nose/Throat oropharynx Overall: oral mucosa clear 11/18/2016 None Full Exam - ENT Ears/Nose/Throat oropharynx Posterior Pharynx: clear post nasal drainage 11/18/2016 None Full Exam - ENT Respiratory inspection Overall: no retractions 11/18/2016 None Full Exam - ENT Respiratory inspection Overall: normal rate None Full Exam - ENT Cardiovascular auscultation of heart Rate: normal rate 11/18/2016 None Full Exam - ENT Cardiovascular auscultation of heart Rhythm: regular rhythm 11/18/2016 None Full Exam - ENT Lymphatic palpation of lymph nodes Overall: anterior cervical chain benign 11/18/2016 None Full Exam - ENT Lymphatic palpation of lymph nodes Overall: posterior cervical chain benign 11/18/2016 None Full Exam - ENT Neurologic mood and affect Overall: normal mood 11/18/2016 None Full Exam - ENT Neurologic mood and affect Overall: normal affect 11/18/2016 None Full Exam - ENT Neurologic orientation Overall: oriented to person, place a nd time 11/18/2016 None Full Exam - ENT Ears/Nose/Throat oropharynx Posterior Pharynx: erythema 11/18/2016 None Full Exam - ENT Respiratory auscultation Right lower lung field: expiratory w heezes 11/18/2016 None Full Exam - ENT Respiratory auscultation Left lower lung field: expiratory wh eezes 11/18/2016 None Full Exam - General 1994 Constitutional general appearance Overall: well developed 05/06/2016 None Full Exam - General 1994 Constitutional general appearance Overall: in no acute distress 05/06/2016 None Full Exam - General 1994 Constitutional general appearance Overall: well nourished 05/06/2016 None Full Exam - General 1994 Ears/Nose/Throat oral cavity/pharynx/larynx Overall: no masses 05/06/2016 None Full Exam - General 1994 Respiratory auscultation Overall: breath sounds clear bilaterally 05/06/2016 None Full Exam - General 1994 Respiratory respiratory effort/rhythm Overall: no retractions 05/06/2016 None Full Exam - General 1994 Respiratory respiratory effort/rhythm Overall: normal rate 05/06/2016 None Full Exam - General 1994 Cardiovascular extremities Overall: no clubbing 05/06/2016 None Full Exam - General 1994 Cardiovascular auscultation of heart Overall: regular rate 05/06/2016 None Full Exam - General 1994 Cardiovascular auscultation of heart Overall: normal heart sounds 05/06/2016 None Full Exam - General 1994 Cardiovascular auscultation of heart Overall: no murmurs 05/06/2016 None Full Exam - General 1994 Psychiatric orientation/consciousness Overall: oriented to person, place and time 05/06/2016 None Full Exam - General 1994 Constitutional general appearance Overall: well developed 04/21/2016 None Full Exam - General 1994 Constitutional general appearance Overall: in no acute distress 04/21/2016 None Full Exam - General 1994 Constitutional general appearance Overall: well nourished 04/21/2016 None Full Exam - General 1994 Ears/Nose/Throat otoscopic exam Overall: external auditory canals clear 04/21/2016 None Full Exam - General 1994 Ears/Nose/Throat otoscopic exam Overall: tympanic membranes clear 04/21/2016 None Full Exam - General 1994 Ears/Nose/Throat oral cavity/pharynx/larynx Overall: oral mucosa clear 04/21/2016 None Full Exam - General 1994 Ears/Nose/Throat oral cavity/pharynx/larynx Overall: oropharyngeal mucosa clear 04/21/2016 None Full Exam - General 1994 Ears/Nose/Throat oral cavity/pharynx/larynx Overall: no masses 04/21/2016 None Full Exam - General 1994 Respiratory auscultation Overall: breath sounds clear bilaterally 04/21/2016 None Full Exam - General 1994 Respiratory respiratory effort/rhythm Overall: no retractions 04/21/2016 None Full Exam - General 1994 Respiratory respiratory effort/rhythm Overall: normal rate 04/21/2016 None Full Exam - General 1994 Cardiovascular extremities Overall: no clubbing 04/21/2016 None Full Exam - General 1994 Cardiovascular auscultation of heart Overall: regular rate 04/21/2016 None Full Exam - General 1994 Cardiovascular auscultation of heart Overall: normal heart sounds 04/21/2016 None Full Exam - General 1994 Cardiovascular auscultation of heart Overall: no murmurs 04/21/2016 None Full Exam - General 1994 Abdomen abdominal exam Overall: no tenderness 04/21/2016 None Full Exam - General 1994 Abdomen abdominal exam Overall: normal bowel sounds 04/21/2016 None Full Exam - General 1994 Musculoskeletal gait and station Overall: normal gait 04/21/2016 None Full Exam - General 1994 Musculoskeletal gait and station Overall: normal station 04/21/2016 None Full Exam - General 1994 Integument inspection of skin Overall: few scattered moles, no gross abnormalities 04/21/2016 None Full Exam - General 1994 Neurologic deep tendon reflexes Overall: deep tendon reflexes intact 04/21/2016 None Full Exam - General 1994 Psychiatric orientation/consciousness Overall: oriented to person, place and time 04/21/2016 None Full Exam - General 1994 Constitutional general appearance Overall: well developed 08/29/2015 None Full Exam - General 1994 Constitutional general appearance Overall: in no acute distress 08/29/2015 None Full Exam - General 1994 Constitutional general appearance Overall: well nourished 08/29/2015 None Full Exam - General 1994 Ears/Nose/Throat otoscopic exam Overall: external auditory canals clear 08/29/2015 None Full Exam - General 1994 Ears/Nose/Throat otoscopic exam Overall: tympanic membranes clear 08/29/2015 None Full Exam - General 1994 Ears/Nose/Throat oral cavity/pharynx/larynx Overall: oral mucosa clear 08/29/2015 None Full Exam - General 1994 Ears/Nose/Throat oral cavity/pharynx/larynx Overall: oropharyngeal mucosa clear 08/29/2015 None Full Exam - General 1994 Ears/Nose/Throat oral cavity/pharynx/larynx Overall: no masses 08/29/2015 None Full Exam - General 1994 Respiratory auscultation Overall: breath sounds clear bilaterally 08/29/2015 None Full Exam - General 1994 Respiratory respiratory effort/rhythm Overall: no retractions 08/29/2015 None Full Exam - General 1994 Respiratory respiratory effort/rhythm Overall: normal rate 08/29/2015 None Full Exam - General 1994 Cardiovascular extremities Overall: no clubbing 08/29/2015 None Full Exam - General 1994 Cardiovascular auscultation of heart Overall: regular rate 08/29/2015 None Full Exam - General 1994 Cardiovascular auscultation of heart Overall: normal heart sounds 08/29/2015 None Full Exam - General 1994 Cardiovascular auscultation of heart Overall: no murmurs 08/29/2015 None Full Exam - General 1994 Abdomen abdominal exam Overall: no tenderness 08/29/2015 None Full Exam - General 1994 Abdomen abdominal exam Overall: normal bowel sounds 08/29/2015 None Full Exam - General 1994 Musculoskeletal gait and station Overall: normal gait 08/29/2015 None Full Exam - General 1994 Musculoskeletal gait and station Overall: normal station 08/29/2015 None Full Exam - General 1994 Integument inspection of skin Overall: few scattered moles, no gross abnormalities 08/29/2015 None Full Exam - General 1994 Neurologic deep tendon reflexes Overall: deep tendon reflexes intact 08/29/2015 None Full Exam - General 1994 Psychiatric orientation/consciousness Overall: oriented to person, place and time 08/29/2015 None Full Exam - General 1994 Constitutional general appearance Overall: well developed 05/11/2015 None Full Exam - General 1994 Constitutional general appearance Overall: in no acute distress 05/11/2015 None Full Exam - General 1994 Constitutional general appearance Overall: well nourished 05/11/2015 None Full Exam - General 1994 Psychiatric orientation/consciousness Overall: oriented to person, place and time 05/11/2015 None Full Exam - General 1994 Neurologic deep tendon reflexes Overall: deep tendon reflexes intact 05/11/2015 None Full Exam - General 1994 Integument inspection of skin Overall: few scattered moles, no gross abnormalities 05/11/2015 None Full Exam - General 1994 Musculoskeletal gait and station Overall: normal station 05/11/2015 None Full Exam - General 1994 Musculoskeletal gait and station Overall: normal gait 05/11/2015 None Full Exam - General 1994 Abdomen abdominal exam Overall: no tenderness 05/11/2015 None Full Exam - General 1994 Abdomen abdominal exam Overall: normal bowel sounds 05/11/2015 None Full Exam - General 1994 Ears/Nose/Throat otoscopic exam Overall: tympanic membranes clear 05/11/2015 None Full Exam - General 1994 Ears/Nose/Throat otoscopic exam Overall: external auditory canals clear 05/11/2015 None Full Exam - General 1994 Ears/Nose/Throat oral cavity/pharynx/larynx Overall: oropharyngeal mucosa clear 05/11/2015 None Full Exam - General 1994 Ears/Nose/Throat oral cavity/pharynx/larynx Overall: no masses 05/11/2015 None Full Exam - General 1994 Ears/Nose/Throat oral cavity/pharynx/larynx Overall: oral mucosa clear 05/11/2015 None Full Exam - General 1994 Respiratory auscultation Overall: breath sounds clear bilaterally 05/11/2015 None Full Exam - General 1994 Respiratory respiratory effort/rhythm Overall: normal rate 05/11/2015 None Full Exam - General 1994 Respiratory respiratory effort/rhythm Overall: no retractions 05/11/2015 None Full Exam - General 1994 Cardiovascular auscultation of heart Overall: regular rate 05/11/2015 None Full Exam - General 1994 Cardiovascular auscultation of heart Overall: normal heart sounds 05/11/2015 None Full Exam - General 1994 Cardiovascular auscultation of heart Overall: no murmurs 05/11/2015 None Full Exam - General 1994 Cardiovascular extremities Overall: no clubbing 05/11/2015 None Procedures Procedure Codes Date TRIAMCINOLONE ACET I [place] NOS CPT-4: J3301 01/12/2019 ROCEPHIN, PER 250 MG CPT-4: J0696 01/12/2019 TRIAMCINOLONE ACET I [place] NOS CPT-4: J3301 11/18/2016 Vital Signs Date Vital 06/15/2019 Blood Pressure 1: 134/82 Code: 8480-6 BMI: 32.7 Code: 81150-3 Heart Rate 1: 114 bpm Height: 6'7" SpO2: 97% Weight: 290 lbs 06/03/2019 Blood Pressure 1: 138/72 Code: 8480-6 Heart Rate 1: 90 bpm Height: 6'7" SpO2: 96% Weight: 03/22/2019 Blood Pressure 1: 140/86 Code: 8480-6 BMI: 30.9 Code: 92580-1 Heart Rate 1: 94 bpm Height: 6'7" SpO2: 95% Weight: 274 lbs 6 oz 02/10/2019 Blood Pressure 1: 154/110 Code: 8480-6 Blood Pressure 1: 142/88 Code: 8480-6 BMI: 30.1 Code: 49496-5 Heart Rate 1: 84 bpm Height: 6'7" Height: SpO2: 98% Weight: 267 lbs Weight: 01/12/2019 Blood Pressure 1: 144/78 Code: 8480-6 BMI: 30.1 Code: 59289-6 Heart Rate 1: 102 bpm Height: 6'7" SpO2: 98% Weight: 267 lbs 12/29/2018 Blood Pressure 1: 138/88 Code: 8480-6 BMI: 30.1 Code: 13959-5 Heart Rate 1: 89 bpm Height: 6'7" SpO2: 98% Temperature: 36.5 (C ) / 97.7 (F) Weight: 267 lbs 09/20/2018 Blood Pressure 1: 132/80 Code: 8480-6 BMI: 29.5 Code: 23184-5 Heart Rate 1: 96 bpm Height: 6'7" SpO2: 98% Weight: 262 lbs 06/09/2018 Blood Pressure 1: 142/84 Code: 8480-6 BMI: 29.7 Code: 95225-6 Heart Rate 1: 89 bpm Height: 6'7" SpO2: 96% Weight: 264 lbs 05/03/2018 Blood Pressure 1: 150/78 Code: 8480-6 BMI: 28.8 Code: 64662-2 Heart Rate 1: 96 bpm Height: 6'7" SpO2: 97% Weight: 256 lbs 03/26/2017 Blood Pressure 1: 146/84 Code: 8480-6 BMI: 29.1 Code: 04627-3 Heart Rate 1: 87 bpm Height: 6'7" SpO2: 97% Weight: 258 lbs 11/28/2016 Blood Pressure 1: 136/68 Code: 8480-6 BMI: 28.8 Code: 82228-9 Heart Rate 1: 76 bpm Height: 6'7" SpO2: 97% Weight: 256 lbs 11/18/2016 Blood Pressure 1: 132/76 Code: 8480-6 BMI: 28.8 Code: 51044-0 Heart Rate 1: 97 bpm Height: 6'7" SpO2: 98% Temperature: 37.3 (C ) / 99.2 (F) Weight: 256 lbs 05/06/2016 Blood Pressure 1: 140/92 Code: 8480-6 BMI: 27.7 Code: 15935-4 Heart Rate 1: 103 bpm Height: 6'7" SpO2: 98% Weight: 246 lbs 04/21/2016 Blood Pressure 1: 152/80 Code: 8480-6 BMI: 28.1 Code: 91755-7 Heart Rate 1: 97 bpm Height: 6'7" SpO2: 98% Weight: 249 lbs 08/29/2015 Blood Pressure 1: 120/80 Code: 8480-6 BMI: 26.9 Code: 93286-6 Height: 6'7" Weight: 239 lbs 05/11/2015 Blood Pressure 1: 132/80 Code: 8480-6 Blood Pressure 2: 122/80 Code: 8480-6 BMI: 27.0 Code: 72039-3 Heart Rate 1: 92 bpm Height: 6'7" SpO2: 98% Weight: 240 lbs Functional Status No Functional Status data History of Present Illness Symptom Name Status Resu lt Effective Date Notes Location on the left 06/15/2019 None Quality acute 06/15/2019 None Quality worsening 06/15/2019 None Onset and Resolution o ngoing 06/15/2019 None Onset of Symptom 3 day s ago 06/15/2019 None Frequency of Episodes daily 06/15/2019 None Length of Episodes 3 d ays 06/15/2019 None Pertinent Findings red ness 06/15/2019 None Pertinent Findings swe lling 06/15/2019 None Location on the left 06/03/2019 None Quality acute 06/03/2019 None Quality worsening 06/03/2019 None Frequency of Episodes daily 06/03/2019 None Length of Episodes 3 d ays 06/03/2019 None Mechanism of injury un known 06/03/2019 None Pertinent Findings red ness 06/03/2019 None Pertinent Findings swe lling 06/03/2019 None Onset and Resolution o ngoing 06/03/2019 None Onset of Symptom 3 day s ago 06/03/2019 None Sports Participation n ot significant 06/03/2019 None Quality chronic 03/22/2019 None Quality intermittent 03/22/2019 None Onset and Resolution o ngoing 03/22/2019 None Triggers stress 03/22/2019 None Triggers performance 03/22/2019 None Alleviating Factors me dication 03/22/2019 None Quality stable 03/22/2019 None Quality intermittent 03/22/2019 None Quality productive 03/22/2019 None Onset and Resolution o ngoing 03/22/2019 None Onset of Symptom 3 mon ths ago 03/22/2019 None Frequency of Episodes daily 03/22/2019 None Pertinent Findings spu kajal production 03/22/2019 "sometimes green" Pertinent Findings pos t nasal drip 03/22/2019 (clear) Pertinent Findings Den ies fever 03/22/2019 None Quality acute 02/10/2019 None Quality intermittent 02/10/2019 None Onset and Resolution o ngoing 02/10/2019 None Onset of Symptom 3 day s ago 02/10/2019 None Pertinent Findings warren st discomfort 02/10/2019 None Pertinent Findings Den ies chills 02/10/2019 None Pertinent Findings fever 02/10/2019 None Pertinent Findings ill contacts 02/10/2019 -his son had strep throat last week Pertinent Findings let hargy 02/10/2019 None Pertinent Findings vasile al congestion 02/10/2019 None Pertinent Findings pos t nasal drip 02/10/2019 None Onset and Resolution s udden in onset 02/10/2019 None Onset of Symptom 3 day s ago 02/10/2019 None Frequency of Episodes daily 02/10/2019 None Pertinent Findings Den ies limb pain / tenderness 02/10/2019 None Location on the right leg 02/10/2019 None Quality painful 02/10/2019 None Limitation on Activities does not limit activities 02/10/2019 None Frequency of Episodes increasing 02/10/2019 None Triggers no known asso ciated factors 02/10/2019 None Quality acute 01/12/2019 None Quality intermittent 01/12/2019 None Onset of Symptom 3 day s ago 01/12/2019 None Frequency of Episodes Denies daily 01/12/2019 None Pertinent Findings warren st discomfort 01/12/2019 None Pertinent Findings Den ies chills 01/12/2019 None Pertinent Findings fever 01/12/2019 None Pertinent Findings ill contacts 01/12/2019 -his son had strep throat last week Pertinent Findings let hargy 01/12/2019 None Pertinent Findings vasile al congestion 01/12/2019 None Pertinent Findings pos t nasal drip 01/12/2019 None Onset and Resolution o ngoing 01/12/2019 None Quality acute 12/29/2018 None Quality intermittent 12/29/2018 None Onset and Resolution s udden in onset 12/29/2018 None Pertinent Findings fever 12/29/2018 None Pertinent Findings Den ies chills 12/29/2018 None Pertinent Findings warren st discomfort 12/29/2018 None Pertinent Findings ill contacts 12/29/2018 -his son had strep throat last week Pertinent Findings let hargy 12/29/2018 None Pertinent Findings vasile al congestion 12/29/2018 None Pertinent Findings pos t nasal drip 12/29/2018 None Onset of Symptom 3 day s ago 12/29/2018 None Frequency of Episodes Denies daily 12/29/2018 None anxiety Quality chronic 09/20/2018 None anxiety Quality improving 09/20/2018 None anxiety Quality intermit tent 09/20/2018 None anxiety Onset and Resolution ongoing 09/20/2018 None anxiety Triggers stress 09/20/2018 None anxiety Triggers perform ance 09/20/2018 None anxiety Alleviating Factors medication 09/20/2018 None anxiety Quality chronic 06/09/2018 None anxiety Quality intermit tent 06/09/2018 None anxiety Onset and Resolution ongoing 06/09/2018 None anxiety Triggers stress 06/09/2018 None anxiety Triggers perform ance 06/09/2018 None anxiety Alleviating Factors medication 06/09/2018 None anxiety Quality improving 06/09/2018 None well man exam (40-65 years) Urinary complaints none 05/03/2018 None well man exam (40-65 years) Lifestyle regular seatbelt use 05/03/2018 None well man exam (40-65 years) Lifestyle abnormal amount of stress 05/03/2018 None well man exam (40-65 years) Lifestyle abnormal sleep patterns 05/03/2018 None well man exam (40-65 years) Nutritio n and Exercise moderate exercise 05/03/2018 None anxiety Quality chronic 05/03/2018 None anxiety Quality intermit tent 05/03/2018 None anxiety Onset and Resolution ongoing 05/03/2018 None anxiety Triggers stress 05/03/2018 None anxiety Triggers perform ance 05/03/2018 None insomnia Quality constant 03/26/2017 None insomnia Quality improvi ng 03/26/2017 None insomnia Onset and Resolution ongoing 03/26/2017 None insomnia Onset of Symptom 1 months ago 03/26/2017 None foot pain Location on th e left 03/26/2017 red and tender at toenail foot pain Quality acute 03/26/2017 None foot pain Onset and Resolution ongoing 03/26/2017 None foot pain Onset of Symptom _ weeks ago 03/26/2017 None foot pain Limitation on Activities allows weight bearing activity 03/26/2017 None foot pain Severity mild 03/26/2017 None chest congestion Quality constant 11/28/2016 None chest congestion Onset and Resolution ongoing 11/28/2016 None chest congestion Onset and Resolution improved during the day 11/28/2016 None chest congestion Onset of Symptom _ days ago 11/28/2016 None chest congestion Severity mild 11/28/2016 None chest congestion Frequency of Episodes decreasing 11/28/2016 None chest congestion Timing of Episodes in the morning 11/28/2016 still feels chest tightness while exercising chest congestion Triggers ill contacts 11/28/2016 None chest congestion Pertinent Findings cough 11/28/2016 None chest congestion Pertinent Findings Denies fever 11/28/2016 None cough Location in the th roat 11/18/2016 None cough Quality constant 11/18/2016 None cough Quality hacking 11/18/2016 None cough Onset and Resolution sudden in onset 11/18/2016 None cough Frequency of Episodes daily 11/18/2016 None sinus congestion Location on both sides 11/18/2016 None sinus congestion Quality fullness 11/18/2016 None sinus congestion Quality pressure 11/18/2016 None sinus congestion Onset and Resolution sudden in onset 11/18/2016 None sinus congestion Onset of Symptom 3 weeks ago 11/18/2016 None sinus congestion Frequency of Episodes daily 11/18/2016 None sinus congestion Pertinent Findings cough 11/18/2016 None sinus congestion Pertinent Findings fever 11/18/2016 None sinus congestion Pertinent Findings hoarseness 11/18/2016 None anxiety Quality intermit tent 05/06/2016 None anxiety Onset and Resolution sudden in onset 05/06/2016 None anxiety Pertinent Findings insomnia 05/06/2016 None anxiety Pertinent Findings Denies palpitations 05/06/2016 None anxiety Pertinent Findings restlessness 05/06/2016 None anxiety Pertinent Findings sweating 05/06/2016 None insomnia Quality constant 05/06/2016 None insomnia Onset and Resolution ongoing 05/06/2016 None anxiety Quality improving 05/06/2016 None anxiety Onset of Symptom 1 months ago 05/06/2016 None insomnia Quality improvi ng 05/06/2016 None insomnia Onset of Symptom 1 months ago 05/06/2016 None anxiety Quality intermit tent 04/21/2016 None anxiety Onset and Resolution sudden in onset 04/21/2016 None anxiety Onset of Symptom 3 weeks ago 04/21/2016 None anxiety Pertinent Findings insomnia 04/21/2016 None anxiety Pertinent Findings Denies palpitations 04/21/2016 None anxiety Pertinent Findings restlessness 04/21/2016 None anxiety Pertinent Findings sweating 04/21/2016 None insomnia Quality constant 04/21/2016 None insomnia Onset and Resolution ongoing 04/21/2016 None insomnia Onset of Symptom 3 weeks ago 04/21/2016 None well man exam (40-65 years) Sexual Activit y is monogamous 05/11/2015 None well man exam (40-65 years) Nutritio n and Exercise normal weight 05/11/2015 None well man exam (40-65 years) Nutritio n and Exercise balanced nutrition 05/11/2015 exercises 6 days/week well man exam (40-65 years) Health Guidanc e fasting glucose every 3 years 05/11/2015 None well man exam (40-65 years) Lifestyle abnormal sleep patterns 05/11/2015 None Advance Directives No Advance Directive data Encounters Encounter Performer Loca tion Codes Date [id number] EST. PATIENT, LEVEL III Diagnosis: Pain in left toe(s)[ICD10: M79.675] Diagnosis: Cellulitis of left toe[ICD10: L03.032] Fay Crandall MD, [facility] CPT-4: 26025 06/15/2019 19091 EST. PATIENT, LEVEL II Diagnosis: Cellulitis of left toe[ICD10: L03.032] Alise Crandall MD, [facility] CPT-4: 05288 06/03/2019 ([id number]) 55052 EST. P ATIENT, LEVEL III Diagnosis: Acute recurrent maxillary sinusitis[ICD10: J01.01] Diagnosis: Generalized anxiety disorder[ICD10: F41.1] Sveta Crandall MD, [facility] CPT-4: 36824 03/22/2019 ([id number]) 72119 EST. P ATIENT, LEVEL III Diagnosis: Phlebitis and thrombophlebitis of superficial vessels of right lower extremity[ICD10: I80.01] Diagnosis: Effusion, right foot[ICD10: M25.474] Diagnosis: Cough[ICD10: R05] Diagnosis: Other allergic rhinitis[ICD10: J30.89] Sveta Crandall MD, [facility] CPT-4: 44215 02/10/2019 [id number] EST. PATIENT, LEVEL IV Diagnosis: Acute bronchitis due to other specified organisms[ICD10: J20.8] Diagnosis: Acute laryngopharyngitis[ICD10: J06.0] Diagnosis: Other allergic rhinitis[ICD10: J30.89] Fay Crandall MD, [facility] CPT-4: 07350 01/12/2019 ([id number]) 89718 EST. P ATIENT, LEVEL III Diagnosis: Acute laryngopharyngitis[ICD10: J06.0] Diagnosis: Acute recurrent maxillary sinusitis[ICD10: J01.01] Diagnosis: Cough[ICD10: R05] Diagnosis: Generalized anxiety disorder[ICD10: F41.1] Sveta Crandall MD, [facility] CPT-4: 11278 12/29/2018 ([id number]) 47935 EST. P ATIENT, LEVEL III Diagnosis: Generalized anxiety disorder[ICD10: F41.1] Sveta Crandall MD, [facility] CPT-4: 99522 09/20/2018 ([id number]) 13237 EST. P ATIENT, LEVEL III Diagnosis: Generalized anxiety disorder[ICD10: F41.1] Sveta Crandall MD, [facility] CPT-4: 08236 06/09/2018 ([id number]) PREV VISIT E ST AGE 40-64 Diagnosis: Encounter for general adult medical examination without abnormal findings[ICD10: Z00.00] Sveta Crandall MD, [facility] CPT-4: 45560 05/03/2018 ([id number]) 67265 EST. P ATIENT, LEVEL III Diagnosis: Cellulitis of left toe[ICD10: L03.032] Diagnosis: Adjustment insomnia[ICD10: F51.02] Diagnosis: Dermatitis, unspecified[ICD10: L30.9] Alise Crandall MD, [facility] CPT-4: 21705 03/26/2017 ([id number]) 48463 EST. P ATIENT, LEVEL III Diagnosis: Cough[ICD10: R05] Alise Crandall MD, [facility] CPT-4: 06129 11/28/2016 [id number] EST. PATIENT, LEVEL III Diagnosis: Acute laryngopharyngitis[ICD10: J06.0] Diagnosis: Acute bronchitis due to other specified organisms[ICD10: J20.8] Fay Crandall MD, [facility] CPT-4: 76180 11/18/2016 ([id number]) 42996 EST. P ATIENT, LEVEL III Diagnosis: Generalized anxiety disorder[ICD10: F41.1] Sveta Crandall MD, [facility] CPT-4: 37410 05/06/2016 ([id number]) 79065 EST. P ATIENT, LEVEL III Diagnosis: Generalized anxiety disorder[ICD10: F41.1] Sveta Crandall MD C CPT-4: 33555 04/21/2016 ([id number]) 58218 EST. P ATIENT, LEVEL III Diagnosis: Generalized anxiety disorder[ICD10: F41.1] Sveta Crandall MD, C CPT-4: 59995 08/29/2015 ([id number]) PREV VISIT E ST AGE 40-64 Diagnosis: Well adult exam[ICD9: V70.0] Diagnosis: Anxiety[ICD9: 300.00] Alise Crandall MD, [facility] CPT-4: 92986 05/11/2015 Plan of Care Planned Activity Notes C odes Status Date Visit Plan: ongoing Cellulitis - wi check labs and treat as indicated - continue with oral antibiotics as previously directed, return to clinic as previously directed, call for acute change in symptoms, worsening redness, warmth, discharge. 06/15/2019 Appointment: Fay [facility]el[id number] (15 min) Moderate 06/15/2019 Patient Education: Patient Medication Summary Completed 06/15/2019 Care Plan: Cbc With Differential Pending 06/15/2019 Care Plan: Uric Acid Pending 06/15/2019 Visit Plan: Cellulitis - continue w ith oral antibiotics as previously directed, return to clinic as previously directed, call for acute change in symptoms, worsening redness, warmth, discharge. 06/03/2019 Appointment: Alise Collins WPtel[phone] (15 min) Moderate 06/03/2019 Patient Education: Patient Medication Summary Completed 06/03/2019 Visit Plan: Sinusitis - Pt has acut e infection - pain in face, maxillary region, Pt informed to use decongestant, RX given to patient, sinus rinses also recommended. Call if symptoms do not show improvement. decadr on nasal spray at [facility] - if not improvement in one week - then ct scan of sinuses. tracy 03/22/2019 Appointment: [facility] [phone] [phone] (15 min) Moderate 03/22/2019 Patient Education: Patient Medication Summary Completed 03/22/2019 Visit Plan: Superficial thrombophle bitis -patient sent for venous doppler to r/o DVT -start full strength aspirin daily -rx for keflex provided and instructed on use- patient verbalized understanding of plan. Cough- residual from recent illness- start PPI daily -continue allergy medication and let us know if cough does not resolve or if any worse. ADDENDUM: Doctor's eval of the patient - I, Dr. Crandall, personally evaluated the patient with the nurse practitioner. I have reviewed the patient's chart, I have reviewed the patient's past medical history, problem list, medication list, and personal history. I agree with the documentation by the nurse practitioner in the HPI, physical exam, and the assessment and plan. 02/10/2019 Visit Plan: Superficial thrombophle bitis -patient sent for venous doppler to r/o DVT -start full strength aspirin daily -rx for keflex provided and instructed on use- patient verbalized understanding of plan. Cough- residual from recent illness- start PPI daily -continue allergy medication and let us know if cough does not resolve or if any worse. 02/10/2019 Appointment: Al[facility] Collins [facility]el[facility] [phone] [phone] (30 min) Complex 02/10/2019 Patient Education: Patient Medication Summary Completed 02/10/2019 Visit Plan: Bronchitis - acute case of bronchitis identified. Pt has been given antibiotics, breathing treatments as appropriate, and pt has been instructed to call if symptoms are not improved, or if symptoms acutely worsen. URI - Pt advised to increase fluids, vitamin C. Discussed natural and expected course of this diagnosis and need to alert me if symptoms do not follow expected course, or if any worse. RX sent to patient's pharmacy. Allergies - chronic - recommended pt to use allergy medication as prescribed. Pt has been counseled as to the appropriate use of the medication. Pt to call if allergy symptoms are not controlled with the medication. If using nasal spray, instructions as follows: Nasal spray- use twice daily, one spray per nostril twice daily, after 30 minutes, rinse out nose with saline spray.. Use opposite hand per nostril to spray in the nasal steroid allergy spray. 01/12/2019 Appointment: Fay Dave WPtel: [id number] [id number] (30 min) Complex 01/12/2019 Patient Education: Patient Medication Summary Completed 01/12/2019 Visit Plan: Sinusitis - Pt has acut e infection - pain in face, maxillary region, Pt informed to use decongestant, RX given to patient, sinus rinses also recommended. Call if symptoms do not show improvement. rx for sonia and bactrim Generalized anxiety/depression - rx for refill on lexapro sent to pharmacy 12/29/2018 Appointment: Sveta Crandall WPtel: [facility]5 [id number] (15 min) Moderate 12/29/2018 Patient Education: Patient Medication Summary Completed 12/29/2018 Visit Plan: Chronic Anxiety - the p t has symptoms of chronic anxiety and depression that have been fairly well controlled since the last office visit. The pt has expected periods of exacerbation with abatement of the symptoms with change in situational exposure. No change in current medications. 09/20/2018 Appointment: Sveta Crandall WPtel: [facility]6 [id number] (15 min) Moderate 09/20/2018 Patient Education: Patient Medication Summary Completed 09/20/2018 Visit Plan: Anxiety and Depression - the pt has symptoms have been fairly well controlled since the last office visit. The pt has expected periods of exacerbation with abatement of the symptoms with change in situa tional exposure. No change in current medications. 06/09/2018 Appointment: Sveta Crandall WPtel: [facility]6 [id number] (15 min) Moderate 06/09/2018 Patient Education: Patient Medication Summary Completed 06/09/2018 Visit Plan: Well Adult - pt was cou nseled about diet, exercise, and encouraged to follow a heart healthy diet and increase activity level. The patient was instructed to RTC yearly for well adult exams and PRN for acute illnesses. The pt was also instructed to have yearly labs for check of cholesterol, thyroid, chem panel, CBC, and renal functioning. Anxiety and situational depression - recommendation for pt to start on lexapro. 05/03/2018 Appointment: Sveta Crandall WPtel: [id number] [id number] (15 min) Moderate 05/03/2018 Patient Education: Patient Medication Summary Completed 05/03/2018 Care Plan: Comp Metabolic Pending 05/03/2018 Care Plan: Cbc With Differential Pending 05/03/2018 Care Plan: Tsh Pending 05/03/2018 Care Plan: Lipid Pending 05/03/2018 Visit Plan: Cellulitis-left great t oenail-start oral antibiotics as directed, return to clinic as previously directed, call for acute change in symptoms, worsening redness, warmth, discharge. Eczema bilateral feet- rx for betamethasone cream provided and instructed on use-return if rash does not completely resolve-keep feet clean/dry and avoid excessive moisture Insomnia-Rx for ambien provided and instructed on use-take as needed only- patient verbalized understanding of plan. 03/26/2017 Appointment: Alise Collins WPtel: [phone] [id number] [place] [address] (15 min) Moderate 03/26/2017 Patient Education: Patient Medication Summary Completed 03/26/2017 Visit Plan: Cough-recent bronchitis -symptoms improving- recommend patient take sonia daily-monitor symptoms and call if they do not completely resolve or if any worse. Patient verbalized understanding of plan. 11/28/2016 Patient Education: Patient Medication Summary Completed 11/28/2016 Visit Plan: URI - Pt advised to inc rease fluids, vitamin C. Discussed natural and expected course of this diagnosis and need to alert me if symptoms do not follow expected course, or if any worse. RX sent to patient's pharmacy. Bronchitis - acute case of bronchitis identified. Pt has been given antibiotics, breathing treatments as appropriate, and pt has been instructed to call if symptoms are not improved, or if symptoms acutely worsen. 11/18/2016 Visit Plan: URI - Pt advised to inc rease fluids, vitamin C. Discussed natural and expected course of this diagnosis and need to alert me if symptoms do not follow expected course, or if any worse. RX sent to patient's pharmacy. Bronchitis - acute case of bronchitis identified. Pt has been given antibiotics, breathing treatments as appropriate, and pt has been instructed to call if symptoms are not improved, or if symptoms acutely worsen. 11/18/2016 Appointment: Fay Dave WPtel: [facility]5 [facility] (30 min) Complex 11/18/2016 Patient Education: Patient Medication Summary Completed 11/18/2016 Visit Plan: Anxiety - pt did not st art on mirtazapine - pt to use propranolol for his situational anxiety - klonopin for his anxiety/insomina - call if not improved. 05/06/2016 Patient Education: Patient Medication Summary Completed 05/06/2016 Patient Education: Obesity Completed 05/06/2016 Visit Plan: Anxiety - the patient h as uncontrolled anxiety and will benefit from an SSRI on a daily basis to attempt control of the symptoms of anxiety (tachycardia, overwhelming sensations, stress, insomnia, et c). I also believe that the patient will benefit from very low dose of prn benzodiazepine. Pt is aware of the risks and benefits of treatment with the above medications. 04/21/2016 Patient Education: Patient Medication Summary Completed 04/21/2016 Patient Education: Obesity Completed 04/21/2016 Visit Plan: Chronic anxiety - the p t has symptoms of chronic anxiety that has been fairly well controlled since the last office visit. The pt has expected periods of exacerbation with abatement of the symptoms with change in situational exposure. No change in current medications. 08/29/2015 Appointment: Sveta Crandall WPtel: [address] [place], [place] [id number] (15 min) Moderate 08/29/2015 Patient Education: Patient Medication Summary Completed 08/29/2015 Appointment: Sveta Crandall WPtel: [address] [place] [address] (15 min) Moderate 07/31/2015 Appointment: Sveta Crandall WPtel: [facility] (15 min) Moderate 07/05/2015 Visit Plan: Well Adult - pt was cou nseled about diet, exercise, and encouraged to follow a heart healthy diet and increase activity level. The patient was instructed to RTC yearly for well adult exams and PRN for acute illnesses. The pt was also instructed to have yearly labs for check of cholesterol, thyroid, chem panel, CBC, and renal functioning. Anxiety - the patient has uncontrolled anxiety and will benefit from an SSRI on a daily basis to attempt control of the symptoms of anxiety (tachycardia, overwhelming sensations, stress, insomnia, etc). Pt is aware of the risks and benefits of treatment with the above medications. 05/11/2015 Appointment: New Patient 05/11/2015 Patient Education: Patient Medication Summary Completed 05/11/2015 Instructions Comment . Cough-recent [facility] hitis-symptoms improving-recommend patient take sonia daily-monitor symptoms and call if they do not completely resolve or if any worse. Patient verbalized understanding of plan. . Chronic anxiety - the pt has symptoms of chronic anxiety that has been fairly well controlled since the last office visit. The pt has expected periods of exacerbation with abatement of the symptoms with change in situational exposure. No change in current medications. . ongoing Cellulitis - will check labs and treat as indicated - continue with oral antibiotics as previously directed, return to clinic as previously directed, call for acute change in symptoms, worsening redness, warmth, discharge. over the counter pep román AC 20mg twice daily x 1 week then decrease to daily x 1 month then as needed. . Well Adult - pt was counseled about di et, exercise, and encouraged to follow a heart healthy diet and increase activity level. The patient was instructed to RTC yearly for well adult exams and PRN for acute illnesses. The pt was also instructed to have yearly labs for check of cholesterol, thyroid, chem panel, CBC, and renal functioning. Anxiety and situational depression - recommendation for pt to start on lexapro. Steroid shot and ant ibiotic shot today prednisone taper - start tomorrow if needed - long taper - 60mg x 2 days, then 50mg x 2 days, then 40mg x 2 days, then 30mg x 2 days, then 20mg x 2 days, then 10mg x 2 days, then 5mg every other day x 2 doses. levaquin antibiotic (its the same category as cipro) breathing treatments 4 times a day x 2 days, then 3 times a day x 2 days, then twice a day x 2 days, then as needed singulair for allergies take at night if you are not getting any better then we will refer you to Dr. Juárez. Bronchitis - acute case of bronchitis identified. Pt has been given antibiotics, breathing treatments as appropriate, and pt has been instructed to call if symptoms are not improved, or if symptoms acutely worsen. URI - Pt advised to increase fluids, vitamin C. Discussed natural and expected course of this diagnosis and need to alert me if symptoms do not follow expected course, or if any worse. RX sent to patient's pharmacy. Allergies - chronic - recommended pt to use allergy medication as prescribed. Pt has been counseled as to the appropriate use of the medication. Pt to call if allergy symptoms are not controlled with the medication. If using nasal spray, instructions as follows: Nasal spray- use twice daily, one spray per nostril twice daily, after 30 minutes, rinse out nose with saline spray.. Use opposite hand per nostril to spray in the nasal steroid allergy spray. . Sinusitis - Pt has acute infection - pain in face, maxillary region, Pt informed to use decongestant, RX given to patient, sinus rinses also recommended. Call if symptoms do not show improvement. rx for sonia and bactrim Generalized anxiety/depression - rx for refill on lexapro sent to pharmacy . Anxiety - the zain ent has uncontrolled anxiety and will benefit from an SSRI on a daily basis to attempt control of the symptoms of anxiety (tachycardia, overwhelming sensations, stress, insomnia, etc). I also believe that the patient will benefit from very low dose of prn benzodiazepine. Pt is aware of the risks and benefits of treatment with the above medications. Steroid shot today i n the office Z-pack (antibiotic) start today - 2 pills day 1 and 1 pill day 2-5 Prednisone (steroid pills) - start tomorrow if still wheezing, congested, etc. Increase fluids Breathing treatments as needed . URI - Pt advised to increase fluids, v itamin C. Discussed natural and expected course of this diagnosis and need to alert me if symptoms do not follow expected course, or if any worse. RX sent to patient's pharmacy. Bronchitis - acute case of bronchitis identified. Pt has been given antibiotics, breathing treatments as appropriate, and pt has been instructed to call if symptoms are not improved, or if symptoms acutely worsen. Steroid shot today i n the office Z-pack (antibiotic) start today - 2 pills day 1 and 1 pill day 2-5 Prednisone (steroid pills) - start tomorrow if still wheezing, congested, etc. Increase fluids Breathing treatments as needed . URI - Pt advised to increase fluids, v itamin C. Discussed natural and expected course of this diagnosis and need to alert me if symptoms do not follow expected course, or if any worse. RX sent to patient's pharmacy. Bronchitis - acute case of bronchitis identified. Pt has been given antibiotics, breathing treatments as appropriate, and pt has been instructed to call if symptoms are not improved, or if symptoms acutely worsen. . Cellulitis-left gr eat toenail-start oral antibiotics as directed, return to clinic as previously directed, call for acute change in symptoms, worsening redness, warmth, discharge. Eczema bilateral feet-rx for betamethasone cream provided and instructed on use- return if rash does not completely resolve-keep feet clean/dry and avoid excessive moisture Insomnia-Rx for ambien provided and instructed on use-take as needed only- patient verbalized understanding of plan. . Sinusitis - Pt has acute infection - pain in face, maxillary region, Pt informed to use decongestant, RX given to patient, sinus rinses also recommended. Call if symptoms do not show improvement. decadron nasal spray at [facility] - if not improvement in one week - then ct scan of sinuses. cologuard . Cellulitis - amandeep nue with oral antibiotics as previously directed, return to clinic as previously directed, call for acute change in symptoms, worsening redness, warmth, discharge. . Superficial thromb ophlebitis -patient sent for venous doppler to r/o DVT -start full strength aspirin daily -rx for keflex provided and instructed on use- patient verbalized understanding of plan. Cough-residual from recent illness- start PPI daily -continue allergy medication and let us know if cough does not resolve or if any worse. ADDENDUM: Doctor's eval of the patient - I, Dr. Crandall, personally evaluated the patient with the nurse practitioner. I have reviewed the patient's chart, I have reviewed the patient's past medical history, problem list, medication list, and personal history. I agree with the documentation by the nurse practitioner in the HPI, physical exam, and the assessment and plan. VENOUS DOPPLER RIGHT LOWER EXTREMITY KEFLEX 500MG THREE TIMES PER DAY ASPIIRIN 325MG DAILY CONTINUE PRILOSEC DAILY . Superficial thrombophlebitis -patient sent for venous doppler to r/o DVT - start full strength aspirin daily -rx for keflex provided and instructed on use- patient verbalized understanding of plan. Cough-residual from recent illness- start PPI daily -continue allergy medication and let us know if cough does not resolve or if any worse. . Anxiety - pt did n ot start on mirtazapine - pt to use propranolol for his situational anxiety - klonopin for his anxiety/insomina - call if not improved. . Anxiety and Depres malathi - the pt has symptoms have been fairly well controlled since the last office visit. The pt has expected periods of exacerbation with abatement of the symptoms with change in situational exposure. No change in current medications. . Chronic Anxiety - the pt has symptoms of chronic anxiety and depression that have been fairly well controlled since the last office visit. The pt has expected periods of exacerbation with abatement of the symptoms with change in situational exposure. No change in current medications. . Well Adult - pt wa s counseled about diet, exercise, and encouraged to follow a heart healthy diet and increase activity level. The patient was instructed to RTC yearly for well adult exams and PRN for acute illnesses. The pt was also instructed to have yearly labs for check of cholesterol, thyroid, chem panel, CBC, and renal functioning. Anxiety - the patient has uncontrolled anxiety and will benefit from an SSRI on a daily basis to attempt control of the symptoms of anxiety (tachycardia, overwhelming sensations, stress, insomnia, etc). Pt is aware of the risks and benefits of treatment with the above medications.
--- OUTSIDE RECORDS SUMMARY | 2020-06-10 16:19 | XMS REPORT | CCD ---
Author Author Aldair Collins Organization [facility] Address [address] [place] [address] Phone Care Team Providers Care Pre Billing Specialist Name Role Phone PP Unavailable CCM Unavailable Summary Purpose Interface Exchange Insurance Providers Payer name Policy type / Coverage type Covered alliance party ID Effective Begin Date Effective End Date Blue Cross Blue Shield [facility] Donovan e Cross/Blue Shield [id number] Unknown Unk nown Family history Father Diagnosis Age At Onset Hypertension Unknown Mother Diagnosis Age At Onset alcohol dependence Unknown Skin cancer Unknown Cancer Unknown Depression Unknown Social History Social History Element Codes Description Effective Dates Marital status Unknown M daniela Coello 05/03/2018 Number of children Unknown 2 05/11/[address]: 735203979 Never smoker 05/11/2015 Alcohol history Unknown occasionally [...] Date Stop Date Sta tus Fill Instructions doxycycline hyclate 100 mg capsule RxNorm: 4885400 1 Capsule(s) PO BID 06/15/2019 06/24/2019 Ac tive Keflex 500 mg capsule RxNorm: 453465 1 Capsule(s) PO TID 06/03/2019 06/09/2019 Inactive Lexapro 10 mg tablet RxNorm: 332648 1 Tablet(s) PO QHS 03/22/2019 03/15/2020 Active Keflex 500 mg capsule RxNorm: 968420 1 Capsule(s) PO TID 02/10/2019 02/19/2019 Inactive Kenalog 40 mg/mL luis pension for injection RxNorm: 0882087 Milliliter(s) Inj 01/12/2019 01/12/2019 In active Levaquin 500 mg tablet RxNorm: 162497 1 Tablet(s) PO daily 01/12/2019 01/18/2019 Inactive prednisone 10 mg tablet RxNorm: 463933 Tablet(s) PO 01/12/2019 03/21/2019 Inactive 60mg x 2 days, then 50mg x 2 days, then 40mg x 2 days, then 30mg x 2 days, then 20mg x 2 days, then 10mg x 2 days, then 5mg every other day x 2 doses. Singulair 10 mg tablet RxNorm: 711518 1 Tablet(s) PO QHS 01/12/2019 02/10/2019 Inactive ceftriaxone 500 mg s olution for injection RxNorm: 9466569 Inj 01/12/2019 01/12/2019 Inactive Sonia-D 12 Hour 60 mg-120 mg tablet,extended release RxNorm: 534528 1 Tablet(s) PO daily 12/29/2018 01/27/2019 Inactive Lexapro 10 mg tablet RxNorm: 837543 1.5 Tablet(s) PO QHS 12/29/2018 03/21/2019 Inactive Bactrim DS 800 mg-16 0 mg tablet RxNorm: 208357 1 Tablet(s) PO BID 12/29/2018 01/07/2019 Inactive Symbicort 160 mcg-4. 5 mcg/actuation HFA aerosol inhaler RxNorm: 5931077 2 Puff(s) INH BID 12/28/2018 No Stop Date Active Xanax 0.25 mg tablet RxNorm: 937326 1 Tablet(s) PO TID as needed anxiety 11/25/2018 01/23/2019 In active Lexapro 10 mg tablet RxNorm: 349697 1.5 Tablet(s) PO QHS 11/23/2018 12/28/2018 Inactive propranolol 40 mg ta blet RxNorm: 135335 Tablet(s) TAKE 1 TABL ET BY MOUTH PRIOR TO EVENT NEEDED 09/20/2018 12/08/2018 Inactive Lexapro 10 mg tablet RxNorm: 652847 1 Tablet(s) PO QHS 08/30/2018 11/22/2018 Inactive Lexapro 10 mg tablet RxNorm: 540929 1 Tablet(s) PO QHS 05/03/2018 08/29/2018 Inactive cyclobenzaprine 5 mg tablet RxNorm: 469452 1 Tablet(s) PO TID as needed 01/05/2018 01/09/2018 In active cyclobenzaprine 5 mg tablet RxNorm: 709494 1 Tablet(s) PO TID as needed 01/05/2018 01/04/2018 In active propranolol 40 mg ta blet RxNorm: 251994 TAKE 1 TABLET BY MOUT H PRIOR TO EVENT NEEDED 07/24/2017 10/11/2017 Inactive Generic For:INDERAL 40 MG TABLET 2016 9:51:34 AM Prozac 10 mg capsule RxNorm: 061129 1 Capsule(s) PO daily may increase after a few weeks if needed 04/09/2017 04/08/2017 Inactive Pt to call if he wants dose increased Prozac 10 mg capsule RxNorm: 355211 1 Capsule(s) PO daily may increase after a few weeks if needed 04/09/2017 05/02/2018 Inactive Pt to call if he wants dose increased Ambien 10 mg tablet RxNorm: 600168 1 Tablet(s) PO HS PRN 03/26/2017 05/02/2018 Inactive betamethasone johnny te 0.1 % topical cream RxNorm: 008515 1 Application TOP BID 03/26/2017 04/08/2017 In active Keflex 500 mg capsule RxNorm: 967984 1 Capsule(s) PO TID 03/26/2017 04/01/2017 Inactive Klonopin 0.5 mg tablet RxNorm: 787949 Tablet(s) TAKE 1 TABLET BY MOUTH EVERY 8 HOURS NEEDED 01/28/2017 06/02/2019 Inactive prednisone 10 mg tablet RxNorm: 542014 Tablet(s) PO UD 11/18/2016 05/02/2018 Inactive 6,5,4,3,2,1 Zithromax Z-Kevin 250 mg tablet RxNorm: 494439 1 Tablet(s) PO UD 11/18/2016 01/27/2017 Inactive 1 zpack Klonopin 0.5 mg tablet RxNorm: 059555 Tablet(s) TAKE 1 TABLET BY MOUTH EVERY 8 HOURS NEEDED 07/09/2016 08/05/2016 Inactive Generic For:KLONOPIN 0.5 MG TABLET N O T I C E PRESCRIPTION PREVIOUSLY AUTHORIZED BY DOCTOR:JULES DELANEY [phone] mirtazapine 7.5 mg t ablet RxNorm: 683332 1 Tablet(s) PO QHS 07/04/2016 04/08/2017 Inactive Belsomra 10 mg tablet RxNorm: 5161172 1 Tablet(s) PO QHS 05/30/2016 05/29/2016 Inactive Belsomra 10 mg tablet RxNorm: 1239538 1 Tablet(s) PO QHS as needed 05/30/2016 03/25/2017 In active propranolol 40 mg ta blet RxNorm: 531584 Tablet(s) 1 - 1.5 Tab let(s) PO prior to event as needed 05/06/2016 07/23/2017 Inactive mirtazapine 15 mg ta blet RxNorm: 692661 1 Tablet(s) PO QHS 04/30/2016 05/29/2016 Inactive amitriptyline 25 mg tablet RxNorm: 733848 1 Tablet(s) PO QPM 04/21/2016 04/29/2016 Inactive propranolol 40 mg ta blet RxNorm: 921062 1 Tablet(s) PO prior to event as needed 04/10/2016 05/05/2016 In active Klonopin 0.5 mg tablet RxNorm: 186551 Tablet(s) TAKE 1 TABLET BY MOUTH EVERY 8 HOURS NEEDED 02/29/2016 03/18/2016 Inactive Generic For:KLONOPIN 0.5 MG TABLET N O T I C E PRESCRIPTION PREVIOUSLY AUTHORIZED BY DOCTOR:JULES DELANEY [phone] Sonia-D 24 Hour 18 0 mg-240 mg tablet,extended release RxNorm: 787917 1 Tablet(s) PO daily 01/21/2016 01/20/2016 Inactive Sonia-D 24 Hour 18 0 mg-240 mg tablet,extended release RxNorm: 843155 1 Tablet(s) PO daily 01/21/2016 12/28/2018 Inactive propranolol 40 mg ta blet RxNorm: 126318 1 Tablet(s) PO prior to event as needed 11/20/2015 04/09/2016 In active Zithromax Z-Kevin 250 mg tablet RxNorm: 681315 1 Tablet(s) PO UD 10/19/2015 05/05/2016 Inactive 1 zpack Klonopin 0.5 mg tablet RxNorm: 103374 Tablet(s) TAKE 1 TABLET BY MOUTH EVERY 8 HOURS NEEDED 07/17/2015 08/04/2015 Inactive Generic For:KLONOPIN 0.5 MG TABLET N O T I C E PRESCRIPTION PREVIOUSLY AUTHORIZED BY DOCTOR:JULES DELANEY [phone] Klonopin 0.5 mg tablet RxNorm: 681831 Tablet(s) TAKE 1 TABLET BY MOUTH EVERY 8 HOURS NEEDED 07/17/2015 07/16/2015 Inactive Generic For:KLONOPIN 0.5 MG TABLET N O T I C E PRESCRIPTION PREVIOUSLY AUTHORIZED BY DOCTOR:JULES DELANEY Klonopin 0.5 mg tablet RxNorm: 964194 TAKE 1 TABLET BY MOUTH EVERY 8 HOURS NEEDED 07/16/2015 07/16/2015 Inactive Generic For:KLONOPIN 0.5 MG TABLET N O T I C E PRESCRIPTION PREVIOUSLY AUTHORIZED BY DOCTOR:JULES DELANEY Lexapro 10 mg tablet RxNorm: 720802 1 Tablet(s) PO daily 05/11/2015 08/28/2015 Inactive propranolol 40 mg ta blet RxNorm: 841393 1 Tablet(s) PO prior to john n No Start Date 11/19/2015 Inactive Zithromax Z-Kevin 250 mg tablet RxNorm: 329946 1 Tablet(s) PO UD No Start Date 10/18/2015 Inactive 1 zpack Klonopin 0.5 mg tablet RxNorm: 181460 Tablet(s) PO as needed No Start Date 07/17/2015 Inactive Symbicort 160 mcg-4. 5 mcg/actuation HFA aerosol inhaler RxNorm: 5019275 2 Puff(s) INH BID No Start Date 12/27/2018 Inactive Medication Administered Medication Codes Instruc tions Start Date Status Kenalog 40 mg/mL suspension for injection RxNorm: 9734280 Milliliter 01/12/2019 No longer Active ceftriaxone 500 mg solution for injection RxNorm: 2351345 01/12/2019 No longer A ctive Immunizations Vaccine [...] Gastrointestinal No abdominal pain 06/09/2018 Psychiatric anxiety 06/2018 Psychiatric No depression 06/09/2018 Constitutional No [...] No alteration of consciousness 05/03/2018 Psychiatric anxiety 0712/2017 Constitutional recent illness 03/26/2017 Constitutional No anorexia [...] time 03/22/2019 None Full Exam - General 1995 Abdomen abdominal exam Overall: no tenderness 03/22/2019 [...] 1: 134/82 Code: 8480-6 BMI: 32.7 Code: 40672-1 Heart Rate 1: 114 bpm Height: 6'7" SpO2: 97% Weight: 290 lbs 06/03/2019 Blood Pressure 1: 138/72 Code: 8480-6 Heart Rate 1: 90 bpm Height: 6'7" SpO2: 96% Weight: 03/22/2019 Blood Pressure 1: 140/86 Code: 8480-6 BMI: 30.9 Code: 56811-5 Heart Rate 1: 94 bpm Height: 6'7" SpO2: 95% Weight: 274 lbs 6 oz 02/10/2019 Blood Pressure 1: 154/110 Code: 8480-6 Blood Pressure 1: 142/88 Code: 8480-6 BMI: 30.1 Code: 43838-0 Heart Rate 1: 84 bpm Height: 6'7" Height: SpO2: 98% Weight: 267 lbs Weight: 01/12/2019 Blood Pressure 1: 144/78 Code: 8480-6 BMI: 30.1 Code: 89585-9 Heart Rate 1: 102 bpm Height: 6'7" SpO2: 98% Weight: 267 lbs 12/29/2018 Blood Pressure 1: 138/88 Code: 8480-6 BMI: 30.1 Code: 62399-3 Heart Rate 1: 89 bpm Height: 6'7" SpO2: 98% Temperature: 36.5 (C ) / 97.7 (F) Weight: 267 lbs 09/20/2018 Blood Pressure 1: 132/80 Code: 8480-6 BMI: 29.5 Code: 57071-6 Heart Rate 1: 96 bpm Height: 6'7" SpO2: 98% Weight: 262 lbs 06/09/2018 Blood Pressure 1: 142/84 Code: 8480-6 BMI: 29.7 Code: 70623-4 Heart Rate 1: 89 bpm Height: 6'7" SpO2: 96% Weight: 264 lbs 05/03/2018 Blood Pressure 1: 150/78 Code: 8480-6 BMI: 28.8 Code: 39665-3 Heart Rate 1: 96 bpm Height: 6'7" SpO2: 97% Weight: 256 lbs 03/26/2017 Blood Pressure 1: 146/84 Code: 8480-6 BMI: 29.1 Code: 63754-7 Heart Rate 1: 87 bpm Height: 6'7" SpO2: 97% Weight: 258 lbs 11/28/2016 Blood Pressure 1: 136/68 Code: 8480-6 BMI: 28.8 Code: 72602-1 Heart Rate 1: 76 bpm Height: 6'7" SpO2: 97% Weight: 256 lbs 11/18/2016 Blood Pressure 1: 132/76 Code: 8480-6 BMI: 28.8 Code: 80433-8 Heart Rate 1: 97 bpm Height: 6'7" SpO2: 98% Temperature: 37.3 (C ) / 99.2 (F) Weight: 256 lbs 05/06/2016 Blood Pressure 1: 140/92 Code: 8480-6 BMI: 27.7 Code: 47101-9 Heart Rate 1: 103 bpm Height: 6'7" SpO2: 98% Weight: 246 lbs 04/21/2016 Blood Pressure 1: 152/80 Code: 8480-6 BMI: 28.1 Code: 94223-8 Heart Rate 1: 97 bpm Height: 6'7" SpO2: 98% Weight: 249 lbs 08/29/2015 Blood Pressure 1: 120/80 Code: 8480-6 BMI: 26.9 Code: 65942-8 Height: 6'7" Weight: 239 lbs 05/11/2015 Blood Pressure 1: 132/80 Code: 8480-6 Blood Pressure 2: 122/80 Code: 8480-6 BMI: 27.0 Code: 51936-6 Heart Rate 1: 92 bpm Height: 6'7" [...] Encounters Encounter Performer Loca tion Codes Date [id number] EST. PATIENT, LEVEL III Diagnosis: Pain in left toe(s)[ICD10: M79.675] Diagnosis: Cellulitis of left toe[ICD10: L03.032] Fay Crandall MD, [facility] CPT-4: 70198 06/15/2019 [id number] EST. PATIENT, LEVEL II Diagnosis: Cellulitis of left toe[ICD10: L03.032] Alise Cr[facility]all MD, [facility] CPT-4: 22326 06/03/2019 ([id number]) 28224 EST. [facility], [facility] Diagnosis: Acute recurrent maxillary sinusitis[ICD10: J01.01] Diagnosis: Generalized anxiety disorder[ICD10: F41.1] S[facility]eta Cr[facility]all MD, [facility] CPT-4: 91379 03/22/2019 ([id number]) 71462 EST. [facility], L[facility] Diagnosis: Phlebitis and thrombophlebitis of superficial vessels of right lower extremity[ICD10: I80.01] Diagnosis: Effusion, right foot[ICD10: M25.474] Diagnosis: Cough[ICD10: R05] Diagnosis: Other allergic rhinitis[ICD10: J30.89] [facility]eta [facility] MD, [facility] CPT-4: 10649 02/10/2019 [id number] EST. PATIENT, LEVEL IV Diagnosis: Acute bronchitis due to other specified organisms[ICD10: J20.8] Diagnosis: Acute laryngopharyngitis[ICD10: J06.0] Diagnosis: Other allergic rhinitis[ICD10: J30.89] Fay Crandall MD, [facility] CPT-4: 20230 01/12/2019 ([id number]) 07711 EST. [facility] L[facility] Diagnosis: Acute laryngopharyngitis[ICD10: J06.0] Diagnosis: Acute recurrent maxillary sinusitis[ICD10: J01.01] Diagnosis: Cough[ICD10: R05] Diagnosis: Generalized anxiety disorder[ICD10: F41.1] S[facility]eta [facility]all MD, [facility] CPT-4: 40997 12/29/2018 ([id number]) 02652 EST. P ATIENT, LEVEL III Diagnosis: Generalized anxiety disorder[ICD10: F41.1] S[facility]eta [facility]all MD, [facility] CPT-4: 32989 09/20/2018 ([id number]) 81122 EST. P ATIENT, LEVEL III Diagnosis: Generalized anxiety disorder[ICD10: F41.1] S[facility]eta Cr[facility]all MD, [facility] CPT-4: 39746 06/09/2018 ([id number]) PREV VISIT E ST AGE 40-64 Diagnosis: Encounter for general adult medical examination without abnormal findings[ICD10: Z00.00] Sveta Cr[facility]all MD, [facility] CPT-4: 99916 05/03/2018 ([id number]) 06026 EST. P ATIENT, LEVEL III Diagnosis: Cellulitis of left toe[ICD10: L03.032] Diagnosis: Adjustment insomnia[ICD10: F51.02] Diagnosis: Dermatitis, unspecified[ICD10: L30.9] Alise Crandall MD, [facility] CPT-4: 91142 03/26/2017 ([id number]) 75457 EST. P ATIENT, LEVEL III Diagnosis: Cough[ICD10: R05] Alise Crandall MD, [facility] CPT-4: 55208 11/28/2016 [id number] EST. PATIENT, LEVEL III Diagnosis: Acute laryngopharyngitis[ICD10: J06.0] Diagnosis: Acute bronchitis due to other specified organisms[ICD10: J20.8] Fay Crandall MD, [facility] CPT-4: 69488 11/18/2016 ([id number]) 88707 EST. P ATIENT, LEVEL III Diagnosis: Generalized anxiety disorder[ICD10: F41.1] Sveta Crandall MD, [facility] CPT-4: 07364 05/06/2016 ([id number]) 53047 EST. P ATIENT, LEVEL III Diagnosis: Generalized anxiety disorder[ICD10: F41.1] Sveta Crandall MD, [facility] CPT-4: 83050 04/21/2016 ([id number] EST. P ATIENT, LEVEL III Diagnosis: Generalized anxiety disorder[ICD10: F41.1] [facility], [facility] CPT-4: 19489 08/29/2015 ([id number]) PREV VISIT E ST AGE 40-64 Diagnosis: Well adult exam[ICD9: V70.0] Diagnosis: Anxiety[ICD9: 300.00] Alise Crandall MD, [facility] CPT-4: 27968 05/11/2015 Plan of Care Planned Activity Notes C odes Status Date Visit Plan: ongoing Cellulitis - wi check labs and treat as indicated - continue with oral antibiotics as previously directed, return to clinic as previously directed, call for acute change in symptoms, worsening redness, warmth, discharge. 06/15/2019 Appointment: Fay Dave WPtel: [facility] (15 min) Moderate 06/15/2019 Patient Education: Patient Medication Summary Completed 06/15/2019 Care Plan: Cbc With Differential Pending 06/15/2019 Care Plan: Uric Acid Pending 06/15/2019 Visit Plan: Cellulitis - continue w ith oral antibiotics as previously directed, return to clinic as previously directed, call for acute change in symptoms, worsening redness, warmth, discharge. 06/03/2019 Appointment: Alise Collins WPtel[phone] (15 min) Moderate 06/03/2019 Patient Education: Patient Medication Summary Completed 06/03/2019 Visit Plan: Sinusitis - Pt has acut e infection - pain in face, maxillary region, Pt informed to use decongestant, RX given to patient, sinus rinses also recommended. Call if symptoms do not show improvement. decadr on nasal spray at [facility] - if not improvement in one week - then ct scan of sinuses. [email or web address] 03/22/2019 Appointment: [facility]el[facility] (15 min) Moderate 03/22/2019 Patient Education: Patient [...] any worse. 02/10/2019 Appointment: Alise Collins WPtel: [phone] (30 min) Complex 02/10/2019 Patient Education: Patient [...] allergy spray. 01/12/2019 Appointment: Fay Dave WPtel: [facility] [place] (30 min) Complex 01/12/2019 Patient Education: Patient [...] to pharmacy 12/29/2018 Appointment: [phone] [facility] (15 min) Moderate 12/29/2018 Patient Education: Patient [...] current medications. 09/20/2018 Appointment: [facility]Ptel[facility] (15 min) Moderate 09/20/2018 Patient Education: Patient Medication Summary Completed 09/20/2018 Visit Plan: Anxiety and Depression - the pt has symptoms have been fairly well controlled since the last office visit. The pt has expected periods of exacerbation with abatement of the symptoms with change in situa tional exposure. No change in current medications. 06/09/2018 Appointment: [facility]all WPtel[facility] [place] (15 min) Moderate 06/09/2018 Patient Education: Patient [...] on lexapro. 05/03/2018 Appointment: [phone] [facility] (15 min) Moderate 05/03/2018 Patient Education: Patient [...] of plan. 03/26/2017 Appointment: Alise Collins WPtel: [phone] [phone] (15 min) Moderate 03/26/2017 Patient Education: Patient Medication Summary Completed 03/26/2017 Visit Plan: Cough-recent bronchitis -symptoms improving- recommend patient take sonai daily-monitor symptoms and call if they do [...] acutely worsen. 11/18/2016 Appointment: Fay Dave WPtel: [phone] [facility] (30 min) Complex 11/18/2016 Patient Education: Patient [...] current medications. 08/29/2015 Appointment: Sveta Crandall WPtel: [facility] (15 min) Moderate 08/29/2015 Patient Education: Patient Medication Summary Completed 08/29/2015 Appointment: Sveta Crandall WPtel: [facility] (15 min) Moderate 07/31/2015 Appointment: Sveta Crandall WPtel: [facility] (15 min) Moderate 07/05/2015 Visit Plan: Well [...] Summary Completed 05/11/2015 Instructions Comment . Cough-recent [facility]-symptoms improving-recommend patient take sonia daily-monitor symptoms [...] not show improvement. decadron nasal spray at [facility] - if not improvement in one week [...]
--- OUTSIDE RECORDS SUMMARY | 2020-06-10 16:19 | XMS REPORT | CCD ---
Author Author Aldair Collins Organization [facility] Address [address] [place] [address] Phone Care Team Providers Care Vehicle Modification Technician Name Role Phone PP Unavailable CCM Unavailable Summary Purpose Interface Exchange Insurance Providers Payer name Policy type / Coverage type Covered republican ID Effective Begin Date Effective End Date Blue Cross Blue Shield [facility] Donovan e Cross/Blue Shield [id number] Unknown Unk nown Family history Father Diagnosis Age At Onset Hypertension Unknown Mother Diagnosis Age At Onset alcohol dependence Unknown Skin cancer Unknown Cancer Unknown Depression Unknown Social History Social History Element Codes Description Effective Dates Marital status Unknown M daniela Coello 05/03/2018 Number of children Unknown 2 05/11/[address]: 420467635 Never smoker 05/11/2015 Alcohol history Unknown occasionally [...] Instructions doxycycline hyclate 100 mg capsule RxNorm: 8447036 1 Capsule(s) PO BID 06/15/2019 06/24/2019 Ac tive Keflex 500 mg capsule RxNorm: 061492 1 Capsule(s) PO TID 06/03/2019 06/09/2019 Inactive Lexapro 10 mg tablet RxNorm: 778794 1 Tablet(s) PO QHS 03/22/2019 03/15/2020 Active Keflex 500 mg capsule RxNorm: 484066 1 Capsule(s) PO TID 02/10/2019 02/19/2019 Inactive Kenalog 40 mg/mL luis pension for injection RxNorm: 8805048 Milliliter(s) Inj 01/12/2019 01/12/2019 In active Levaquin 500 mg tablet RxNorm: 793651 1 Tablet(s) PO daily 01/12/2019 01/18/2019 Inactive prednisone 10 mg tablet RxNorm: 360391 Tablet(s) PO 01/12/2019 03/21/2019 Inactive 60mg x 2 days, then 50mg x 2 days, then 40mg x 2 days, then 30mg x 2 days, then 20mg x 2 days, then 10mg x 2 days, then 5mg every other day x 2 doses. Singulair 10 mg tablet RxNorm: 664589 1 Tablet(s) PO QHS 01/12/2019 02/10/2019 Inactive ceftriaxone 500 mg s olution for injection RxNorm: 1787588 Inj 01/12/2019 01/12/2019 Inactive Sonia-D 12 Hour 60 mg-120 mg tablet,extended release RxNorm: 838590 1 Tablet(s) PO daily 12/29/2018 01/27/2019 Inactive Lexapro 10 mg tablet RxNorm: 448132 1.5 Tablet(s) PO QHS 12/29/2018 03/21/2019 Inactive Bactrim DS 800 mg-16 0 mg tablet RxNorm: 535269 1 Tablet(s) PO BID 12/29/2018 01/07/2019 Inactive Symbicort 160 mcg-4. 5 mcg/actuation HFA aerosol inhaler RxNorm: 1497137 2 Puff(s) INH BID 12/28/2018 No Stop Date Active Xanax 0.25 mg tablet RxNorm: 206008 1 Tablet(s) PO TID as needed anxiety 11/25/2018 01/23/2019 In active Lexapro 10 mg tablet RxNorm: 020658 1.5 Tablet(s) PO QHS 11/23/2018 12/28/2018 Inactive propranolol 40 mg ta blet RxNorm: 816221 Tablet(s) TAKE 1 TABL ET BY MOUTH PRIOR TO EVENT NEEDED 09/20/2018 12/08/2018 Inactive Lexapro 10 mg tablet RxNorm: 456373 1 Tablet(s) PO QHS 08/30/2018 11/22/2018 Inactive Lexapro 10 mg tablet RxNorm: 004767 1 Tablet(s) PO QHS 05/03/2018 08/29/2018 Inactive cyclobenzaprine 5 mg tablet RxNorm: 640289 1 Tablet(s) PO TID as needed 01/05/2018 01/09/2018 In active cyclobenzaprine 5 mg tablet RxNorm: 408068 1 Tablet(s) PO TID as needed 01/05/2018 01/04/2018 In active propranolol 40 mg ta blet RxNorm: 466347 TAKE 1 TABLET BY MOUT H PRIOR TO EVENT NEEDED 07/24/2017 10/11/2017 Inactive Generic For:INDERAL 40 MG TABLET 2016 9:51:34 AM Prozac 10 mg capsule RxNorm: 034902 1 Capsule(s) PO daily may increase after a few weeks if needed 04/09/2017 04/08/2017 Inactive Pt to call if he wants dose increased Prozac 10 mg capsule RxNorm: 874061 1 Capsule(s) PO daily may increase after a few weeks if needed 04/09/2017 05/02/2018 Inactive Pt to call if he wants dose increased Ambien 10 mg tablet RxNorm: 068619 1 Tablet(s) PO HS PRN 03/26/2017 05/02/2018 Inactive betamethasone johnny te 0.1 % topical cream RxNorm: 966717 1 Application TOP BID 03/26/2017 04/08/2017 In active Keflex 500 mg capsule RxNorm: 260506 1 Capsule(s) PO TID 03/26/2017 04/01/2017 Inactive Klonopin 0.5 mg tablet RxNorm: 094315 Tablet(s) TAKE 1 TABLET BY MOUTH EVERY 8 HOURS NEEDED 01/28/2017 06/02/2019 Inactive prednisone 10 mg tablet RxNorm: 396942 Tablet(s) PO UD 11/18/2016 05/02/2018 Inactive 6,5,4,3,2,1 Zithromax Z-Kevin 250 mg tablet RxNorm: 634114 1 Tablet(s) PO UD 11/18/2016 01/27/2017 Inactive 1 zpack Klonopin 0.5 mg tablet RxNorm: 366717 Tablet(s) TAKE 1 TABLET BY MOUTH EVERY 8 HOURS NEEDED 07/09/2016 08/05/2016 Inactive Generic For:KLONOPIN 0.5 MG TABLET N O T I C E PRESCRIPTION PREVIOUSLY AUTHORIZED BY DOCTOR:JULES DELANEY [phone] mirtazapine 7.5 mg t ablet RxNorm: 938358 1 Tablet(s) PO QHS 07/04/2016 04/08/2017 Inactive Belsomra 10 mg tablet RxNorm: 6987529 1 Tablet(s) PO QHS 05/30/2016 05/29/2016 Inactive Belsomra 10 mg tablet RxNorm: 3808615 1 Tablet(s) PO QHS as needed 05/30/2016 03/25/2017 In active propranolol 40 mg ta blet RxNorm: 409697 Tablet(s) 1 - 1.5 Tab let(s) PO prior to event as needed 05/06/2016 07/23/2017 Inactive mirtazapine 15 mg ta blet RxNorm: 677010 1 Tablet(s) PO QHS 04/30/2016 05/29/2016 Inactive amitriptyline 25 mg tablet RxNorm: 063925 1 Tablet(s) PO QPM 04/21/2016 04/29/2016 Inactive propranolol 40 mg ta blet RxNorm: 702966 1 Tablet(s) PO prior to event as needed 04/10/2016 05/05/2016 In active Klonopin 0.5 mg tablet RxNorm: 670643 Tablet(s) TAKE 1 TABLET BY MOUTH EVERY 8 HOURS NEEDED 02/29/2016 03/18/2016 Inactive Generic For:KLONOPIN 0.5 MG TABLET N O T I C E PRESCRIPTION PREVIOUSLY AUTHORIZED BY DOCTOR:JULES DELANEY [phone] Sonia-D 24 Hour 18 0 mg-240 mg tablet,extended release RxNorm: 259029 1 Tablet(s) PO daily 01/21/2016 01/20/2016 Inactive Sonia-D 24 Hour 18 0 mg-240 mg tablet,extended release RxNorm: 353671 1 Tablet(s) PO daily 01/21/2016 12/28/2018 Inactive propranolol 40 mg ta blet RxNorm: 350876 1 Tablet(s) PO prior to event as needed 11/20/2015 04/09/2016 In active Zithromax Z-Kevin 250 mg tablet RxNorm: 696088 1 Tablet(s) PO UD 10/19/2015 05/05/2016 Inactive 1 zpack Klonopin 0.5 mg tablet RxNorm: 916583 Tablet(s) TAKE 1 TABLET BY MOUTH EVERY 8 HOURS NEEDED 07/17/2015 08/04/2015 Inactive Generic For:KLONOPIN 0.5 MG TABLET N O T I C E PRESCRIPTION PREVIOUSLY AUTHORIZED BY DOCTOR:JULES DELANEY Klonopin 0.5 mg tablet RxNorm: 155803 Tablet(s) TAKE 1 TABLET BY MOUTH EVERY 8 HOURS NEEDED 07/17/2015 07/16/2015 Inactive Generic For:KLONOPIN 0.5 MG TABLET N O T I C E PRESCRIPTION PREVIOUSLY AUTHORIZED BY DOCTOR:JULES DELANEY [phone] Klonopin 0.5 mg tablet RxNorm: 608265 TAKE 1 TABLET BY MOUTH EVERY 8 HOURS NEEDED 07/16/2015 07/16/2015 Inactive Generic For:KLONOPIN 0.5 MG TABLET N O T I C E PRESCRIPTION PREVIOUSLY AUTHORIZED BY DOCTOR:JULES DELANEY Lexapro 10 mg tablet RxNorm: 431158 1 Tablet(s) PO daily 05/11/2015 08/28/2015 Inactive propranolol 40 mg ta blet RxNorm: 376559 1 Tablet(s) PO prior to john n No Start Date 11/19/2015 Inactive Zithromax Z-Kevin 250 mg tablet RxNorm: 755084 1 Tablet(s) PO UD No Start Date 10/18/2015 Inactive 1 zpack Klonopin 0.5 mg tablet RxNorm: 466666 Tablet(s) PO as needed No Start Date 07/17/2015 Inactive Symbicort 160 mcg-4. 5 mcg/actuation HFA aerosol inhaler RxNorm: 7917476 2 Puff(s) INH BID No Start Date 12/27/2018 Inactive Medication Administered Medication Codes Instruc tions Start Date Status Kenalog 40 mg/mL suspension for injection RxNorm: 0276063 Milliliter 01/12/2019 No longer Active ceftriaxone 500 mg solution for injection RxNorm: 7860696 01/12/2019 No longer A ctive Immunizations Vaccine [...] 1: 134/82 Code: 8480-6 BMI: 32.7 Code: 64331-2 Heart Rate 1: 114 bpm Height: 6'7" SpO2: 97% Weight: 290 lbs 06/03/2019 Blood Pressure 1: 138/72 Code: 8480-6 Heart Rate 1: 90 bpm Height: 6'7" SpO2: 96% Weight: 03/22/2019 Blood Pressure 1: 140/86 Code: 8480-6 BMI: 30.9 Code: 40246-5 Heart Rate 1: 94 bpm Height: 6'7" SpO2: 95% Weight: 274 lbs 6 oz 02/10/2019 Blood Pressure 1: 154/110 Code: 8480-6 Blood Pressure 1: 142/88 Code: 8480-6 BMI: 30.1 Code: 95012-6 Heart Rate 1: 84 bpm Height: 6'7" Height: SpO2: 98% Weight: 267 lbs Weight: 01/12/2019 Blood Pressure 1: 144/78 Code: 8480-6 BMI: 30.1 Code: 07389-6 Heart Rate 1: 102 bpm Height: 6'7" SpO2: 98% Weight: 267 lbs 12/29/2018 Blood Pressure 1: 138/88 Code: 8480-6 BMI: 30.1 Code: 85333-4 Heart Rate 1: 89 bpm Height: 6'7" SpO2: 98% Temperature: 36.5 (C ) / 97.7 (F) Weight: 267 lbs 09/20/2018 Blood Pressure 1: 132/80 Code: 8480-6 BMI: 29.5 Code: 12550-4 Heart Rate 1: 96 bpm Height: 6'7" SpO2: 98% Weight: 262 lbs 06/09/2018 Blood Pressure 1: 142/84 Code: 8480-6 BMI: 29.7 Code: 29810-3 Heart Rate 1: 89 bpm Height: 6'7" SpO2: 96% Weight: 264 lbs 05/03/2018 Blood Pressure 1: 150/78 Code: 8480-6 BMI: 28.8 Code: 29452-6 Heart Rate 1: 96 bpm Height: 6'7" SpO2: 97% Weight: 256 lbs 03/26/2017 Blood Pressure 1: 146/84 Code: 8480-6 BMI: 29.1 Code: 06696-9 Heart Rate 1: 87 bpm Height: 6'7" SpO2: 97% Weight: 258 lbs 11/28/2016 Blood Pressure 1: 136/68 Code: 8480-6 BMI: 28.8 Code: 72778-3 Heart Rate 1: 76 bpm Height: 6'7" SpO2: 97% Weight: 256 lbs 11/18/2016 Blood Pressure 1: 132/76 Code: 8480-6 BMI: 28.8 Code: 23558-7 Heart Rate 1: 97 bpm Height: 6'7" SpO2: 98% Temperature: 37.3 (C ) / 99.2 (F) Weight: 256 lbs 05/06/2016 Blood Pressure 1: 140/92 Code: 8480-6 BMI: 27.7 Code: 10307-9 Heart Rate 1: 103 bpm Height: 6'7" SpO2: 98% Weight: 246 lbs 04/21/2016 Blood Pressure 1: 152/80 Code: 8480-6 BMI: 28.1 Code: 79556-3 Heart Rate 1: 97 bpm Height: 6'7" SpO2: 98% Weight: 249 lbs 08/29/2015 Blood Pressure 1: 120/80 Code: 8480-6 BMI: 26.9 Code: 54688-0 Height: 6'7" Weight: 239 lbs 05/11/2015 Blood Pressure 1: 132/80 Code: 8480-6 Blood Pressure 2: 122/80 Code: 8480-6 BMI: 27.0 Code: 92523-6 Heart Rate 1: 92 bpm Height: 6'7" [...] Encounters Encounter Performer Loca tion Codes Date 03607 EST. PATIENT, LEVEL III Diagnosis: Pain in left toe(s)[ICD10: M79.675] Diagnosis: Cellulitis of left toe[ICD10: L03.032] Fay Crandall MD, [facility] CPT-4: 45473 06/15/2019 [id number] EST. PATIENT, LEVEL II Diagnosis: Cellulitis of left toe[ICD10: L03.032] Alise Crandall MD, [facility] CPT-4: 25077 06/03/2019 ([id number]) 85606 EST. [facility] Diagnosis: Acute recurrent maxillary sinusitis[ICD10: J01.01] Diagnosis: Generalized anxiety disorder[ICD10: F41.1] Sveta Crandall MD, [facility] CPT-4: 72471 03/22/2019 ([id number]) 61433 EST. [facility] Diagnosis: Phlebitis and thrombophlebitis of superficial vessels of right lower extremity[ICD10: I80.01] Diagnosis: Effusion, right foot[ICD10: M25.474] Diagnosis: Cough[ICD10: R05] Diagnosis: Other allergic rhinitis[ICD10: J30.89] Sveta Crandall MD, [facility] CPT-4: 88573 02/10/2019 [id number] EST. PATIENT, LEVEL IV Diagnosis: Acute bronchitis due to other specified organisms[ICD10: J20.8] Diagnosis: Acute laryngopharyngitis[ICD10: J06.0] Diagnosis: Other allergic rhinitis[ICD10: J30.89] Fay Crandall MD, [facility] CPT-4: 80153 01/12/2019 ([id number]) 48946 EST. [facility] Diagnosis: Acute laryngopharyngitis[ICD10: J06.0] Diagnosis: Acute recurrent maxillary sinusitis[ICD10: J01.01] Diagnosis: Cough[ICD10: R05] Diagnosis: Generalized anxiety disorder[ICD10: F41.1] Sveta Crandall MD, [facility] CPT-4: 67766 12/29/2018 ([id number]) 50986 EST. P ATIENT, LEVEL III Diagnosis: Generalized anxiety disorder[ICD10: F41.1] Sveta Cr[facility]all MD, [facility] CPT-4: 91733 09/20/2018 ([id number]) 99145 EST. P ATIENT, LEVEL III Diagnosis: Generalized anxiety disorder[ICD10: F41.1] S[facility]eta Cr[facility]all MD, [facility] CPT-4: 53653 06/09/2018 ([id number]) PREV VISIT E ST AGE 40-64 Diagnosis: Encounter for general adult medical examination without abnormal findings[ICD10: Z00.00] Sveta Crandall MD, [facility] CPT-4: 91174 05/03/2018 ([id number]) 37794 EST. P ATIENT, LEVEL III Diagnosis: Cellulitis of left toe[ICD10: L03.032] Diagnosis: Adjustment insomnia[ICD10: F51.02] Diagnosis: Dermatitis, unspecified[ICD10: L30.9] Alise Crandall MD, [facility] CPT-4: 27000 03/26/2017 ([id number]) 36596 EST. P ATIENT, LEVEL III Diagnosis: Cough[ICD10: R05] Alise Crandall MD, [facility] CPT-4: 46601 11/28/2016 38922 EST. PATIENT, LEVEL III Diagnosis: Acute laryngopharyngitis[ICD10: J06.0] Diagnosis: Acute bronchitis due to other specified organisms[ICD10: J20.8] Fay Crandall MD, [facility] CPT-4: 97145 11/18/2016 ([id number]) 07770 EST. P ATIENT, LEVEL III Diagnosis: Generalized anxiety disorder[ICD10: F41.1] Sveta Crandall MD, [facility] CPT-4: 44795 05/06/2016 ([id number]) 85032 EST. P ATIENT, LEVEL III Diagnosis: Generalized anxiety disorder[ICD10: F41.1] Sveta Crandall MD, [facility] CPT-4: 70768 04/21/2016 ([id number] 49624 EST. P ATIENT, LEVEL III Diagnosis: Generalized anxiety disorder[ICD10: F41.1] [facility] CPT-4: 51872 08/29/2015 ([id number]) PREV VISIT E ST AGE 40-64 Diagnosis: Well adult exam[ICD9: V70.0] Diagnosis: Anxiety[ICD9: 300.00] Alise Crandall MD, [facility] CPT-4: 07387 05/11/2015 Plan of Care Planned Activity Notes C odes Status Date Visit Plan: ongoing Cellulitis - wi check labs and treat as indicated - continue with oral antibiotics as previously directed, return to clinic as previously directed, call for acute change in symptoms, worsening redness, warmth, discharge. 06/15/2019 Appointment: Fay Dave [facility]el[facility] (15 min) Moderate 06/15/2019 Patient Education: Patient Medication Summary Completed 06/15/2019 Care Plan: Cbc With Differential Pending 06/15/2019 Care Plan: Uric Acid Pending 06/15/2019 Visit Plan: Cellulitis - continue w ith oral antibiotics as previously directed, return to clinic as previously directed, call for acute change in symptoms, worsening redness, warmth, discharge. 06/03/2019 Appointment: Alise Collins WPtel[phone] (15 min) Moderate 06/03/2019 Patient Education: Patient Medication Summary Completed 06/03/2019 Visit Plan: Sinusitis - Pt has acut e infection - pain in face, maxillary region, Pt informed to use decongestant, RX given to patient, sinus rinses also recommended. Call if symptoms do not show improvement. decadr on nasal spray at the [facility] - if not improvement in one week - then ct scan of sinuses. [email or web address] 03/22/2019 Appointment: Sveta Crandall WPtel[facility] ([facility] min) Moderate 03/22/2019 Patient Education: Patient [...] any worse. 02/10/2019 Appointment: Alise Collins WPtel[facility] (30 min) Complex 02/10/2019 Patient Education: [...] allergy spray. 01/12/2019 Appointment: Fay Dave WPtel: [facility] [place] (30 min) Complex 01/12/2019 Patient Education: [...] pharmacy 12/29/2018 App[facility]ment[facility] [phone] [facility] (15 min) Moderate 12/29/2018 Patient Education: Patient [...] current medications. 09/20/2018 Appointment: Sveta Cr[facility]all WPtel[facility] ([facility] min) Moderate 09/20/2018 Patient Education: Patient Medication Summary Completed 09/20/2018 Visit Plan: Anxiety and Depression - the pt has symptoms have been fairly well controlled since the last office visit. The pt has expected periods of exacerbation with abatement of the symptoms with change in situa tional exposure. No change in current medications. 06/09/2018 Appointment: Sveta Crandall WPtel[facility] [place] (15 min) Moderate 06/09/2018 Patient Education: [...] on lexapro. 05/03/2018 Appointment: [facility] [phone] [facility] (15 min) Moderate 05/03/2018 Patient Education: Patient [...] of plan. 03/26/2017 Appointment: Alise Collins WPtel: [phone] [phone] (15 min) Moderate 03/26/2017 Patient Education: Patient [...] worsen. 11/18/2016 Appointment: Fay Dave [facility] [phone] [facility] (30 min) Complex 11/18/2016 Patient Education: Patient [...] current medications. 08/29/2015 Appointment: Sveta Crandall WPtel: [facility] (15 min) Moderate 08/29/2015 Patient Education: Patient Medication Summary Completed 08/29/2015 Appointment: Sveta Crandall WPtel: [facility] (15 min) Moderate 07/31/2015 Appointment: Sveta Crandall WPtel: [facility] (15 min) Moderate 07/05/2015 Visit Plan: Well [...] Completed 05/11/2015 Instructions Comment . Cough-recent [facility] hitis-symptoms improving-recommend patient take sonia daily-monitor symptoms [...] not show improvement. decadron nasal spray at the [facility] - if not improvement in one [...]
--- OUTSIDE RECORDS SUMMARY | 2020-06-10 16:20 | XMS REPORT | CCD ---
Author Author Aldair Collins Organization Sveta Crandall MD, [facility] Address [address] [place] [address] Phone Care Team Providers Care Toll Collector Name Role Phone PP Unavailable CCM Unavailable Summary Purpose Interface Exchange Insurance Providers Payer name Policy type / Coverage type Covered democrat ID Effective Begin Date Effective End Date Blue Cross Blue Shield [facility] e Cross/Blue Shield [id number] Unknown Unk nown Family history Father Diagnosis Age At Onset Hypertension Unknown Mother Diagnosis Age At Onset alcohol dependence Unknown Skin cancer Unknown Cancer Unknown Depression Unknown Social History Social History Element Codes Description Effective Dates Marital status Unknown M daniela Coello 05/03/2018 Number of children Unknown 2 05/11/[address]: 911817986 Never smoker 05/11/2015 Alcohol history Unknown occasionally drinks alcohol 05/11/2015 Allergies, Adverse Reactions, Alerts Substance Reaction Codes Entered Date Inactivated Date Status * NO KNOWN DRUG SANTANA RGIES Unknown 08/29/2015 No Inactive Date Active Past Medical History Illness Codes Condition Status Onset Date Resolved Date Cellulitis of left toe ICD-9: 681.10 ICD-10: L03.032 Active 06/03/2019 Unknown Acute recurrent maxi llary sinusitis ICD-9: [...] toe ICD-9: 681.10 ICD-10: L03.032 06/03/2019 Active Acute recurrent maxi llary sinusitis ICD-9: [...] Date Stop Date Sta tus Fill Instructions Keflex 500 mg capsule RxNorm: 327175 1 Capsule(s) PO TID 06/03/2019 06/09/2019 Active Lexapro 10 mg tablet RxNorm: 648444 1 Tablet(s) PO QHS 03/22/2019 03/15/2020 Active Keflex 500 mg capsule RxNorm: 519195 1 Capsule(s) PO TID 02/10/2019 02/19/2019 Inactive Kenalog 40 mg/mL luis pension for injection RxNorm: 0532888 Milliliter(s) Inj 01/12/2019 01/12/2019 In active Levaquin 500 mg tablet RxNorm: 053683 1 Tablet(s) PO daily 01/12/2019 01/18/2019 Inactive prednisone 10 mg tablet RxNorm: 859284 Tablet(s) PO 01/12/2019 03/21/2019 Inactive 60mg x 2 days, then 50mg x 2 days, then 40mg x 2 days, then 30mg x 2 days, then 20mg x 2 days, then 10mg x 2 days, then 5mg every other day x 2 doses. Singulair 10 mg tablet RxNorm: 655574 1 Tablet(s) PO QHS 01/12/2019 02/10/2019 Inactive ceftriaxone 500 mg s olution for injection RxNorm: 5230631 Inj 01/12/2019 01/12/2019 Inactive Sonia-D 12 Hour 60 mg-120 mg tablet,extended release RxNorm: 533857 1 Tablet(s) PO daily 12/29/2018 01/27/2019 Inactive Lexapro 10 mg tablet RxNorm: 744119 1.5 Tablet(s) PO QHS 12/29/2018 03/21/2019 Inactive Bactrim DS 800 mg-16 0 mg tablet RxNorm: 369479 1 Tablet(s) PO BID 12/29/2018 01/07/2019 Inactive Symbicort 160 mcg-4. 5 mcg/actuation HFA aerosol inhaler RxNorm: 1450716 2 Puff(s) INH BID 12/28/2018 No Stop Date Active Xanax 0.25 mg tablet RxNorm: 688446 1 Tablet(s) PO TID as needed anxiety 11/25/2018 01/23/2019 In active Lexapro 10 mg tablet RxNorm: 239449 1.5 Tablet(s) PO QHS 11/23/2018 12/28/2018 Inactive propranolol 40 mg ta blet RxNorm: 660767 Tablet(s) TAKE 1 TABL ET BY MOUTH PRIOR TO EVENT NEEDED 09/20/2018 12/08/2018 Inactive Lexapro 10 mg tablet RxNorm: 812333 1 Tablet(s) PO QHS 08/30/2018 11/22/2018 Inactive Lexapro 10 mg tablet RxNorm: 682569 1 Tablet(s) PO QHS 05/03/2018 08/29/2018 Inactive cyclobenzaprine 5 mg tablet RxNorm: 589146 1 Tablet(s) PO TID as needed 01/05/2018 01/09/2018 In active cyclobenzaprine 5 mg tablet RxNorm: 651495 1 Tablet(s) PO TID as needed 01/05/2018 01/04/2018 In active propranolol 40 mg ta blet RxNorm: 613388 TAKE 1 TABLET BY MOUT H PRIOR TO EVENT NEEDED 07/24/2017 10/11/2017 Inactive Generic For:INDERAL 40 MG TABLET 2016 9:51:34 AM Prozac 10 mg capsule RxNorm: 264609 1 Capsule(s) PO daily may increase after a few weeks if needed 04/09/2017 04/08/2017 Inactive Pt to call if he wants dose increased Prozac 10 mg capsule RxNorm: 599820 1 Capsule(s) PO daily may increase after a few weeks if needed 04/09/2017 05/02/2018 Inactive Pt to call if he wants dose increased Ambien 10 mg tablet RxNorm: 496388 1 Tablet(s) PO HS PRN 03/26/2017 05/02/2018 Inactive betamethasone johnny te 0.1 % topical cream RxNorm: 718002 1 Application TOP BID 03/26/2017 04/08/2017 In active Keflex 500 mg capsule RxNorm: 447280 1 Capsule(s) PO TID 03/26/2017 04/01/2017 Inactive Klonopin 0.5 mg tablet RxNorm: 037853 Tablet(s) TAKE 1 TABLET BY MOUTH EVERY 8 HOURS NEEDED 01/28/2017 06/02/2019 Inactive prednisone 10 mg tablet RxNorm: 550216 Tablet(s) PO UD 11/18/2016 05/02/2018 Inactive 6,5,4,3,2,1 Zithromax Z-Kevin 250 mg tablet RxNorm: 283883 1 Tablet(s) PO UD 11/18/2016 01/27/2017 Inactive 1 zpack Klonopin 0.5 mg tablet RxNorm: 665159 Tablet(s) TAKE 1 TABLET BY MOUTH EVERY 8 HOURS NEEDED 07/09/2016 08/05/2016 Inactive Generic For:KLONOPIN 0.5 MG TABLET N O T I C E PRESCRIPTION PREVIOUSLY AUTHORIZED BY DOCTOR:JULES DELANEY mirtazapine 7.5 mg t ablet RxNorm: 082519 1 Tablet(s) PO QHS 07/04/2016 04/08/2017 Inactive Belsomra 10 mg tablet RxNorm: 8661499 1 Tablet(s) PO QHS 05/30/2016 05/29/2016 Inactive Belsomra 10 mg tablet RxNorm: 7899785 1 Tablet(s) PO QHS as needed 05/30/2016 03/25/2017 In active propranolol 40 mg ta blet RxNorm: 156129 Tablet(s) 1 - 1.5 Tab let(s) PO prior to event as needed 05/06/2016 07/23/2017 Inactive mirtazapine 15 mg ta blet RxNorm: 144233 1 Tablet(s) PO QHS 04/30/2016 05/29/2016 Inactive amitriptyline 25 mg tablet RxNorm: 999737 1 Tablet(s) PO QPM 04/21/2016 04/29/2016 Inactive propranolol 40 mg ta blet RxNorm: 344007 1 Tablet(s) PO prior to event as needed 04/10/2016 05/05/2016 In active Klonopin 0.5 mg tablet RxNorm: 671958 Tablet(s) TAKE 1 TABLET BY MOUTH EVERY 8 HOURS NEEDED 02/29/2016 03/18/2016 Inactive Generic For:KLONOPIN 0.5 MG TABLET N O T I C E PRESCRIPTION PREVIOUSLY AUTHORIZED BY DOCTOR:JULES DELANEY [phone] Sonia-D 24 Hour 18 0 mg-240 mg tablet,extended release RxNorm: 551159 1 Tablet(s) PO daily 01/21/2016 01/20/2016 Inactive Sonia-D 24 Hour 18 0 mg-240 mg tablet,extended release RxNorm: 311388 1 Tablet(s) PO daily 01/21/2016 12/28/2018 Inactive propranolol 40 mg ta blet RxNorm: 295960 1 Tablet(s) PO prior to event as needed 11/20/2015 04/09/2016 In active Zithromax Z-Kevin 250 mg tablet RxNorm: 254922 1 Tablet(s) PO UD 10/19/2015 05/05/2016 Inactive 1 zpack Klonopin 0.5 mg tablet RxNorm: 199640 Tablet(s) TAKE 1 TABLET BY MOUTH EVERY 8 HOURS NEEDED 07/17/2015 08/04/2015 Inactive Generic For:KLONOPIN 0.5 MG TABLET N O T I C E PRESCRIPTION PREVIOUSLY AUTHORIZED BY DOCTOR:JULES DELANEY [phone] Klonopin 0.5 mg tablet RxNorm: 600234 Tablet(s) TAKE 1 TABLET BY MOUTH EVERY 8 HOURS NEEDED 07/17/2015 07/16/2015 Inactive Generic For:KLONOPIN 0.5 MG TABLET N O T I C E PRESCRIPTION PREVIOUSLY AUTHORIZED BY DOCTOR:JULES DELANEY [phone] Klonopin 0.5 mg tablet RxNorm: 481445 TAKE 1 TABLET BY MOUTH EVERY 8 HOURS NEEDED 07/16/2015 07/16/2015 Inactive Generic For:KLONOPIN 0.5 MG TABLET N O T I C E PRESCRIPTION PREVIOUSLY AUTHORIZED BY DOCTOR:JULES DELANEY Lexapro 10 mg tablet RxNorm: 938956 1 Tablet(s) PO daily 05/11/2015 08/28/2015 Inactive propranolol 40 mg ta blet RxNorm: 826656 1 Tablet(s) PO prior to john n No Start Date 11/19/2015 Inactive Zithromax Z-Kevin 250 mg tablet RxNorm: 755388 1 Tablet(s) PO UD No Start Date 10/18/2015 Inactive 1 zpack Klonopin 0.5 mg tablet RxNorm: 324583 Tablet(s) PO as needed No Start Date 07/17/2015 Inactive Symbicort 160 mcg-4. 5 mcg/actuation HFA aerosol inhaler RxNorm: 3079411 2 Puff(s) INH BID No Start Date 12/27/2018 Inactive Medication Administered Medication Codes Instruc tions Start Date Status Kenalog 40 mg/mL suspension for injection RxNorm: 9495197 Milliliter 01/12/2019 No longer Active ceftriaxone 500 mg solution for injection RxNorm: 9857124 01/12/2019 No longer A ctive Immunizations Vaccine Codes Date Status Tetanus, Diptheria, Pertussis CVX: 113 04/02/2015 completed Tetanus/Diptheria CVX: 113 04/02/2015 completed Assessments Condition Codes Effectiv e Dates Cellulitis of left toe ICD-10: L03.0 32 ICD-9: 681.10 06/03/2019 Acute recurrent maxillary sinusitis ICD-10: J01.01 ICD-9: [...] For Visit Effective Dates Notes foot pain 06/03/2019 anxiety 03/22/2019 cough 02/10/2019 cough 01/12/2019 cough 12/29/2018 anxiety 09/20/2018 anxiety 06/09/2018 well man exam (40-65 years) 05/03/2018 foot pain 03/26/2017 chest congestion 11/28/2016 cough 11/18/2016 anxiety 05/06/2016 anxiety 04/21/2016 well man exam (40-65 years) 05/11/2015 Results No Results data Review of Systems System Result Effective Dates Constitutional No recent illness 06/03/2019 Constitutional No [...] Gastrointestinal No abdominal pain 06/09/2018 Psychiatric anxiety 08/06/2018 Psychiatric No depression 06/09/2018 Constitutional No recent [...] No alteration of consciousness 05/06/2016 Psychiatric anxiety 03/2016 Constitutional No recent illness 04/21/2016 Constitutional [...] base of toenail Full Exam - General 1995 Integument inspection of skin Location: right foot [...] CPT-4: J3301 11/18/2016 Vital Signs Date Vital 06/03/2019 Blood Pressure 1: 138/72 Code: 8480-6 Heart Rate 1: 90 bpm Height: 6'7" SpO2: 96% Weight: 03/22/2019 Blood Pressure 1: 140/86 Code: 8480-6 BMI: 30.9 Code: 67399-7 Heart Rate 1: 94 bpm Height: 6'7" SpO2: 95% Weight: 274 lbs 6 oz 02/10/2019 Blood Pressure 1: 154/110 Code: 8480-6 Blood Pressure 1: 142/88 Code: 8480-6 BMI: 30.1 Code: 16456-4 Heart Rate 1: 84 bpm Height: 6'7" Height: SpO2: 98% Weight: 267 lbs Weight: 01/12/2019 Blood Pressure 1: 144/78 Code: 8480-6 BMI: 30.1 Code: 71940-7 Heart Rate 1: 102 bpm Height: 6'7" SpO2: 98% Weight: 267 lbs 12/29/2018 Blood Pressure 1: 138/88 Code: 8480-6 BMI: 30.1 Code: 76808-5 Heart Rate 1: 89 bpm Height: 6'7" SpO2: 98% Temperature: 36.5 (C ) / 97.7 (F) Weight: 267 lbs 09/20/2018 Blood Pressure 1: 132/80 Code: 8480-6 BMI: 29.5 Code: 58557-2 Heart Rate 1: 96 bpm Height: 6'7" SpO2: 98% Weight: 262 lbs 06/09/2018 Blood Pressure 1: 142/84 Code: 8480-6 BMI: 29.7 Code: 66637-5 Heart Rate 1: 89 bpm Height: 6'7" SpO2: 96% Weight: 264 lbs 05/03/2018 Blood Pressure 1: 150/78 Code: 8480-6 BMI: 28.8 Code: 25596-8 Heart Rate 1: 96 bpm Height: 6'7" SpO2: 97% Weight: 256 lbs 03/26/2017 Blood Pressure 1: 146/84 Code: 8480-6 BMI: 29.1 Code: 05567-5 Heart Rate 1: 87 bpm Height: 6'7" SpO2: 97% Weight: 258 lbs 11/28/2016 Blood Pressure 1: 136/68 Code: 8480-6 BMI: 28.8 Code: 60957-6 Heart Rate 1: 76 bpm Height: 6'7" SpO2: 97% Weight: 256 lbs 11/18/2016 Blood Pressure 1: 132/76 Code: 8480-6 BMI: 28.8 Code: 81897-3 Heart Rate 1: 97 bpm Height: 6'7" SpO2: 98% Temperature: 37.3 (C ) / 99.2 (F) Weight: 256 lbs 05/06/2016 Blood Pressure 1: 140/92 Code: 8480-6 BMI: 27.7 Code: 20258-7 Heart Rate 1: 103 bpm Height: 6'7" SpO2: 98% Weight: 246 lbs 04/21/2016 Blood Pressure 1: 152/80 Code: 8480-6 BMI: 28.1 Code: 93867-8 Heart Rate 1: 97 bpm Height: 6'7" SpO2: 98% Weight: 249 lbs 08/29/2015 Blood Pressure 1: 120/80 Code: 8480-6 BMI: 26.9 Code: 36642-3 Height: 6'7" Weight: 239 lbs 05/11/2015 Blood Pressure 1: 132/80 Code: 8480-6 Blood Pressure 2: 122/80 Code: 8480-6 BMI: 27.0 Code: 12555-1 Heart Rate 1: 92 bpm Height: 6'7" SpO2: 98% Weight: 240 lbs Functional Status No Functional Status data History of Present Illness Symptom Name Status Resu lt Effective Date Notes Location on the left 06/03/2019 None Quality [...] Encounters Encounter Performer Loca tion Codes Date 50974 EST. PATIENT, LEVEL II Diagnosis: Cellulitis of left toe[ICD10: L03.032] Alise Crandall MD, [facility] CPT-4: 46202 06/03/2019 ([id number]) 65894 EST. P ATIENT, LEVEL III Diagnosis: Acute recurrent maxillary sinusitis[ICD10: J01.01] Diagnosis: Generalized anxiety disorder[ICD10: F41.1] Sveta Crandall MD, [facility] CPT-4: 68399 03/22/2019 ([id number]) 66962 EST. P ATIENT, LEVEL III Diagnosis: Phlebitis and thrombophlebitis of superficial vessels of right lower extremity[ICD10: I80.01] Diagnosis: Effusion, right foot[ICD10: M25.474] Diagnosis: Cough[ICD10: R05] Diagnosis: Other allergic rhinitis[ICD10: J30.89] Sveta Crandall MD, [facility] CPT-4: 41856 02/10/2019 52919 EST. PATIENT, LEVEL IV Diagnosis: Acute bronchitis due to other specified organisms[ICD10: J20.8] Diagnosis: Acute laryngopharyngitis[ICD10: J06.0] Diagnosis: Other allergic rhinitis[ICD10: J30.89] Fay Crandall MD, [facility] CPT-4: 57683 01/12/2019 ([id number]) 27409 EST. P ATIENT, LEVEL III Diagnosis: Acute laryngopharyngitis[ICD10: J06.0] Diagnosis: Acute recurrent maxillary sinusitis[ICD10: J01.01] Diagnosis: Cough[ICD10: R05] Diagnosis: Generalized anxiety disorder[ICD10: F41.1] Sveta Crandall MD, [facility] CPT-4: 15536 12/29/2018 ([id number]) 04654 EST. P ATIENT, LEVEL III Diagnosis: Generalized anxiety disorder[ICD10: F41.1] Sveta Crandall MD, [facility] CPT-4: 99666 09/20/2018 ([id number]) 74511 EST. P ATIENT, LEVEL III Diagnosis: Generalized anxiety disorder[ICD10: F41.1] Sveta Crandall MD, [facility] CPT-4: 89961 06/09/2018 ([id number]) PREV VISIT E ST AGE 40-64 Diagnosis: Encounter for general adult medical examination without abnormal findings[ICD10: Z00.00] Sveta Crandall MD, [facility] CPT-4: 62342 05/03/2018 ([id number]) 53133 EST. P ATIENT, LEVEL III Diagnosis: Cellulitis of left toe[ICD10: L03.032] Diagnosis: Adjustment insomnia[ICD10: F51.02] Diagnosis: Dermatitis, unspecified[ICD10: L30.9] Alise Crandall MD, [facility] CPT-4: 82061 03/26/2017 ([id number]) 38852 EST. P ATIENT, LEVEL III Diagnosis: Cough[ICD10: R05] Alise Crandall MD, [facility] CPT-4: 86943 11/28/2016 91195 EST. PATIENT, LEVEL III Diagnosis: Acute laryngopharyngitis[ICD10: J06.0] Diagnosis: Acute bronchitis due to other specified organisms[ICD10: J20.8] Fay Crandall MD, [facility] CPT-4: 44276 11/18/2016 ([id number]) 95785 EST. P ATIENT, LEVEL III Diagnosis: Generalized anxiety disorder[ICD10: F41.1] Sveta Crandall MD, [facility] CPT-4: 33969 05/06/2016 ([id number]) 13289 EST. P ATIENT, LEVEL III Diagnosis: Generalized anxiety disorder[ICD10: F41.1] Sveta Crandall MD, [facility] CPT-4: 08856 04/21/2016 ([id number]) 07676 EST. P ATIENT, LEVEL III Diagnosis: Generalized anxiety disorder[ICD10: F41.1] Sveta Crandall MD, [facility] CPT-4: 49900 08/29/2015 ([id number]) PREV VISIT E ST AGE 40-64 Diagnosis: Well adult exam[ICD9: V70.0] Diagnosis: Anxiety[ICD9: 300.00] Alise Crandall MD, [facility] CPT-4: 45530 05/11/2015 Plan of Care Planned Activity Notes C odes Status Date Visit Plan: Cellulitis - continue w ith oral antibiotics as previously directed, return to clinic as previously directed, call for acute change in symptoms, worsening redness, warmth, discharge. 06/03/2019 Appointment: Alise Collins WPtel: [address] [place], [place] [phone] (15 min) Moderate 06/03/2019 Patient Education: Patient Medication Summary Completed 06/03/2019 Visit Plan: Sinusitis - Pt has acut e infection - pain in face, maxillary region, Pt informed to use decongestant, RX given to patient, sinus rinses also recommended. Call if symptoms do not show improvement. decadr on nasal spray at [facility] - if not improvement in one week - then ct scan of sinuses. tracy 03/22/2019 Appointment[facility] [phone] [facility] ([facility] min) Moderate 03/22/2019 Patient [...] any worse. 02/10/2019 [facility]ment[facility] [phone] [phone] [place] (30 min) Complex 02/10/2019 Patient Education: Patient [...] allergy spray. 01/12/2019 Appointment: Fay Dave WPtel: [phone] [phone] (30 min) Complex 01/12/2019 Patient Education: Patient [...] to pharmacy 12/29/2018 Appointment: Sveta Crandall WPtel: [facility] (15 min) Moderate 12/29/2018 Patient Education: Patient [...] current medications. 09/20/2018 Appointment: [facility] ([facility] min) Moderate 09/20/2018 Patient Education: Patient Medication Summary Completed 09/20/2018 Visit Plan: Anxiety and Depression - the pt has symptoms have been fairly well controlled since the last office visit. The pt has expected periods of exacerbation with abatement of the symptoms with change in situa tional exposure. No change in current medications. 06/09/2018 Appointment: Sveta Crandall WPtel: [phone] [phone] (15 min) Moderate 06/09/2018 Patient Education: Patient [...] on lexapro. 05/03/2018 Appointment: [facility] [phone] [facility] (15 min) Moderate 05/03/2018 Patient Education: Patient [...] of plan. 03/26/2017 Appointment: [facility] [phone] [phone] (15 min) Moderate 03/26/2017 Patient Education: Patient [...] worsen. 11/18/2016 Appointment: Fay Dave WPtel: [address] [facility] (30 min) Complex 11/18/2016 Patient Education: [...] current medications. 08/29/2015 Appointment: Sveta Crandall WPtel: [phone] [phone] (15 min) Moderate 08/29/2015 Patient Education: Patient Medication Summary Completed 08/29/2015 Appointment: Sveta Crandall WPtel: [phone] [facility] (15 min) Moderate 07/31/2015 Appointment: [facility]andall [facility]el[facility] ([facility] min) Moderate 07/05/2015 Visit Plan: Well [...] Summary Completed 05/11/2015 Instructions Comment . Cough-recent [facility] hitis-symptoms improving-recommend patient take sonia daily-monitor [...] situational exposure. No change in current medications. over the counter pep román AC 20mg [...] not show improvement. decadron nasal spray at [facility] - if not improvement in one [...]
--- OUTSIDE RECORDS SUMMARY | 2020-06-10 16:21 | XMS REPORT | CCD ---
Author Author Aldair Collins Organization Sveta Crandall MD, [facility] Address [address] [place] [address] Phone Care Team Providers Care Location Man Name Role Phone PP Unavailable CCM Unavailable Summary Purpose Interface Exchange Insurance Providers Payer name Policy type / Coverage type Covered republican ID Effective Begin Date Effective End Date Blue Cross Blue Shield [facility] e Cross/Blue Shield [id number] Unknown Unk nown Family history Father Diagnosis Age At Onset Hypertension Unknown Mother Diagnosis Age At Onset alcohol dependence Unknown Skin cancer Unknown Cancer Unknown Depression Unknown Social History Social History Element Codes Description Effective Dates Marital status Unknown M arried kevin 05/11/2015 Number of children Unknown 2 05/11/[address]: 440522680 Never smoker 05/11/2015 Alcohol history Unknown occasionally drinks alcohol 05/11/2015 Allergies, Adverse Reactions, Alerts Allergies, Adverse Reactions, Alerts data not found Past Medical History Illness Codes Condition Status Onset Date Resolved Date Adjustment insomnia ICD- 9: 307.41 ICD-10: F51.02 Active 03/26/2017 Unknown Cellulitis of left toe ICD-9: 681.11 ICD-10: L03.032 Active 03/26/2017 Unknown Dermatitis, unspecified ICD-9: 692.9 ICD-10: L30.9 Active 03/26/2017 Unknown Cough ICD-9: 786.2 ICD-10: R05 Active 11/28/2016 Unknown Acute bronchitis due to other specified organisms ICD-9: 466.0 ICD-10: J20.8 Active 11/17/2016 Unknown Acute laryngopharyng itis ICD-9: 465.0 ICD-10: J06.0 Active 11/17/2016 Unknown Generalized anxiety disorder ICD-9: 300.00 ICD-10: F41.1 Active 05/10/2015 Unknown Anxiety ICD-9: 300.00 Active 05/10/2015 Unknow n Well adult exam ICD-9: V70.0 Active 05/10/2015 Unknown Problems Condition Codes Effectiv e Dates Condition Status Adjustment insomnia ICD- 9: 307.41 ICD-10: F51.02 03/26/2017 Active Cellulitis of left toe ICD-9: 681.11 ICD-10: L03.032 03/26/2017 Active Dermatitis, unspecified ICD-9: 692.9 ICD-10: L30.9 03/26/2017 Active Cough ICD-9: 786.2 ICD-10: R05 11/28/2016 Active Acute bronchitis due to other specified organisms ICD-9: 466.0 ICD-10: J20.8 11/17/2016 Active Acute laryngopharyng itis ICD-9: 465.0 ICD-10: J06.0 11/17/2016 Active Generalized anxiety disorder ICD-9: 300.00 ICD-10: F41.1 05/10/2015 Active Anxiety ICD-9: 300.00 05/10/2015 Active Well adult exam ICD-9: V70.0 05/10/2015 Active Medications Medication Codes Instruc tions Start Date Stop Date Sta tus Fill Instructions Prozac 10 mg capsule RxNorm: 095483 1 Capsule(s) PO daily may increase after a few weeks if needed 04/09/2017 06/07/2017 Active Pt to call if he wants dose increased Prozac 10 mg capsule RxNorm: 417565 1 Capsule(s) PO daily may increase after a few weeks if needed 04/09/2017 04/08/2017 Inactive Pt to call if he wants dose increased Ambien 10 mg tablet RxNorm: 163557 1 Tablet(s) PO HS PRN 03/26/2017 No Stop Date Active betamethasone johnny te 0.1 % topical cream RxNorm: 768138 1 Application TOP BID 03/26/2017 04/08/2017 In active Keflex 500 mg capsule RxNorm: 514725 1 Capsule(s) PO TID 03/26/2017 04/01/2017 Inactive Klonopin 0.5 mg tablet RxNorm: 160357 Tablet(s) TAKE 1 TABLET BY MOUTH EVERY 8 HOURS NEEDED 01/28/2017 02/26/2017 Inactive prednisone 10 mg tablet RxNorm: 597346 Tablet(s) PO UD 11/18/2016 No Stop Date Active 6,5,4,3,2,1 Zithromax Z-Kevin 250 mg tablet RxNorm: 495055 1 Tablet(s) PO UD 11/18/2016 01/27/2017 Inactive 1 fadi Klonopin 0.5 mg tablet RxNorm: 150761 Tablet(s) TAKE 1 TABLET BY MOUTH EVERY 8 HOURS NEEDED 07/09/2016 08/05/2016 Inactive Generic For:KLONOPIN 0.5 MG TABLET N O T I C E PRESCRIPTION PREVIOUSLY AUTHORIZED BY DOCTOR:JULES DELANEY [phone] mirtazapine 7.5 mg t ablet RxNorm: 040146 1 Tablet(s) PO QHS 07/04/2016 04/08/2017 Inactive Belsomra 10 mg tablet RxNorm: 0611463 1 Tablet(s) PO QHS 05/30/2016 05/29/2016 Inactive Belsomra 10 mg tablet RxNorm: 1242580 1 Tablet(s) PO QHS as needed 05/30/2016 03/25/2017 In active propranolol 40 mg ta blet RxNorm: 888645 Tablet(s) 1 - 1.5 Tab let(s) PO prior to event as needed 05/06/2016 No Stop Date Active mirtazapine 15 mg ta blet RxNorm: 850375 1 Tablet(s) PO QHS 04/30/2016 05/29/2016 Inactive amitriptyline 25 mg tablet RxNorm: 153032 1 Tablet(s) PO QPM 04/21/2016 04/29/2016 Inactive propranolol 40 mg ta blet RxNorm: 743707 1 Tablet(s) PO prior to event as needed 04/10/2016 05/05/2016 In active Klonopin 0.5 mg tablet RxNorm: 979142 Tablet(s) TAKE 1 TABLET BY MOUTH EVERY 8 HOURS NEEDED 02/29/2016 03/18/2016 Inactive Generic For:KLONOPIN 0.5 MG TABLET N O T I C E PRESCRIPTION PREVIOUSLY AUTHORIZED BY DOCTOR:JULES DELANEY Augustine-D 24 Hour 18 0 mg-240 mg tablet,extended release RxNorm: 554448 1 Tablet(s) PO daily 01/21/2016 02/29/2016 Inactive Augustine-D 24 Hour 18 0 mg-240 mg tablet,extended release RxNorm: 544285 1 Tablet(s) PO daily 01/21/2016 01/20/2016 Inactive propranolol 40 mg ta blet RxNorm: 869616 1 Tablet(s) PO prior to event as needed 11/20/2015 04/09/2016 In active Zithromax Z-Kevin 250 mg tablet RxNorm: 909033 1 Tablet(s) PO UD 10/19/2015 05/05/2016 Inactive 1 zpack Klonopin 0.5 mg tablet RxNorm: 584372 Tablet(s) TAKE 1 TABLET BY MOUTH EVERY 8 HOURS NEEDED 07/17/2015 08/04/2015 Inactive Generic For:KLONOPIN 0.5 MG TABLET N O T I C E PRESCRIPTION PREVIOUSLY AUTHORIZED BY DOCTOR:JULES DELANEY Klonopin 0.5 mg tablet RxNorm: 683869 Tablet(s) TAKE 1 TABLET BY MOUTH EVERY 8 HOURS NEEDED 07/17/2015 07/16/2015 Inactive Generic For:KLONOPIN 0.5 MG TABLET N O T I C E PRESCRIPTION PREVIOUSLY AUTHORIZED BY DOCTOR:JULES DELANEY Klonopin 0.5 mg tablet RxNorm: 531013 TAKE 1 TABLET BY MOUTH EVERY 8 HOURS NEEDED 07/16/2015 07/16/2015 Inactive Generic For:KLONOPIN 0.5 MG TABLET N O T I C E PRESCRIPTION PREVIOUSLY AUTHORIZED BY DOCTOR:JULES DELANEY Lexapro 10 mg tablet RxNorm: 587309 1 Tablet(s) PO daily 05/11/2015 08/28/2015 Inactive propranolol 40 mg ta blet RxNorm: 252574 1 Tablet(s) PO prior to john n No Start Date 11/19/2015 Inactive Zithromax Z-Kevin 250 mg tablet RxNorm: 907233 1 Tablet(s) PO UD No Start Date 10/18/2015 Inactive 1 zpack Klonopin 0.5 mg tablet RxNorm: 523801 Tablet(s) PO as needed No Start Date 07/17/2015 Inactive Medication Administered No Medication Administered data Immunizations Vaccine Codes Date Status Tetanus, Diptheria, Pertussis CVX: 113 04/02/2015 completed Tetanus/Diptheria CVX: 113 04/02/2015 completed Assessments Condition Codes Effectiv e Dates Cellulitis of left toe ICD-10: L03.0 32 ICD-9: 681.11 03/26/2017 Dermatitis, unspecified ICD-10: L30. 9 ICD-9: 692.9 03/26/2017 Adjustment insomnia ICD-10: F51.02 ICD-9: 307.41 03/26/2017 Cough ICD-10: R05 ICD-9: 786.2 11/28/2016 Acute bronchitis due to other specified organisms ICD-10: J20.8 ICD-9: 466.0 11/18/2016 Acute laryngopharyngitis ICD-10: J06 .0 ICD-9: 465.0 11/18/2016 Generalized anxiety disorder ICD-10: F41.1 ICD-9: 300.00 05/06/2016 Anxiety ICD-9: 300.00 Well adult exam ICD-9: V70.0 05/11/2015 Reason For Visit Reason For Visit Effective Dates Notes foot pain 03/26/2017 chest congestion 11/28/2016 cough 11/18/2016 anxiety 05/06/2016 anxiety 04/21/2016 well man exam (40-65 years) 05/11/2015 Results No Results data Review of Systems System Result Effective Dates Constitutional recent illness 03/26/2017 Constitutional No anorexia [...] Result Effective Dates Notes Full Exam - General 1994 Constitutional general [...] Date TRIAMCINOLONE ACET I [place] NOS CPT-4: [id number] 11/18/2016 Vital Signs Date Vital 03/26/2017 Blood Pressure 1: 146/84 Code: 8480-6 BMI: 29.1 Code: 21532-7 Heart Rate 1: 87 bpm Height: 6'7" SpO2: 97% Weight: 258 lbs 11/28/2016 Blood Pressure 1: 136/68 Code: 8480-6 BMI: 28.8 Code: 64585-8 Heart Rate 1: 76 bpm Height: 6'7" SpO2: 97% Weight: 256 lbs 11/18/2016 Blood Pressure 1: 132/76 Code: 8480-6 BMI: 28.8 Code: 42383-4 Heart Rate 1: 97 bpm Height: 6'7" SpO2: 98% Temperature: 37.3 (C ) / 99.2 (F) Weight: 256 lbs 05/06/2016 Blood Pressure 1: 140/92 Code: 8480-6 BMI: 27.7 Code: 68602-6 Heart Rate 1: 103 bpm Height: 6'7" SpO2: 98% Weight: 246 lbs 04/21/2016 Blood Pressure 1: 152/80 Code: 8480-6 BMI: 28.1 Code: 09876-1 Heart Rate 1: 97 bpm Height: 6'7" SpO2: 98% Weight: 249 lbs 08/29/2015 Blood Pressure 1: 120/80 Code: 8480-6 BMI: 26.9 Code: 19608-7 Height: 6'7" Weight: 239 lbs 05/11/2015 Blood Pressure 1: 132/80 Code: 8480-6 Blood Pressure 2: 122/80 Code: 8480-6 BMI: 27.0 Code: 35173-8 Heart Rate 1: 92 bpm Height: 6'7" SpO2: 98% Weight: 240 lbs Functional Status No Functional Status data History of Present Illness Symptom Name Status Resu lt Effective Date Notes insomnia Quality constant 03/26/2017 None insomnia Quality [...] Encounters Encounter Performer Loca tion Codes Date ([id number]) [id number] EST. P ATIENT, LEVEL III Diagnosis: Cellulitis of left toe[ICD10: L03.032] Diagnosis: Adjustment insomnia[ICD10: F51.02] Diagnosis: Dermatitis, unspecified[ICD10: L30.9] Alise Crandall MD, [facility] CPT-4: 29018 03/26/2017 ([id number]) 25746 EST. P ATIENT, LEVEL III Diagnosis: Cough[ICD10: R05] Alise Crandall MD, [facility] CPT-4: 94769 11/28/2016 [id number] EST. PATIENT, LEVEL III Diagnosis: Acute laryngopharyngitis[ICD10: J06.0] Diagnosis: Acute bronchitis due to other specified organisms[ICD10: J20.8] Fay Crandall MD, [facility] CPT-4: 40845 11/18/2016 ([id number]) [id number] EST. P ATIENT, LEVEL III Diagnosis: Generalized anxiety disorder[ICD10: F41.1] Sveta Crandall MD, [facility] CPT-4: 17619 05/06/2016 ([id number]) 07462 EST. P ATIENT, LEVEL III Diagnosis: Generalized anxiety disorder[ICD10: F41.1] Sveta Crandall MD, [facility] CPT-4: 82298 04/21/2016 ([id number]) [id number] EST. P ATIENT, LEVEL III Diagnosis: Generalized anxiety disorder[ICD10: F41.1] Sveta Crandall MD, [facility] CPT-4: 77469 08/29/2015 ([id number]) PREV VISIT E ST AGE 40-64 Diagnosis: Well adult exam[ICD9: V70.0] Diagnosis: Anxiety[ICD9: 300.00] [facility] CPT-4: 03420 05/11/2015 Plan of Care Planned Activity Notes C odes Status Date Visit Plan: Cellulitis-left great toenai l-start oral antibiotics as directed, return to clinic as previously directed, call for acute change in symptoms, worsening redness, warmth, discharge.Eczema bilateral feet-rx for betamethasone cream provided and instructed on use-return if rash does not completely resolve- keep feet clean/dry and avoid excessive moisture Insomnia-Rx for ambien provided and instructed on use-take as needed only-patient verbalized understanding of plan. 03/26/2017 Appointment: Alise Collins WPtel: [phone] (15 min) Moderate 03/26/2017 Patient Education: Patient Medication Summary Completed 03/26/2017 Visit Plan: Cough-recent bronchitis-symp toms improving-recommend patient take augustine daily-monitor symptoms and call if they do not completely resolve or if any worse. Patient verbalized understanding of plan. 11/28/2016 Patient Education: Patient Medication Summary Completed 11/28/2016 Visit Plan: URI - Pt advised to increase fluids, vitamin C. Discussed natural and expected course of this diagnosis and need to alert me if symptoms do not follow expected course, or if any worse. RX sent to patient's pharmacy.Bronchitis - acute case of bronchitis identified. Pt has been given antibiotics, breathing treatments as appropriate, and pt has been instructed to call if symptoms are not improved, or if symptoms acutely worsen. 2016 Visit Plan: URI - Pt advised to increase fluids, vitamin C. Discussed natural and expected course of this diagnosis and need to alert me if symptoms do not follow expected course, or if any worse. RX sent to patient's pharmacy.Bronchitis - acute case of bronchitis identified. Pt has been given antibiotics, breathing treatments as appropriate, and pt has been instructed to call if symptoms are not improved, or if symptoms acutely worsen. 2016 Appointment: Fay Dave WPtel: [phone] [phone] (30 min) Complex 11/18/2016 Patient Education: Patient Medication Summary Completed 11/18/2016 Visit Plan: Anxiety - pt did not start o n mirtazapine - pt to use propranolol for his situational anxiety - klonopin for his anxiety/insomina - call if not improved. 05/06/2016 Patient Education: Patient Medication Summary Completed 05/06/2016 Patient Education: Obesity Completed 05/06/2016 Visit Plan: Anxiety - the patient has un controlled anxiety and will benefit from an SSRI on a daily basis to attempt control of the symptoms of anxiety (tachycardia, overwhelming sensations, stress, insomnia, etc). I also believe that the patient will benefit from very low dose of prn benzodiazepine. Pt is aware of the risks and benefits of treatment with the above medications. 2015 Patient Education: Patient Medication Summary Completed 04/21/2016 Patient Education: Obesity Completed 04/21/2016 Visit Plan: Chronic anxiety - the pt andrew s symptoms of chronic anxiety that has been fairly well controlled since the last office visit. The pt has expected periods of exacerbation with abatement of the symptoms with change in situational exposure. No change in current medications. 08/29/2015 Appointment: Sveta Crandall WPtel: [phone] [facility] (15 min) Moderate 08/29/2015 Patient Education: Patient Medication Summary Completed 08/29/2015 Appointment: Sveta Crandall WPtel: [phone] [facility] (15 min) Moderate 07/31/2015 Appointment: Sveta Crandall WPtel: [phone] [facility] (15 min) Moderate 07/05/2015 Visit Plan: Well Adult - pt was counsele d about diet, exercise, and encouraged to follow a heart healthy diet and increase activity level. The patient was instructed to RTC yearly for well adult exams and PRN for acute illnesses. The pt was also instructed to have yearly labs for check of cholesterol, thyroid, chem panel, CBC, and renal functioning.Anxiety - the patient has uncontrolled anxiety and will benefit from an SSRI on a daily basis to attempt control of the symptoms of anxiety (tachycardia, overwhelming sensations, stress, insomnia, etc). Pt is aware of the risks and benefits of treatment with the above medications. 05/11/2015 Appointment: New Patient 05/11/2015 Patient Education: Patient Medication Summary Completed 05/11/2015 Instructions Comment . Cough-recent bronc hitis-symptoms improving-recommend patient take augustine daily-monitor symptoms and call if they do [...] exposure. No change in current medications. . Anxiety - the zain ent has [...] only- patient verbalized understanding of plan. . Anxiety - pt did n ot start on mirtazapine - pt to use propranolol for his situational anxiety - klonopin for his anxiety/insomina - call if not improved. . Well Adult - pt wa s [...]
--- OUTSIDE RECORDS SUMMARY | 2020-06-10 16:21 | XMS REPORT | CCD ---
Author Author Aldair Collins Organization Sveta Crandall MD, [facility] Address [address] [place] [address] Phone Care Team Providers Care Assistant Chief Train Dispatcher Name Role Phone PP Unavailable CCM Unavailable Summary Purpose Interface Exchange Insurance Providers Payer name Policy type / Coverage type Covered democrat ID Effective Begin Date Effective End Date Blue Cross Blue Shield [facility] e Cross/Blue Shield [id number] Unknown Unk nown Family history Father Diagnosis Age At Onset Hypertension Unknown Mother Diagnosis Age At Onset alcohol dependence Unknown Skin cancer Unknown Cancer Unknown Depression Unknown Social History Social History Element Codes Description Effective Dates Marital status Unknown M daniela Coello 05/03/2018 Number of children Unknown 2 05/11/[address]: 832640230 Never smoker 05/11/2015 Alcohol history Unknown occasionally drinks alcohol 05/11/2015 Allergies, Adverse Reactions, Alerts Substance Reaction Codes Entered Date Inactivated Date Status * NO KNOWN DRUG SANTANA RGIES Unknown 08/29/2015 No Inactive Date Active Past Medical History Illness Codes Condition Status Onset Date Resolved Date Acute recurrent maxi llary sinusitis ICD-9: 461.0 [...] Condition Codes Effectiv e Dates Condition Status Acute recurrent maxi llary sinusitis ICD-9: 461.0 [...] Date Stop Date Sta tus Fill Instructions Lexapro 10 mg tablet RxNorm: 414908 1 Tablet(s) PO QHS 03/22/2019 03/15/2020 Active Keflex 500 mg capsule RxNorm: 433203 1 Capsule(s) PO TID 02/10/2019 02/19/2019 Inactive Kenalog 40 mg/mL luis pension for injection RxNorm: 4465689 Milliliter(s) Inj 01/12/2019 01/12/2019 In active Levaquin 500 mg tablet RxNorm: 429432 1 Tablet(s) PO daily 01/12/2019 01/18/2019 Inactive prednisone 10 mg tablet RxNorm: 024858 Tablet(s) PO 01/12/2019 03/21/2019 Inactive 60mg x 2 days, then 50mg x 2 days, then 40mg x 2 days, then 30mg x 2 days, then 20mg x 2 days, then 10mg x 2 days, then 5mg every other day x 2 doses. Singulair 10 mg tablet RxNorm: 983321 1 Tablet(s) PO QHS 01/12/2019 02/10/2019 Inactive ceftriaxone 500 mg s olution for injection RxNorm: 6812767 Inj 01/12/2019 01/12/2019 Inactive Sonia-D 12 Hour 60 mg-120 mg tablet,extended release RxNorm: 568632 1 Tablet(s) PO daily 12/29/2018 01/27/2019 Inactive Lexapro 10 mg tablet RxNorm: 799853 1.5 Tablet(s) PO QHS 12/29/2018 03/21/2019 Inactive Bactrim DS 800 mg-16 0 mg tablet RxNorm: 372690 1 Tablet(s) PO BID 12/29/2018 01/07/2019 Inactive Symbicort 160 mcg-4. 5 mcg/actuation HFA aerosol inhaler RxNorm: 5325019 2 Puff(s) INH BID 12/28/2018 No Stop Date Active Xanax 0.25 mg tablet RxNorm: 737069 1 Tablet(s) PO TID as needed anxiety 11/25/2018 01/23/2019 In active Lexapro 10 mg tablet RxNorm: 928101 1.5 Tablet(s) PO QHS 11/23/2018 12/28/2018 Inactive propranolol 40 mg ta blet RxNorm: 454905 Tablet(s) TAKE 1 TABL ET BY MOUTH PRIOR TO EVENT NEEDED 09/20/2018 12/08/2018 Inactive Lexapro 10 mg tablet RxNorm: 673251 1 Tablet(s) PO QHS 08/30/2018 11/22/2018 Inactive Lexapro 10 mg tablet RxNorm: 890841 1 Tablet(s) PO QHS 05/03/2018 08/29/2018 Inactive cyclobenzaprine 5 mg tablet RxNorm: 232334 1 Tablet(s) PO TID as needed 01/05/2018 01/09/2018 In active cyclobenzaprine 5 mg tablet RxNorm: 177365 1 Tablet(s) PO TID as needed 01/05/2018 01/04/2018 In active propranolol 40 mg ta blet RxNorm: 135904 TAKE 1 TABLET BY MOUT H PRIOR TO EVENT NEEDED 07/24/2017 10/11/2017 Inactive Generic For:INDERAL 40 MG TABLET 2016 9:51:34 AM Prozac 10 mg capsule RxNorm: 889104 1 Capsule(s) PO daily may increase after a few weeks if needed 04/09/2017 04/08/2017 Inactive Pt to call if he wants dose increased Prozac 10 mg capsule RxNorm: 035244 1 Capsule(s) PO daily may increase after a few weeks if needed 04/09/2017 05/02/2018 Inactive Pt to call if he wants dose increased Ambien 10 mg tablet RxNorm: 309772 1 Tablet(s) PO HS PRN 03/26/2017 05/02/2018 Inactive betamethasone johnny te 0.1 % topical cream RxNorm: 497529 1 Application TOP BID 03/26/2017 04/08/2017 In active Keflex 500 mg capsule RxNorm: 539468 1 Capsule(s) PO TID 03/26/2017 04/01/2017 Inactive Klonopin 0.5 mg tablet RxNorm: 454113 Tablet(s) TAKE 1 TABLET BY MOUTH EVERY 8 HOURS NEEDED 01/28/2017 02/26/2017 Inactive prednisone 10 mg tablet RxNorm: 717732 Tablet(s) PO UD 11/18/2016 05/02/2018 Inactive 6,5,4,3,2,1 Zithromax Z-Kevin 250 mg tablet RxNorm: 057298 1 Tablet(s) PO UD 11/18/2016 01/27/2017 Inactive 1 rafatpajesus Klonopin 0.5 mg tablet RxNorm: 308745 Tablet(s) TAKE 1 TABLET BY MOUTH EVERY 8 HOURS NEEDED 07/09/2016 08/05/2016 Inactive Generic For:KLONOPIN 0.5 MG TABLET N O T I C E PRESCRIPTION PREVIOUSLY AUTHORIZED BY DOCTOR:JULES DELANEY mirtazapine 7.5 mg t ablet RxNorm: 585750 1 Tablet(s) PO QHS 07/04/2016 04/08/2017 Inactive Belsomra 10 mg tablet RxNorm: 7558466 1 Tablet(s) PO QHS 05/30/2016 05/29/2016 Inactive Belsomra 10 mg tablet RxNorm: 4157587 1 Tablet(s) PO QHS as needed 05/30/2016 03/25/2017 In active propranolol 40 mg ta blet RxNorm: 542965 Tablet(s) 1 - 1.5 Tab let(s) PO prior to event as needed 05/06/2016 07/23/2017 Inactive mirtazapine 15 mg ta blet RxNorm: 062159 1 Tablet(s) PO QHS 04/30/2016 05/29/2016 Inactive amitriptyline 25 mg tablet RxNorm: 292824 1 Tablet(s) PO QPM 04/21/2016 04/29/2016 Inactive propranolol 40 mg ta blet RxNorm: 963681 1 Tablet(s) PO prior to event as needed 04/10/2016 05/05/2016 In active Klonopin 0.5 mg tablet RxNorm: 358600 Tablet(s) TAKE 1 TABLET BY MOUTH EVERY 8 HOURS NEEDED 02/29/2016 03/18/2016 Inactive Generic For:KLONOPIN 0.5 MG TABLET N O T I C E PRESCRIPTION PREVIOUSLY AUTHORIZED BY DOCTOR:JULES DELANEY Sonia-D 24 Hour 18 0 mg-240 mg tablet,extended release RxNorm: 772567 1 Tablet(s) PO daily 01/21/2016 01/20/2016 Inactive Sonia-D 24 Hour 18 0 mg-240 mg tablet,extended release RxNorm: 774895 1 Tablet(s) PO daily 01/21/2016 12/28/2018 Inactive propranolol 40 mg ta blet RxNorm: 476402 1 Tablet(s) PO prior to event as needed 11/20/2015 04/09/2016 In active Zithromax Z-Kevin 250 mg tablet RxNorm: 888084 1 Tablet(s) PO UD 10/19/2015 05/05/2016 Inactive 1 zpack Klonopin 0.5 mg tablet RxNorm: 379983 Tablet(s) TAKE 1 TABLET BY MOUTH EVERY 8 HOURS NEEDED 07/17/2015 08/04/2015 Inactive Generic For:KLONOPIN 0.5 MG TABLET N O T I C E PRESCRIPTION PREVIOUSLY AUTHORIZED BY DOCTOR:JULES DELANEY Klonopin 0.5 mg tablet RxNorm: 888620 Tablet(s) TAKE 1 TABLET BY MOUTH EVERY 8 HOURS NEEDED 07/17/2015 07/16/2015 Inactive Generic For:KLONOPIN 0.5 MG TABLET N O T I C E PRESCRIPTION PREVIOUSLY AUTHORIZED BY DOCTOR:JULES DELANEY Klonopin 0.5 mg tablet RxNorm: 829956 TAKE 1 TABLET BY MOUTH EVERY 8 HOURS NEEDED 07/16/2015 07/16/2015 Inactive Generic For:KLONOPIN 0.5 MG TABLET N O T I C E PRESCRIPTION PREVIOUSLY AUTHORIZED BY DOCTOR:JULES DELANEY Lexapro 10 mg tablet RxNorm: 081933 1 Tablet(s) PO daily 05/11/2015 08/28/2015 Inactive propranolol 40 mg ta blet RxNorm: 423090 1 Tablet(s) PO prior to john n No Start Date 11/19/2015 Inactive Zithromax Z-Kevin 250 mg tablet RxNorm: 621406 1 Tablet(s) PO UD No Start Date 10/18/2015 Inactive 1 zpack Klonopin 0.5 mg tablet RxNorm: 422449 Tablet(s) PO as needed No Start Date 07/17/2015 Inactive Symbicort 160 mcg-4. 5 mcg/actuation HFA aerosol inhaler RxNorm: 3759202 2 Puff(s) INH BID No Start Date 12/27/2018 Inactive Medication Administered Medication Codes Instruc tions Start Date Status Kenalog 40 mg/mL suspension for injection RxNorm: 6516107 Milliliter 01/12/2019 No longer Active ceftriaxone 500 mg solution for injection RxNorm: 2430021 01/12/2019 No longer A ctive Immunizations Vaccine Codes Date Status Tetanus, Diptheria, Pertussis CVX: 113 04/02/2015 completed Tetanus/Diptheria CVX: 113 04/02/2015 completed Assessments Condition Codes Effectiv e Dates Acute recurrent maxillary sinusitis ICD-10: J01.01 ICD-9: [...] Visit Reason For Visit Effective Dates Notes anxiety 03/22/2019 cough 02/10/2019 cough 01/12/2019 cough 12/29/2018 anxiety 09/20/2018 anxiety 06/09/2018 well man exam (40-65 years) 05/03/2018 foot pain 03/26/2017 chest congestion 11/28/2016 cough 11/18/2016 anxiety 05/06/2016 anxiety 04/21/2016 well man exam (40-65 years) 05/11/2015 Results No Results data Review of Systems System Result Effective Dates Constitutional recent illness 03/22/2019 Constitutional No anorexia [...] CPT-4: J3301 11/18/2016 Vital Signs Date Vital 03/22/2019 Blood Pressure 1: 140/86 Code: 8480-6 BMI: 30.9 Code: 37455-2 Heart Rate 1: 94 bpm Height: 6'7" SpO2: 95% Weight: 274 lbs 6 oz 02/10/2019 Blood Pressure 1: 154/110 Code: 8480-6 Blood Pressure 1: 142/88 Code: 8480-6 BMI: 30.1 Code: 78139-6 Heart Rate 1: 84 bpm Height: 6'7" Height: SpO2: 98% Weight: 267 lbs Weight: 01/12/2019 Blood Pressure 1: 144/78 Code: 8480-6 BMI: 30.1 Code: 81738-1 Heart Rate 1: 102 bpm Height: 6'7" SpO2: 98% Weight: 267 lbs 12/29/2018 Blood Pressure 1: 138/88 Code: 8480-6 BMI: 30.1 Code: 62164-5 Heart Rate 1: 89 bpm Height: 6'7" SpO2: 98% Temperature: 36.5 (C ) / 97.7 (F) Weight: 267 lbs 09/20/2018 Blood Pressure 1: 132/80 Code: 8480-6 BMI: 29.5 Code: 84986-3 Heart Rate 1: 96 bpm Height: 6'7" SpO2: 98% Weight: 262 lbs 06/09/2018 Blood Pressure 1: 142/84 Code: 8480-6 BMI: 29.7 Code: 96052-5 Heart Rate 1: 89 bpm Height: 6'7" SpO2: 96% Weight: 264 lbs 05/03/2018 Blood Pressure 1: 150/78 Code: 8480-6 BMI: 28.8 Code: 33013-1 Heart Rate 1: 96 bpm Height: 6'7" SpO2: 97% Weight: 256 lbs 03/26/2017 Blood Pressure 1: 146/84 Code: 8480-6 BMI: 29.1 Code: 18451-3 Heart Rate 1: 87 bpm Height: 6'7" SpO2: 97% Weight: 258 lbs 11/28/2016 Blood Pressure 1: 136/68 Code: 8480-6 BMI: 28.8 Code: 01415-0 Heart Rate 1: 76 bpm Height: 6'7" SpO2: 97% Weight: 256 lbs 11/18/2016 Blood Pressure 1: 132/76 Code: 8480-6 BMI: 28.8 Code: 44883-6 Heart Rate 1: 97 bpm Height: 6'7" SpO2: 98% Temperature: 37.3 (C ) / 99.2 (F) Weight: 256 lbs 05/06/2016 Blood Pressure 1: 140/92 Code: 8480-6 BMI: 27.7 Code: 45089-5 Heart Rate 1: 103 bpm Height: 6'7" SpO2: 98% Weight: 246 lbs 04/21/2016 Blood Pressure 1: 152/80 Code: 8480-6 BMI: 28.1 Code: 88857-1 Heart Rate 1: 97 bpm Height: 6'7" SpO2: 98% Weight: 249 lbs 08/29/2015 Blood Pressure 1: 120/80 Code: 8480-6 BMI: 26.9 Code: 43668-6 Height: 6'7" Weight: 239 lbs 05/11/2015 Blood Pressure 1: 132/80 Code: 8480-6 Blood Pressure 2: 122/80 Code: 8480-6 BMI: 27.0 Code: 00721-5 Heart Rate 1: 92 bpm Height: 6'7" SpO2: 98% Weight: 240 lbs Functional Status No Functional Status data History of Present Illness Symptom Name Status Resu lt Effective Date Notes Quality chronic 03/22/2019 None Quality intermittent 03/22/2019 [...] Encounters Encounter Performer Loca tion Codes Date ([id number]) [id number] EST. P ATLIBBY, LEVEL III Diagnosis: Acute recurrent maxillary sinusitis[ICD10: J01.01] Diagnosis: Generalized anxiety disorder[ICD10: F41.1] Sveta Crandall MD, [facility] CPT-4: 29213 03/22/2019 ([id number]) 40618 EST. P VALERIANO, LEVEL III Diagnosis: Phlebitis and thrombophlebitis of superficial vessels of right lower extremity[ICD10: I80.01] Diagnosis: Effusion, right foot[ICD10: M25.474] Diagnosis: Cough[ICD10: R05] Diagnosis: Other allergic rhinitis[ICD10: J30.89] Sveta Crandall MD, [facility] CPT-4: 21198 02/10/2019 [id number] EST. PATIENT, LEVEL IV Diagnosis: Acute bronchitis due to other specified organisms[ICD10: J20.8] Diagnosis: Acute laryngopharyngitis[ICD10: J06.0] Diagnosis: Other allergic rhinitis[ICD10: J30.89] Fay Crandall MD, [facility] CPT-4: 69074 01/12/2019 ([id number]) 41334 EST. P ATIENT, LEVEL III Diagnosis: Acute laryngopharyngitis[ICD10: J06.0] Diagnosis: Acute recurrent maxillary sinusitis[ICD10: J01.01] Diagnosis: Cough[ICD10: R05] Diagnosis: Generalized anxiety disorder[ICD10: F41.1] Sveta Crandall MD, [facility] CPT-4: 52348 12/29/2018 ([id number]) 94366 EST. P ATIENT, LEVEL III Diagnosis: Generalized anxiety disorder[ICD10: F41.1] Sveta Crandall MD, [facility] CPT-4: 16768 09/20/2018 ([id number]) 56565 EST. P ATIENT, LEVEL III Diagnosis: Generalized anxiety disorder[ICD10: F41.1] Sveta Crandall MD, [facility] CPT-4: 55606 06/09/2018 ([id number]) PREV VISIT E ST AGE 40-64 Diagnosis: Encounter for general adult medical examination without abnormal findings[ICD10: Z00.00] Sveta Crandall MD, [facility] CPT-4: 57464 05/03/2018 ([id number]) 95165 EST. P ATIENT, LEVEL III Diagnosis: Cellulitis of left toe[ICD10: L03.032] Diagnosis: Adjustment insomnia[ICD10: F51.02] Diagnosis: Dermatitis, unspecified[ICD10: L30.9] Alise Crandall MD, [facility] CPT-4: 69170 03/26/2017 ([id number]) 45815 EST. P ATIENT, LEVEL III Diagnosis: Cough[ICD10: R05] Alise Crandall MD, [facility] CPT-4: 11886 11/28/2016 [id number] EST. PATIENT, LEVEL III Diagnosis: Acute laryngopharyngitis[ICD10: J06.0] Diagnosis: Acute bronchitis due to other specified organisms[ICD10: J20.8] Fay Crandall MD, [facility] CPT-4: 46198 11/18/2016 ([id number]) 25370 EST. P ATIENT, LEVEL III Diagnosis: Generalized anxiety disorder[ICD10: F41.1] Sveta Crandall MD, [facility] CPT-4: 10186 05/06/2016 ([id number]) 05746 EST. P ATIENT, LEVEL III Diagnosis: Generalized anxiety disorder[ICD10: F41.1] Sveta Crandall MD, [facility] CPT-4: 59294 04/21/2016 ([id number]) 11422 EST. P ATIENT, LEVEL III Diagnosis: Generalized anxiety disorder[ICD10: F41.1] Sveta Crandall MD, [facility] CPT-4: 91271 08/29/2015 ([id number]) PREV VISIT E ST AGE 40-64 Diagnosis: Well adult exam[ICD9: V70.0] Diagnosis: Anxiety[ICD9: 300.00] Alise Crandall MD, [facility] CPT-4: 05732 05/11/2015 Plan of Care Planned Activity Notes C odes Status Date Visit Plan: Sinusitis - Pt has acut e infection - pain in face, maxillary region, Pt informed to use decongestant, RX given to patient, sinus rinses also recommended. Call if symptoms do not show improvement. decadr on nasal spray at [facility] - if not improvement in one week - then ct scan of sinuses. tarcy 03/22/2019 Patient Education: Patient Medication Summary Completed [...] worse. 02/10/2019 Appointment: Alise Collins WPtel: [phone] [phone] (30 min) Complex 02/10/2019 Patient Education: Patient [...] allergy spray. 01/12/2019 Appointment: Fay [facility] ([facility] Complex 01/12/2019 Patient Education: Patient [...] pharmacy 12/29/2018 Appointment[phone] (15 min) Moderate 12/29/2018 Patient Education: Patient [...] current medications. 09/20/2018 Appointment: Sveta Crandall WPtel: [facility] [[email or web address] (15 min) Moderate 09/20/2018 Patient Education: Patient Medication Summary Completed 09/20/2018 Visit Plan: Anxiety and Depression - the pt has symptoms have been fairly well controlled since the last office visit. The pt has expected periods of exacerbation with abatement of the symptoms with change in situa tional exposure. No change in current medications. 06/09/2018 Appointment: Sveta Crandall WPtel: [facility] (15 min) Moderate 06/09/2018 Patient Education: Patient [...] on lexapro. 05/03/2018 Appointment: Sveta Crandall WPtel: [email or web address] (15 min) Moderate 05/03/2018 Patient Education: Patient [...] plan. 03/26/2017 Appointment: Alise Collins WPtel: [phone] [facility] (15 min) Moderate 03/26/2017 Patient Education: Patient [...] acutely worsen. 11/18/2016 Appointment: Fay Dave [facility] [phone] [facility] (30 min) Complex 11/18/2016 Patient Education: [...] medications. 08/29/2015 Appointment: Sveta Crandall WPtel: [phone] (15 min) Moderate 08/29/2015 Patient Education: Patient Medication Summary Completed 08/29/2015 Appointment: Sveta Crandall WPtel: [phone] (15 min) Moderate 07/31/2015 Appointment: Sveta Crandall WPtel: [phone] (15 min) Moderate 07/05/2015 Visit Plan: [...] . Cough-recent bronc hitis-symptoms improving-recommend patient take sonia daily-monitor symptoms [...] not show improvement. decadron nasal spray at [facility] - if not improvement in one week - then ct scan of sinuses. cologuard . Superficial thromb ophlebitis -patient sent for [...]
--- OUTSIDE RECORDS SUMMARY | 2020-06-10 16:22 | XMS REPORT | CCD ---
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 Name Role Phone PP Unavailable CCM Unavailable Summary Purpose Interface Exchange Insurance Providers Payer name Policy type / Coverage type Covered libertarian ID Effective Begin Date Effective End Date Blue Cross Blue Shield [facility] e Cross/Blue Shield [id number] Unknown Unk nown Family history Father Diagnosis Age At Onset Hypertension Unknown Mother Diagnosis Age At Onset alcohol dependence Unknown Skin cancer Unknown Cancer Unknown Depression Unknown Social History Social History Element Codes Description Effective Dates Marital status Unknown M dnaiela Coello 05/03/2018 Number of children Unknown 2 05/11/[address]: 746817147 Never smoker 05/11/2015 Alcohol history Unknown occasionally drinks alcohol 05/11/2015 Allergies, Adverse Reactions, Alerts Substance Reaction Codes Entered Date Inactivated Date Status * NO KNOWN DRUG SANTANA RGIES Unknown 08/29/2015 No Inactive Date Active Past Medical History Illness Codes Condition Status Onset Date Resolved Date Cough ICD-9: 786.2 ICD-10: R05 Active 11/28/2016 [...] ICD-9: 465.0 ICD-10: J06.0 Active 11/17/2016 Unknown Acute recurrent maxi llary sinusitis ICD-9: 461.0 ICD-10: J01.01 Active 12/29/2018 Unknown Generalized anxiety disorder ICD-9: 300.00 ICD-10: F41.1 Active 05/10/2015 Unknown Encounter for genera l adult medical [...] Condition Codes Effectiv e Dates Condition Status Cough ICD-9: 786.2 ICD-10: R05 11/28/2016 Active [...] itis ICD-9: 465.0 ICD-10: J06.0 11/17/2016 Active Acute recurrent maxi llary sinusitis ICD-9: 461.0 ICD-10: J01.01 12/29/2018 Active Generalized anxiety disorder ICD-9: 300.00 ICD-10: F41.1 05/10/2015 Active Encounter for genera l adult medical [...] Fill Instructions Keflex 500 mg capsule RxNorm: 880639 1 Capsule(s) PO TID 02/10/2019 02/19/2019 Active prednisone 10 mg tablet RxNorm: 758651 Tablet(s) PO 01/12/2019 No Stop Date Active 60mg x 2 days, then 50mg x 2 days, then 40mg x 2 days, then 30mg x 2 days, then 20mg x 2 days, then 10mg x 2 days, then 5mg every other day x 2 doses. Kenalog 40 mg/mL luis pension for injection RxNorm: 5088647 Milliliter(s) Inj 01/12/2019 01/12/2019 In active Levaquin 500 mg tablet RxNorm: 007214 1 Tablet(s) PO daily 01/12/2019 01/18/2019 Inactive Singulair 10 mg tablet RxNorm: 371018 1 Tablet(s) PO QHS 01/12/2019 02/10/2019 Inactive ceftriaxone 500 mg s olution for injection RxNorm: 0707463 Inj 01/12/2019 01/12/2019 Inactive Lexapro 10 mg tablet RxNorm: 814930 1.5 Tablet(s) PO QHS 12/29/2018 12/23/2019 Active Sonia-D 12 Hour 60 mg-120 mg tablet,extended release RxNorm: 032395 1 Tablet(s) PO daily 12/29/2018 01/27/2019 Inactive Bactrim DS 800 mg-16 0 mg tablet RxNorm: 628159 1 Tablet(s) PO BID 12/29/2018 01/07/2019 Inactive Symbicort 160 mcg-4. 5 mcg/actuation HFA aerosol inhaler RxNorm: 4671286 2 Puff(s) INH BID 12/28/2018 No Stop Date Active Xanax 0.25 mg tablet RxNorm: 241214 1 Tablet(s) PO TID as needed anxiety 11/25/2018 01/23/2019 In active Lexapro 10 mg tablet RxNorm: 203756 1.5 Tablet(s) PO QHS 11/23/2018 12/28/2018 Inactive propranolol 40 mg ta blet RxNorm: 362979 Tablet(s) TAKE 1 TABL ET BY MOUTH PRIOR TO EVENT NEEDED 09/20/2018 12/08/2018 Inactive Lexapro 10 mg tablet RxNorm: 935452 1 Tablet(s) PO QHS 08/30/2018 11/22/2018 Inactive Lexapro 10 mg tablet RxNorm: 521146 1 Tablet(s) PO QHS 05/03/2018 08/29/2018 Inactive cyclobenzaprine 5 mg tablet RxNorm: 391849 1 Tablet(s) PO TID as needed 01/05/2018 01/09/2018 In active cyclobenzaprine 5 mg tablet RxNorm: 550587 1 Tablet(s) PO TID as needed 01/05/2018 01/04/2018 In active propranolol 40 mg ta blet RxNorm: 881251 TAKE 1 TABLET BY MOUT H PRIOR TO EVENT NEEDED 07/24/2017 10/11/2017 Inactive Generic For:INDERAL 40 MG TABLET 2016 9:51:34 AM Prozac 10 mg capsule RxNorm: 304284 1 Capsule(s) PO daily may increase after a few weeks if needed 04/09/2017 04/08/2017 Inactive Pt to call if he wants dose increased Prozac 10 mg capsule RxNorm: 099623 1 Capsule(s) PO daily may increase after a few weeks if needed 04/09/2017 05/02/2018 Inactive Pt to call if he wants dose increased Ambien 10 mg tablet RxNorm: 438208 1 Tablet(s) PO HS PRN 03/26/2017 05/02/2018 Inactive betamethasone johnny te 0.1 % topical cream RxNorm: 039748 1 Application TOP BID 03/26/2017 04/08/2017 In active Keflex 500 mg capsule RxNorm: 865504 1 Capsule(s) PO TID 03/26/2017 04/01/2017 Inactive Klonopin 0.5 mg tablet RxNorm: 655292 Tablet(s) TAKE 1 TABLET BY MOUTH EVERY 8 HOURS NEEDED 01/28/2017 02/26/2017 Inactive prednisone 10 mg tablet RxNorm: 158117 Tablet(s) PO UD 11/18/2016 05/02/2018 Inactive 6,5,4,3,2,1 Zithromax Z-Kevin 250 mg tablet RxNorm: 099302 1 Tablet(s) PO UD 11/18/2016 01/27/2017 Inactive 1 fadi Klonopin 0.5 mg tablet RxNorm: 143094 Tablet(s) TAKE 1 TABLET BY MOUTH EVERY 8 HOURS NEEDED 07/09/2016 08/05/2016 Inactive Generic For:KLONOPIN 0.5 MG TABLET N O T I C E PRESCRIPTION PREVIOUSLY AUTHORIZED BY DOCTOR:JULES DELANEY mirtazapine 7.5 mg t ablet RxNorm: 812824 1 Tablet(s) PO QHS 07/04/2016 04/08/2017 Inactive Belsomra 10 mg tablet RxNorm: 8897264 1 Tablet(s) PO QHS 05/30/2016 05/29/2016 Inactive Belsomra 10 mg tablet RxNorm: 2219831 1 Tablet(s) PO QHS as needed 05/30/2016 03/25/2017 In active propranolol 40 mg ta blet RxNorm: 759341 Tablet(s) 1 - 1.5 Tab let(s) PO prior to event as needed 05/06/2016 07/23/2017 Inactive mirtazapine 15 mg ta blet RxNorm: 841421 1 Tablet(s) PO QHS 04/30/2016 05/29/2016 Inactive amitriptyline 25 mg tablet RxNorm: 126410 1 Tablet(s) PO QPM 04/21/2016 04/29/2016 Inactive propranolol 40 mg ta blet RxNorm: 744722 1 Tablet(s) PO prior to event as needed 04/10/2016 05/05/2016 In active Klonopin 0.5 mg tablet RxNorm: 834884 Tablet(s) TAKE 1 TABLET BY MOUTH EVERY 8 HOURS NEEDED 02/29/2016 03/18/2016 Inactive Generic For:KLONOPIN 0.5 MG TABLET N O T I C E PRESCRIPTION PREVIOUSLY AUTHORIZED BY DOCTOR:JULES DELANEY Sonia-D 24 Hour 18 0 mg-240 mg tablet,extended release RxNorm: 885692 1 Tablet(s) PO daily 01/21/2016 01/20/2016 Inactive Sonia-D 24 Hour 18 0 mg-240 mg tablet,extended release RxNorm: 745219 1 Tablet(s) PO daily 01/21/2016 12/28/2018 Inactive propranolol 40 mg ta blet RxNorm: 233118 1 Tablet(s) PO prior to event as needed 11/20/2015 04/09/2016 In active Zithromax Z-Kevin 250 mg tablet RxNorm: 602625 1 Tablet(s) PO UD 10/19/2015 05/05/2016 Inactive 1 zpack Klonopin 0.5 mg tablet RxNorm: 526602 Tablet(s) TAKE 1 TABLET BY MOUTH EVERY 8 HOURS NEEDED 07/17/2015 08/04/2015 Inactive Generic For:KLONOPIN 0.5 MG TABLET N O T I C E PRESCRIPTION PREVIOUSLY AUTHORIZED BY DOCTOR:JULES DELANEY Klonopin 0.5 mg tablet RxNorm: 039519 Tablet(s) TAKE 1 TABLET BY MOUTH EVERY 8 HOURS NEEDED 07/17/2015 07/16/2015 Inactive Generic For:KLONOPIN 0.5 MG TABLET N O T I C E PRESCRIPTION PREVIOUSLY AUTHORIZED BY DOCTOR:JULES DELANEY [phone] Klonopin 0.5 mg tablet RxNorm: 422496 TAKE 1 TABLET BY MOUTH EVERY 8 HOURS NEEDED 07/16/2015 07/16/2015 Inactive Generic For:KLONOPIN 0.5 MG TABLET N O T I C E PRESCRIPTION PREVIOUSLY AUTHORIZED BY DOCTOR:JULES DELANEY Lexapro 10 mg tablet RxNorm: 485769 1 Tablet(s) PO daily 05/11/2015 08/28/2015 Inactive propranolol 40 mg ta blet RxNorm: 346573 1 Tablet(s) PO prior to john n No Start Date 11/19/2015 Inactive Zithromax Z-Kevin 250 mg tablet RxNorm: 718504 1 Tablet(s) PO UD No Start Date 10/18/2015 Inactive 1 zpack Klonopin 0.5 mg tablet RxNorm: 258684 Tablet(s) PO as needed No Start Date 07/17/2015 Inactive Symbicort 160 mcg-4. 5 mcg/actuation HFA aerosol inhaler RxNorm: 3536061 2 Puff(s) INH BID No Start Date 12/27/2018 Inactive Medication Administered Medication Codes Instruc tions Start Date Status Kenalog 40 mg/mL suspension for injection RxNorm: 2958745 Milliliter 01/12/2019 No longer Active ceftriaxone 500 mg solution for injection RxNorm: 4309908 01/12/2019 No longer A ctive Immunizations Vaccine Codes Date Status Tetanus, Diptheria, Pertussis CVX: 113 04/02/2015 completed Tetanus/Diptheria CVX: 113 04/02/2015 completed Assessments Condition Codes Effectiv e Dates Other allergic rhinitis ICD-10: J30. 89 ICD-9: 477.8 02/10/2019 Phlebitis and thrombophlebitis of superf icial vessels of right lower extremity ICD-10: I80.01 ICD-9: 451.0 02/10/2019 Cough ICD-10: R05 ICD-9: 786.2 02/10/2019 Effusion, right foot ICD-10: M25.474 ICD-9: 719.07 02/10/2019 Acute laryngopharyngitis ICD-10: J06 .0 ICD-9: 465.0 01/12/2019 Acute bronchitis due to other specified organisms ICD-10: J20.8 ICD-9: 466.0 01/12/2019 Acute recurrent maxillary sinusitis ICD-10: J01.01 ICD-9: 461.0 12/29/2018 Generalized anxiety disorder ICD-10: F41.1 ICD-9: 300.00 12/29/2018 Encounter for general adult medical exam ination without abnormal findings ICD-10: Z00.00 ICD-9: V70.0 05/03/2018 Cellulitis of left toe ICD-10: L03.0 32 ICD-9: 681.11 03/26/2017 Dermatitis, unspecified ICD-10: L30. 9 ICD-9: 692.9 03/26/2017 Adjustment insomnia ICD-10: F51.02 ICD-9: 307.41 03/26/2017 Anxiety ICD-9: 300.00 Well adult exam ICD-9: V70.0 05/11/2015 Reason For Visit Reason For Visit Effective Dates Notes cough 02/10/2019 cough 01/12/2019 cough 12/29/2018 anxiety 09/20/2018 anxiety 06/09/2018 well man exam (40-65 years) 05/03/2018 foot pain 03/26/2017 chest congestion 11/28/2016 cough 11/18/2016 anxiety 05/06/2016 anxiety 04/21/2016 well man exam (40-65 years) 05/11/2015 Results No Results data Review of Systems System Result Effective Dates Constitutional No chills 02/10/2019 Constitutional No diaphoresis [...] No alteration of consciousness 05/03/2018 Psychiatric anxiety 12/2017 Constitutional recent illness 03/26/2017 Constitutional No [...] No alteration of consciousness 05/06/2016 Psychiatric anxiety 070 03/2016 Constitutional No recent illness 04/21/2016 Constitutional [...] Result Effective Dates Notes Full Exam - ENT Constitutional general appearance [...] normal 01/12/2019 None Full Exam - General 1995 Ears/Nose/Throat otoscopic exam Overall: external auditory canals clear 01/12/2019 None Full Exam - General 1994 Ears/Nose/Throat otoscopic exam Tympanic membrane: air-fluid level 01/12/2019 None Full Exam - General 1995 Ears/Nose/Throat lips/teeth/gingiva Overall: benign lips 01/12/2019 None Full Exam - General 1995 Ears/Nose/Throat oral cavity/pharynx/larynx Overall: oral mucosa clear [...] CPT-4: J3301 11/18/2016 Vital Signs Date Vital 02/10/2019 Blood Pressure 1: 154/110 Code: 8480-6 Blood Pressure 1: 142/88 Code: 8480-6 BMI: 30.1 Code: 10222-6 Heart Rate 1: 84 bpm Height: 6'7" Height: SpO2: 98% Weight: 267 lbs Weight: 01/12/2019 Blood Pressure 1: 144/78 Code: 8480-6 BMI: 30.1 Code: 37889-0 Heart Rate 1: 102 bpm Height: 6'7" SpO2: 98% Weight: 267 lbs 12/29/2018 Blood Pressure 1: 138/88 Code: 8480-6 BMI: 30.1 Code: 38366-2 Heart Rate 1: 89 bpm Height: 6'7" SpO2: 98% Temperature: 36.5 (C ) / 97.7 (F) Weight: 267 lbs 09/20/2018 Blood Pressure 1: 132/80 Code: 8480-6 BMI: 29.5 Code: 34770-8 Heart Rate 1: 96 bpm Height: 6'7" SpO2: 98% Weight: 262 lbs 06/09/2018 Blood Pressure 1: 142/84 Code: 8480-6 BMI: 29.7 Code: 76939-7 Heart Rate 1: 89 bpm Height: 6'7" SpO2: 96% Weight: 264 lbs 05/03/2018 Blood Pressure 1: 150/78 Code: 8480-6 BMI: 28.8 Code: 71293-5 Heart Rate 1: 96 bpm Height: 6'7" SpO2: 97% Weight: 256 lbs 03/26/2017 Blood Pressure 1: 146/84 Code: 8480-6 BMI: 29.1 Code: 35019-0 Heart Rate 1: 87 bpm Height: 6'7" SpO2: 97% Weight: 258 lbs 11/28/2016 Blood Pressure 1: 136/68 Code: 8480-6 BMI: 28.8 Code: 32243-8 Heart Rate 1: 76 bpm Height: 6'7" SpO2: 97% Weight: 256 lbs 11/18/2016 Blood Pressure 1: 132/76 Code: 8480-6 BMI: 28.8 Code: 58782-7 Heart Rate 1: 97 bpm Height: 6'7" SpO2: 98% Temperature: 37.3 (C ) / 99.2 (F) Weight: 256 lbs 05/06/2016 Blood Pressure 1: 140/92 Code: 8480-6 BMI: 27.7 Code: 29715-0 Heart Rate 1: 103 bpm Height: 6'7" SpO2: 98% Weight: 246 lbs 04/21/2016 Blood Pressure 1: 152/80 Code: 8480-6 BMI: 28.1 Code: 19877-2 Heart Rate 1: 97 bpm Height: 6'7" SpO2: 98% Weight: 249 lbs 08/29/2015 Blood Pressure 1: 120/80 Code: 8480-6 BMI: 26.9 Code: 06745-1 Height: 6'7" Weight: 239 lbs 05/11/2015 Blood Pressure 1: 132/80 Code: 8480-6 Blood Pressure 2: 122/80 Code: 8480-6 BMI: 27.0 Code: 28301-1 Heart Rate 1: 92 bpm Height: 6'7" SpO2: 98% Weight: 240 lbs Functional Status No Functional Status data History of Present Illness Symptom Name Status Resu lt Effective Date Notes Quality acute 02/10/2019 None Quality intermittent 02/10/2019 [...] Encounters Encounter Performer Loca tion Codes Date ([id number]) 25247 EST. P ATIENT, LEVEL III Diagnosis: Phlebitis and thrombophlebitis of superficial vessels of right lower extremity[ICD10: I80.01] Diagnosis: Effusion, right foot[ICD10: M25.474] Diagnosis: Cough[ICD10: R05] Diagnosis: Other allergic rhinitis[ICD10: J30.89] Sveta Crandall MD, [facility] CPT-4: 19776 02/10/2019 [id number] EST. PATIENT, LEVEL IV Diagnosis: Acute bronchitis due to other specified organisms[ICD10: J20.8] Diagnosis: Acute laryngopharyngitis[ICD10: J06.0] Diagnosis: Other allergic rhinitis[ICD10: J30.89] Fay Crandall MD, [facility] CPT-4: 95777 01/12/2019 ([id number]) 19456 EST. P ATIENT, LEVEL III Diagnosis: Acute laryngopharyngitis[ICD10: J06.0] Diagnosis: Acute recurrent maxillary sinusitis[ICD10: J01.01] Diagnosis: Cough[ICD10: R05] Diagnosis: Generalized anxiety disorder[ICD10: F41.1] Sveta Crandall MD, [facility] CPT-4: 42151 12/29/2018 ([id number]) 13560 EST. P ATIENT, LEVEL III Diagnosis: Generalized anxiety disorder[ICD10: F41.1] Sveta Crandall MD, [facility] CPT-4: 03394 09/20/2018 ([id number]) 97107 EST. P ATIENT, LEVEL III Diagnosis: Generalized anxiety disorder[ICD10: F41.1] Sveta Crandall MD, [facility] CPT-4: 10893 06/09/2018 ([id number]) PREV VISIT E ST AGE 40-64 Diagnosis: Encounter for general adult medical examination without abnormal findings[ICD10: Z00.00] Svtea Crandall MD, [facility] CPT-4: 56429 05/03/2018 ([id number]) 64954 EST. P ATIENT, LEVEL III Diagnosis: Cellulitis of left toe[ICD10: L03.032] Diagnosis: Adjustment insomnia[ICD10: F51.02] Diagnosis: Dermatitis, unspecified[ICD10: L30.9] Alise Crandall MD, [facility] CPT-4: 16221 03/26/2017 ([id number]) 24496 EST. P ATIENT, LEVEL III Diagnosis: Cough[ICD10: R05] Alise Crandall MD, [facility] CPT-4: 44361 11/28/2016 [id number] EST. PATIENT, LEVEL III Diagnosis: Acute laryngopharyngitis[ICD10: J06.0] Diagnosis: Acute bronchitis due to other specified organisms[ICD10: J20.8] Fay Crandall MD, [facility] CPT-4: 51664 11/18/2016 ([id number]) 85851 EST. P ATIENT, LEVEL III Diagnosis: Generalized anxiety disorder[ICD10: F41.1] Sveta Crandall MD, [facility] CPT-4: 60634 05/06/2016 ([id number]) 10053 EST. P ATIENT, LEVEL III Diagnosis: Generalized anxiety disorder[ICD10: F41.1] Sveta Crandall MD, [facility] CPT-4: 12352 04/21/2016 ([id number]) 18887 EST. P ATIENT, LEVEL III Diagnosis: Generalized anxiety disorder[ICD10: F41.1] Sveta Crandall MD, [facility] CPT-4: 97167 08/29/2015 ([id number]) PREV VISIT E ST AGE 40-64 Diagnosis: Well adult exam[ICD9: V70.0] Diagnosis: Anxiety[ICD9: 300.00] Alise Crandall MD, [facility] CPT-4: 41243 05/11/2015 Plan of Care Planned Activity Notes C odes Status Date Visit Plan: Superficial thrombophle bitis -patient sent [...] worse. 02/10/2019 Appointment: [phone] [facility] [place] (30 min) Complex 02/10/2019 Patient Education: Patient [...] allergy spray. 01/12/2019 Appointment: Fay Dave [phone] [facility] [place] (30 min) Complex 01/12/2019 Patient Education: Patient [...] to pharmacy 12/29/2018 [phone] (15 min) Moderate 12/29/2018 Patient Education: Patient [...] current medications. 09/20/2018 Appointment: Sveta Crandall WPtel: [phone] [facility] (15 min) Moderate 09/20/2018 Patient Education: Patient Medication Summary Completed 09/20/2018 Visit Plan: Anxiety and Depression - the pt has symptoms have been fairly well controlled since the last office visit. The pt has expected periods of exacerbation with abatement of the symptoms with change in situa tional exposure. No change in current medications. 06/09/2018 Appointment: Sveta Crandall WPtel: [phone] [facility] (15 min) Moderate 06/09/2018 Patient Education: Patient [...] on lexapro. 05/03/2018 Appointment: [phone] [facility] [place] (15 min) Moderate 05/03/2018 Patient Education: Patient [...] plan. 03/26/2017 Appointment: Alise Collins WPtel: [phone] [facility] [place] [address] (15 min) Moderate 03/26/2017 Patient Education: Patient [...] acutely worsen. 11/18/2016 Appointment: Fay Dave [facility]el[phone] [facility] [place] [place] (30 min) Complex 11/18/2016 Patient Education: Patient [...] medications. 08/29/2015 Appointment: Sveta Crandall WPtel: [phone] [facility] (15 min) Moderate 08/29/2015 Patient Education: Patient Medication Summary Completed 08/29/2015 Appointment: Sveta Crandall WPtel: [phone] [facility] (15 min) Moderate 07/31/2015 Appointment: Sveta Crandall WPtel: [phone] [facility] (15 min) Moderate 07/05/2015 Visit Plan: Well [...] only- patient verbalized understanding of plan. . Superficial thromb ophlebitis -patient sent for [...]
--- OUTSIDE RECORDS SUMMARY | 2020-06-10 16:23 | XMS REPORT | CCD ---
Author Author Aldair Collins Organization Sveta Crandall MD, 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 Name Role Phone PP Unavailable CCM Unavailable Summary Purpose Interface Exchange Insurance Providers Payer name Policy type / Coverage type Covered libertarian ID Effective Begin Date Effective End Date Blue Cross Blue [facility] e Cross/Blue Shield [id number] Unknown Unk nown Family history Father Diagnosis Age At Onset Hypertension Unknown Mother Diagnosis Age At Onset alcohol dependence Unknown Skin cancer Unknown Cancer Unknown Depression Unknown Social History Social History Element Codes Description Effective Dates Marital status Unknown M daniela Coello 05/03/2018 Number of children Unknown 2 05/11/[address]: 016139817 Never smoker 05/11/2015 Alcohol history Unknown occasionally drinks alcohol 05/11/2015 Allergies, Adverse Reactions, Alerts Substance Reaction Codes Entered Date Inactivated Date Status * NO KNOWN DRUG SANTANA RGIES Unknown 08/29/2015 No Inactive Date Active Past Medical History Illness Codes Condition Status Onset Date Resolved Date Acute bronchitis due to other specified organisms ICD-9: 466.0 ICD-10: J20.8 Active 11/17/2016 Unknown Acute laryngopharyng itis ICD-9: 465.0 ICD-10: J06.0 Active 11/17/2016 Unknown Other allergic rhinitis ICD-9: 477.8 ICD-10: J30.89 Active 01/12/2019 Unknown Acute recurrent maxi llary sinusitis ICD-9: 461.0 ICD-10: J01.01 Active 12/29/2018 Unknown Cough ICD-9: 786.2 ICD-10: R05 Active 11/28/2016 Unknown Generalized anxiety disorder ICD-9: 300.00 ICD-10: [...] Codes Effectiv e Dates Condition Status Acute bronchitis due to other specified organisms ICD-9: 466.0 ICD-10: J20.8 11/17/2016 Active Acute laryngopharyng itis ICD-9: 465.0 ICD-10: J06.0 11/17/2016 Active Other allergic rhinitis ICD-9: 477.8 ICD-10: J30.89 01/12/2019 Active Acute recurrent maxi llary sinusitis ICD-9: 461.0 ICD-10: J01.01 12/29/2018 Active Cough ICD-9: 786.2 ICD-10: R05 11/28/2016 Active Generalized anxiety disorder ICD-9: 300.00 ICD-10: [...] Date Stop Date Sta tus Fill Instructions Levaquin 500 mg tablet RxNorm: 883311 1 Tablet(s) PO daily 01/12/2019 01/18/2019 Inactive prednisone 10 mg tablet RxNorm: 738592 Tablet(s) PO 01/12/2019 No Stop Date Active 60mg x 2 days, then 50mg x 2 days, then 40mg x 2 days, then 30mg x 2 days, then 20mg x 2 days, then 10mg x 2 days, then 5mg every other day x 2 doses. Singulair 10 mg tablet RxNorm: 550052 1 Tablet(s) PO QHS 01/12/2019 02/10/2019 Active Kenalog 40 mg/mL luis pension for injection RxNorm: 9294433 Milliliter(s) Inj 01/12/2019 01/12/2019 In active ceftriaxone 500 mg s olution for injection RxNorm: 1289086 Inj 01/12/2019 01/12/2019 Inactive Sonia-D 12 Hour 60 mg-120 mg tablet,extended release RxNorm: 731196 1 Tablet(s) PO daily 12/29/2018 01/27/2019 Active Lexapro 10 mg tablet RxNorm: 422902 1.5 Tablet(s) PO QHS 12/29/2018 12/23/2019 Active Bactrim DS 800 mg-16 0 mg tablet RxNorm: 275482 1 Tablet(s) PO BID 12/29/2018 01/07/2019 Inactive Symbicort 160 mcg-4. 5 mcg/actuation HFA aerosol inhaler RxNorm: 3480699 2 Puff(s) INH BID 12/28/2018 No Stop Date Active Xanax 0.25 mg tablet RxNorm: 422585 1 Tablet(s) PO TID as needed anxiety 11/25/2018 01/23/2019 Ac tive Lexapro 10 mg tablet RxNorm: 976764 1.5 Tablet(s) PO QHS 11/23/2018 12/28/2018 Inactive propranolol 40 mg ta blet RxNorm: 235129 Tablet(s) TAKE 1 TABL ET BY MOUTH PRIOR TO EVENT NEEDED 09/20/2018 12/08/2018 Inactive Lexapro 10 mg tablet RxNorm: 606377 1 Tablet(s) PO QHS 08/30/2018 11/22/2018 Inactive Lexapro 10 mg tablet RxNorm: 423556 1 Tablet(s) PO QHS 05/03/2018 08/29/2018 Inactive cyclobenzaprine 5 mg tablet RxNorm: 744071 1 Tablet(s) PO TID as needed 01/05/2018 01/09/2018 In active cyclobenzaprine 5 mg tablet RxNorm: 286552 1 Tablet(s) PO TID as needed 01/05/2018 01/04/2018 In active propranolol 40 mg ta blet RxNorm: 174024 TAKE 1 TABLET BY MOUT H PRIOR TO EVENT NEEDED 07/24/2017 10/11/2017 Inactive Generic For:INDERAL 40 MG TABLET 2016 9:51:34 AM Prozac 10 mg capsule RxNorm: 772737 1 Capsule(s) PO daily may increase after a few weeks if needed 04/09/2017 04/08/2017 Inactive Pt to call if he wants dose increased Prozac 10 mg capsule RxNorm: 089614 1 Capsule(s) PO daily may increase after a few weeks if needed 04/09/2017 05/02/2018 Inactive Pt to call if he wants dose increased Ambien 10 mg tablet RxNorm: 219816 1 Tablet(s) PO HS PRN 03/26/2017 05/02/2018 Inactive betamethasone johnny te 0.1 % topical cream RxNorm: 148858 1 Application TOP BID 03/26/2017 04/08/2017 In active Keflex 500 mg capsule RxNorm: 059781 1 Capsule(s) PO TID 03/26/2017 04/01/2017 Inactive Klonopin 0.5 mg tablet RxNorm: 029881 Tablet(s) TAKE 1 TABLET BY MOUTH EVERY 8 HOURS NEEDED 01/28/2017 02/26/2017 Inactive prednisone 10 mg tablet RxNorm: 633757 Tablet(s) PO UD 11/18/2016 05/02/2018 Inactive 6,5,4,3,2,1 Zithromax Z-Kevin 250 mg tablet RxNorm: 552568 1 Tablet(s) PO UD 11/18/2016 01/27/2017 Inactive 1 zpack Klonopin 0.5 mg tablet RxNorm: 130462 Tablet(s) TAKE 1 TABLET BY MOUTH EVERY 8 HOURS NEEDED 07/09/2016 08/05/2016 Inactive Generic For:KLONOPIN 0.5 MG TABLET N O T I C E PRESCRIPTION PREVIOUSLY AUTHORIZED BY DOCTOR:JULES DELANEY mirtazapine 7.5 mg t ablet RxNorm: 233009 1 Tablet(s) PO QHS 07/04/2016 04/08/2017 Inactive Belsomra 10 mg tablet RxNorm: 9586207 1 Tablet(s) PO QHS 05/30/2016 05/29/2016 Inactive Belsomra 10 mg tablet RxNorm: 5914091 1 Tablet(s) PO QHS as needed 05/30/2016 03/25/2017 In active propranolol 40 mg ta blet RxNorm: 893478 Tablet(s) 1 - 1.5 Tab let(s) PO prior to event as needed 05/06/2016 07/23/2017 Inactive mirtazapine 15 mg ta blet RxNorm: 850379 1 Tablet(s) PO QHS 04/30/2016 05/29/2016 Inactive amitriptyline 25 mg tablet RxNorm: 836082 1 Tablet(s) PO QPM 04/21/2016 04/29/2016 Inactive propranolol 40 mg ta blet RxNorm: 135043 1 Tablet(s) PO prior to event as needed 04/10/2016 05/05/2016 In active Klonopin 0.5 mg tablet RxNorm: 976118 Tablet(s) TAKE 1 TABLET BY MOUTH EVERY 8 HOURS NEEDED 02/29/2016 03/18/2016 Inactive Generic For:KLONOPIN 0.5 MG TABLET N O T I C E PRESCRIPTION PREVIOUSLY AUTHORIZED BY DOCTOR:JULES DELANEY Sonia-D 24 Hour 18 0 mg-240 mg tablet,extended release RxNorm: 033298 1 Tablet(s) PO daily 01/21/2016 01/20/2016 Inactive Sonia-D 24 Hour 18 0 mg-240 mg tablet,extended release RxNorm: 580508 1 Tablet(s) PO daily 01/21/2016 12/28/2018 Inactive propranolol 40 mg ta blet RxNorm: 878181 1 Tablet(s) PO prior to event as needed 11/20/2015 04/09/2016 In active Zithromax Z-Kevin 250 mg tablet RxNorm: 677346 1 Tablet(s) PO UD 10/19/2015 05/05/2016 Inactive 1 zpack Klonopin 0.5 mg tablet RxNorm: 452427 Tablet(s) TAKE 1 TABLET BY MOUTH EVERY 8 HOURS NEEDED 07/17/2015 08/04/2015 Inactive Generic For:KLONOPIN 0.5 MG TABLET N O T I C E PRESCRIPTION PREVIOUSLY AUTHORIZED BY DOCTOR:JULES DELANEY Klonopin 0.5 mg tablet RxNorm: 469634 Tablet(s) TAKE 1 TABLET BY MOUTH EVERY 8 HOURS NEEDED 07/17/2015 07/16/2015 Inactive Generic For:KLONOPIN 0.5 MG TABLET N O T I C E PRESCRIPTION PREVIOUSLY AUTHORIZED BY DOCTOR:JULES DELANYE Klonopin 0.5 mg tablet RxNorm: 377541 TAKE 1 TABLET BY MOUTH EVERY 8 HOURS NEEDED 07/16/2015 07/16/2015 Inactive Generic For:KLONOPIN 0.5 MG TABLET N O T I C E PRESCRIPTION PREVIOUSLY AUTHORIZED BY DOCTOR:JULES DELANEY Lexapro 10 mg tablet RxNorm: 274320 1 Tablet(s) PO daily 05/11/2015 08/28/2015 Inactive propranolol 40 mg ta blet RxNorm: 208336 1 Tablet(s) PO prior to john n No Start Date 11/19/2015 Inactive Zithromax Z-Kevin 250 mg tablet RxNorm: 343948 1 Tablet(s) PO UD No Start Date 10/18/2015 Inactive 1 zpack Klonopin 0.5 mg tablet RxNorm: 252623 Tablet(s) PO as needed No Start Date 07/17/2015 Inactive Symbicort 160 mcg-4. 5 mcg/actuation HFA aerosol inhaler RxNorm: 2540811 2 Puff(s) INH BID No Start Date 12/27/2018 Inactive Medication Administered Medication Codes Instruc tions Start Date Status Kenalog 40 mg/mL suspension for injection RxNorm: 4607081 Milliliter 01/12/2019 No longer Active ceftriaxone 500 mg solution for injection RxNorm: 5118102 01/12/2019 No longer A ctive Immunizations Vaccine Codes Date Status Tetanus, Diptheria, Pertussis CVX: 113 04/02/2015 completed Tetanus/Diptheria CVX: 113 04/02/2015 completed Assessments Condition Codes Effectiv e Dates Other allergic rhinitis ICD-10: J30. 89 ICD-9: 477.8 01/12/2019 Acute laryngopharyngitis ICD-10: J06 .0 ICD-9: 465.0 01/12/2019 Acute bronchitis due to other specified organisms ICD-10: J20.8 ICD-9: 466.0 01/12/2019 Acute recurrent maxillary sinusitis ICD-10: J01.01 ICD-9: 461.0 12/29/2018 Cough ICD-10: R05 ICD-9: 786.2 12/29/2018 Generalized anxiety disorder ICD-10: F41.1 ICD-9: [...] Reason For Visit Effective Dates Notes cough 01/12/2019 cough 12/29/2018 anxiety 09/20/2018 anxiety 06/09/2018 well man exam (40-65 years) 05/03/2018 foot pain 03/26/2017 chest congestion 11/28/2016 cough 11/18/2016 anxiety 05/06/2016 anxiety 04/21/2016 well man exam (40-65 years) 05/11/2015 Results No Results data Review of Systems System Result Effective Dates Constitutional recent illness 01/12/2019 Constitutional chills Constitutional [...] CPT-4: J3301 11/18/2016 Vital Signs Date Vital 01/12/2019 Blood Pressure 1: 144/78 Code: 8480-6 BMI: 30.1 Code: 78883-0 Heart Rate 1: 102 bpm Height: 6'7" SpO2: 98% Weight: 267 lbs 12/29/2018 Blood Pressure 1: 138/88 Code: 8480-6 BMI: 30.1 Code: 03142-9 Heart Rate 1: 89 bpm Height: 6'7" SpO2: 98% Temperature: 36.5 (C ) / 97.7 (F) Weight: 267 lbs 09/20/2018 Blood Pressure 1: 132/80 Code: 8480-6 BMI: 29.5 Code: 43909-4 Heart Rate 1: 96 bpm Height: 6'7" SpO2: 98% Weight: 262 lbs 06/09/2018 Blood Pressure 1: 142/84 Code: 8480-6 BMI: 29.7 Code: 87059-8 Heart Rate 1: 89 bpm Height: 6'7" SpO2: 96% Weight: 264 lbs 05/03/2018 Blood Pressure 1: 150/78 Code: 8480-6 BMI: 28.8 Code: 55488-7 Heart Rate 1: 96 bpm Height: 6'7" SpO2: 97% Weight: 256 lbs 03/26/2017 Blood Pressure 1: 146/84 Code: 8480-6 BMI: 29.1 Code: 78392-7 Heart Rate 1: 87 bpm Height: 6'7" SpO2: 97% Weight: 258 lbs 11/28/2016 Blood Pressure 1: 136/68 Code: 8480-6 BMI: 28.8 Code: 34721-2 Heart Rate 1: 76 bpm Height: 6'7" SpO2: 97% Weight: 256 lbs 11/18/2016 Blood Pressure 1: 132/76 Code: 8480-6 BMI: 28.8 Code: 28736-7 Heart Rate 1: 97 bpm Height: 6'7" SpO2: 98% Temperature: 37.3 (C ) / 99.2 (F) Weight: 256 lbs 05/06/2016 Blood Pressure 1: 140/92 Code: 8480-6 BMI: 27.7 Code: 83488-6 Heart Rate 1: 103 bpm Height: 6'7" SpO2: 98% Weight: 246 lbs 04/21/2016 Blood Pressure 1: 152/80 Code: 8480-6 BMI: 28.1 Code: 07502-9 Heart Rate 1: 97 bpm Height: 6'7" SpO2: 98% Weight: 249 lbs 08/29/2015 Blood Pressure 1: 120/80 Code: 8480-6 BMI: 26.9 Code: 53543-7 Height: 6'7" Weight: 239 lbs 05/11/2015 Blood Pressure 1: 132/80 Code: 8480-6 Blood Pressure 2: 122/80 Code: 8480-6 BMI: 27.0 Code: 19701-1 Heart Rate 1: 92 bpm Height: 6'7" SpO2: 98% Weight: 240 lbs Functional Status No Functional Status data History of Present Illness Symptom Name Status Resu lt Effective Date Notes Quality acute 01/12/2019 None Quality intermittent 01/12/2019 [...] Encounters Encounter Performer Loca tion Codes Date 75143 EST. PATIENT, LEVEL IV Diagnosis: Acute bronchitis due to other specified organisms[ICD10: J20.8] Diagnosis: Acute laryngopharyngitis[ICD10: J06.0] Diagnosis: Other allergic rhinitis[ICD10: J30.89] Fay Crandall MD, [facility] CPT-4: 50076 01/12/2019 ([id number]) 50416 EST. P ATIENT, LEVEL III Diagnosis: Acute laryngopharyngitis[ICD10: J06.0] Diagnosis: Acute recurrent maxillary sinusitis[ICD10: J01.01] Diagnosis: Cough[ICD10: R05] Diagnosis: Generalized anxiety disorder[ICD10: F41.1] Sveta Crandall MD, C CPT-4: 21126 12/29/2018 ([id number]) 34756 EST. P ATIENT, LEVEL III Diagnosis: Generalized anxiety disorder[ICD10: F41.1] Sveta Crandall MD, C CPT-4: 91618 09/20/2018 ([id number]) 17393 EST. P ATIENT, LEVEL III Diagnosis: Generalized anxiety disorder[ICD10: F41.1] Sveta Crandall MD, C CPT-4: 75724 06/09/2018 ([id number]) PREV VISIT E ST AGE 40-64 Diagnosis: Encounter for general adult medical examination without abnormal findings[ICD10: Z00.00] Sveta Crandall MD, [facility] CPT-4: 65450 05/03/2018 ([id number]) 30334 EST. P ATIENT, LEVEL III Diagnosis: Cellulitis of left toe[ICD10: L03.032] Diagnosis: Adjustment insomnia[ICD10: F51.02] Diagnosis: Dermatitis, unspecified[ICD10: L30.9] Alise Crandall MD, [facility] CPT-4: 88203 03/26/2017 ([id number]) 49351 EST. P ATIENT, LEVEL III Diagnosis: Cough[ICD10: R05] Alise Crandall MD, [facility] CPT-4: 72979 11/28/2016 93077 EST. PATIENT, LEVEL III Diagnosis: Acute laryngopharyngitis[ICD10: J06.0] Diagnosis: Acute bronchitis due to other specified organisms[ICD10: J20.8] Fay Crandall MD, [facility] CPT-4: 01649 11/18/2016 ([id number]) 52541 EST. P ATIENT, LEVEL III Diagnosis: Generalized anxiety disorder[ICD10: F41.1] Sveta Crandall MD, [facility] CPT-4: 13473 05/06/2016 ([id number]) 76389 EST. P ATIENT, LEVEL III Diagnosis: Generalized anxiety disorder[ICD10: F41.1] Sveta Crandall MD, C CPT-4: 47061 04/21/2016 ([id number]) 62292 EST. P ATIENT, LEVEL III Diagnosis: Generalized anxiety disorder[ICD10: F41.1] Sveta Crandall MD, C CPT-4: 66235 08/29/2015 ([id number]) PREV VISIT E ST AGE 40-64 Diagnosis: Well adult exam[ICD9: V70.0] Diagnosis: Anxiety[ICD9: 300.00] Alise Crandall MD, [facility] CPT-4: 86798 05/11/2015 Plan of Care Planned Activity Notes C odes Status Date Visit Plan: Bronchitis - acute case of [...] allergy spray. 01/12/2019 Appointment: Fay Dave WPtel: [facility] (30 min) Complex 01/12/2019 Patient Education: Patient [...] to pharmacy 12/29/2018 Appointment: Sveta Crandall WPtel: [address] [place] [address] (15 min) Moderate 12/29/2018 Patient Education: Patient [...] medications. 09/20/2018 Appointment: Sveta Crandall WPtel: [facility] (15 min) Moderate 09/20/2018 Patient Education: Patient Medication Summary Completed 09/20/2018 Visit Plan: Anxiety and Depression - the pt has symptoms have been fairly well controlled since the last office visit. The pt has expected periods of exacerbation with abatement of the symptoms with change in situa tional exposure. No change in current medications. 06/09/2018 Appointment: Sveta Crandall WPtel: [facility] (15 min) Moderate 06/09/2018 Patient Education: Patient [...] on lexapro. 05/03/2018 Appointment: Sveta Crandall WPtel: [facility]8 [facility] (15 min) Moderate 05/03/2018 Patient Education: Patient [...] of plan. 03/26/2017 Appointment: Alise Collins WPtel: [phone] [place] (15 min) Moderate 03/26/2017 Patient Education: Patient [...] worsen. 11/18/2016 Appointment: Fay Dave WPtel: [phone] [facility] (30 min) Complex 11/18/2016 Patient Education: Patient [...] current medications. 08/29/2015 Appointment: Sveta Crandall WPtel: [facility] [place] (15 min) Moderate 08/29/2015 Patient Education: Patient Medication Summary Completed 08/29/2015 Appointment: Sveta Crandall WPtel: [phone] [facility] [place] (15 min) Moderate 07/31/2015 Appointment: Sveta Crandall WPtel: [phone] [facility] (15 min) Moderate 07/05/2015 Visit Plan: Well [...] Summary Completed 05/11/2015 Instructions Comment . Cough-recent [facility] [place] [facility]-symptoms improving-recommend patient take sonia daily-monitor symptoms [...]
--- OUTSIDE RECORDS SUMMARY | 2020-06-10 16:23 | XMS REPORT | CCD ---
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 e Cross/Blue Shield [id number] Unknown Unk nown Family history Father Diagnosis Age At Onset Hypertension Unknown Mother Diagnosis Age At Onset alcohol dependence Unknown Skin cancer Unknown Cancer Unknown Depression Unknown Social History Social History Element Codes Description Effective Dates Marital status Unknown M daniela Coello 05/03/2018 Number of children Unknown 2 05/11/[address]: 180715788 Never smoker 05/11/2015 Alcohol history Unknown occasionally [...] Fill Instructions Keflex 500 mg capsule RxNorm: 074885 1 Capsule(s) PO TID 02/10/2019 02/19/2019 Active prednisone 10 mg tablet RxNorm: 725363 Tablet(s) PO 01/12/2019 No Stop Date Active 60mg x 2 days, then 50mg x 2 days, then 40mg x 2 days, then 30mg x 2 days, then 20mg x 2 days, then 10mg x 2 days, then 5mg every other day x 2 doses. Singulair 10 mg tablet RxNorm: 676954 1 Tablet(s) PO QHS 01/12/2019 02/10/2019 Inactive Kenalog 40 mg/mL luis pension for injection RxNorm: 1390377 Milliliter(s) Inj 01/12/2019 01/12/2019 In active Levaquin 500 mg tablet RxNorm: 924316 1 Tablet(s) PO daily 01/12/2019 01/18/2019 Inactive ceftriaxone 500 mg s olution for injection RxNorm: 6048466 Inj 01/12/2019 01/12/2019 Inactive Lexapro 10 mg tablet RxNorm: 536132 1.5 Tablet(s) PO QHS 12/29/2018 12/23/2019 Active Sonia-D 12 Hour 60 mg-120 mg tablet,extended release RxNorm: 759168 1 Tablet(s) PO daily 12/29/2018 01/27/2019 Inactive Bactrim DS 800 mg-16 0 mg tablet RxNorm: 238095 1 Tablet(s) PO BID 12/29/2018 01/07/2019 Inactive Symbicort 160 mcg-4. 5 mcg/actuation HFA aerosol inhaler RxNorm: 5224376 2 Puff(s) INH BID 12/28/2018 No Stop Date Active Xanax 0.25 mg tablet RxNorm: 630737 1 Tablet(s) PO TID as needed anxiety 11/25/2018 01/23/2019 In active Lexapro 10 mg tablet RxNorm: 764700 1.5 Tablet(s) PO QHS 11/23/2018 12/28/2018 Inactive propranolol 40 mg ta blet RxNorm: 221262 Tablet(s) TAKE 1 TABL ET BY MOUTH PRIOR TO EVENT NEEDED 09/20/2018 12/08/2018 Inactive Lexapro 10 mg tablet RxNorm: 347052 1 Tablet(s) PO QHS 08/30/2018 11/22/2018 Inactive Lexapro 10 mg tablet RxNorm: 203362 1 Tablet(s) PO QHS 05/03/2018 08/29/2018 Inactive cyclobenzaprine 5 mg tablet RxNorm: 245932 1 Tablet(s) PO TID as needed 01/05/2018 01/09/2018 In active cyclobenzaprine 5 mg tablet RxNorm: 924845 1 Tablet(s) PO TID as needed 01/05/2018 01/04/2018 In active propranolol 40 mg ta blet RxNorm: 304933 TAKE 1 TABLET BY MOUT H PRIOR TO EVENT NEEDED 07/24/2017 10/11/2017 Inactive Generic For:INDERAL 40 MG TABLET 2016 9:51:34 AM Prozac 10 mg capsule RxNorm: 594248 1 Capsule(s) PO daily may increase after a few weeks if needed 04/09/2017 04/08/2017 Inactive Pt to call if he wants dose increased Prozac 10 mg capsule RxNorm: 234646 1 Capsule(s) PO daily may increase after a few weeks if needed 04/09/2017 05/02/2018 Inactive Pt to call if he wants dose increased Ambien 10 mg tablet RxNorm: 681454 1 Tablet(s) PO HS PRN 03/26/2017 05/02/2018 Inactive betamethasone johnny te 0.1 % topical cream RxNorm: 239608 1 Application TOP BID 03/26/2017 04/08/2017 In active Keflex 500 mg capsule RxNorm: 335544 1 Capsule(s) PO TID 03/26/2017 04/01/2017 Inactive Klonopin 0.5 mg tablet RxNorm: 514388 Tablet(s) TAKE 1 TABLET BY MOUTH EVERY 8 HOURS NEEDED 01/28/2017 02/26/2017 Inactive prednisone 10 mg tablet RxNorm: 763822 Tablet(s) PO UD 11/18/2016 05/02/2018 Inactive 6,5,4,3,2,1 Zithromax Z-Kevin 250 mg tablet RxNorm: 895741 1 Tablet(s) PO UD 11/18/2016 01/27/2017 Inactive 1 fadi Klonopin 0.5 mg tablet RxNorm: 577000 Tablet(s) TAKE 1 TABLET BY MOUTH EVERY 8 HOURS NEEDED 07/09/2016 08/05/2016 Inactive Generic For:KLONOPIN 0.5 MG TABLET N O T I C E PRESCRIPTION PREVIOUSLY AUTHORIZED BY DOCTOR:JULES DELANEY mirtazapine 7.5 mg t ablet RxNorm: 555914 1 Tablet(s) PO QHS 07/04/2016 04/08/2017 Inactive Belsomra 10 mg tablet RxNorm: 0283985 1 Tablet(s) PO QHS 05/30/2016 05/29/2016 Inactive Belsomra 10 mg tablet RxNorm: 9410695 1 Tablet(s) PO QHS as needed 05/30/2016 03/25/2017 In active propranolol 40 mg ta blet RxNorm: 222555 Tablet(s) 1 - 1.5 Tab let(s) PO prior to event as needed 05/06/2016 07/23/2017 Inactive mirtazapine 15 mg ta blet RxNorm: 253562 1 Tablet(s) PO QHS 04/30/2016 05/29/2016 Inactive amitriptyline 25 mg tablet RxNorm: 227947 1 Tablet(s) PO QPM 04/21/2016 04/29/2016 Inactive propranolol 40 mg ta blet RxNorm: 685857 1 Tablet(s) PO prior to event as needed 04/10/2016 05/05/2016 In active Klonopin 0.5 mg tablet RxNorm: 689712 Tablet(s) TAKE 1 TABLET BY MOUTH EVERY 8 HOURS NEEDED 02/29/2016 03/18/2016 Inactive Generic For:KLONOPIN 0.5 MG TABLET N O T I C E PRESCRIPTION PREVIOUSLY AUTHORIZED BY DOCTOR:JULES DELANEY [phone] Sonia-D 24 Hour 18 0 mg-240 mg tablet,extended release RxNorm: 301516 1 Tablet(s) PO daily 01/21/2016 01/20/2016 Inactive Sonia-D 24 Hour 18 0 mg-240 mg tablet,extended release RxNorm: 631868 1 Tablet(s) PO daily 01/21/2016 12/28/2018 Inactive propranolol 40 mg ta blet RxNorm: 231720 1 Tablet(s) PO prior to event as needed 11/20/2015 04/09/2016 In active Zithromax Z-Kevin 250 mg tablet RxNorm: 090154 1 Tablet(s) PO UD 10/19/2015 05/05/2016 Inactive 1 zpack Klonopin 0.5 mg tablet RxNorm: 655556 Tablet(s) TAKE 1 TABLET BY MOUTH EVERY 8 HOURS NEEDED 07/17/2015 08/04/2015 Inactive Generic For:KLONOPIN 0.5 MG TABLET N O T I C E PRESCRIPTION PREVIOUSLY AUTHORIZED BY DOCTOR:JULES DELANEY Klonopin 0.5 mg tablet RxNorm: 162086 Tablet(s) TAKE 1 TABLET BY MOUTH EVERY 8 HOURS NEEDED 07/17/2015 07/16/2015 Inactive Generic For:KLONOPIN 0.5 MG TABLET N O T I C E PRESCRIPTION PREVIOUSLY AUTHORIZED BY DOCTOR:JULES DELANEY [phone] Klonopin 0.5 mg tablet RxNorm: 382614 TAKE 1 TABLET BY MOUTH EVERY 8 HOURS NEEDED 07/16/2015 07/16/2015 Inactive Generic For:KLONOPIN 0.5 MG TABLET N O T I C E PRESCRIPTION PREVIOUSLY AUTHORIZED BY DOCTOR:JULES DELANEY Lexapro 10 mg tablet RxNorm: 738916 1 Tablet(s) PO daily 05/11/2015 08/28/2015 Inactive propranolol 40 mg ta blet RxNorm: 227911 1 Tablet(s) PO prior to john n No Start Date 11/19/2015 Inactive Zithromax Z-Kevin 250 mg tablet RxNorm: 542492 1 Tablet(s) PO UD No Start Date 10/18/2015 Inactive 1 zpack Klonopin 0.5 mg tablet RxNorm: 176578 Tablet(s) PO as needed No Start Date 07/17/2015 Inactive Symbicort 160 mcg-4. 5 mcg/actuation HFA aerosol inhaler RxNorm: 2574922 2 Puff(s) INH BID No Start Date 12/27/2018 Inactive Medication Administered Medication Codes Instruc tions Start Date Status Kenalog 40 mg/mL suspension for injection RxNorm: 8938631 Milliliter 01/12/2019 No longer Active ceftriaxone 500 mg solution for injection RxNorm: 0052557 01/12/2019 No longer A ctive Immunizations Vaccine [...] 1: 142/88 Code: 8480-6 BMI: 30.1 Code: 82966-3 Heart Rate 1: 84 bpm Height: 6'7" Height: SpO2: 98% Weight: 267 lbs Weight: 01/12/2019 Blood Pressure 1: 144/78 Code: 8480-6 BMI: 30.1 Code: 83290-2 Heart Rate 1: 102 bpm Height: 6'7" SpO2: 98% Weight: 267 lbs 12/29/2018 Blood Pressure 1: 138/88 Code: 8480-6 BMI: 30.1 Code: 19351-6 Heart Rate 1: 89 bpm Height: 6'7" SpO2: 98% Temperature: 36.5 (C ) / 97.7 (F) Weight: 267 lbs 09/20/2018 Blood Pressure 1: 132/80 Code: 8480-6 BMI: 29.5 Code: 21207-4 Heart Rate 1: 96 bpm Height: 6'7" SpO2: 98% Weight: 262 lbs 06/09/2018 Blood Pressure 1: 142/84 Code: 8480-6 BMI: 29.7 Code: 93258-8 Heart Rate 1: 89 bpm Height: 6'7" SpO2: 96% Weight: 264 lbs 05/03/2018 Blood Pressure 1: 150/78 Code: 8480-6 BMI: 28.8 Code: 38978-7 Heart Rate 1: 96 bpm Height: 6'7" SpO2: 97% Weight: 256 lbs 03/26/2017 Blood Pressure 1: 146/84 Code: 8480-6 BMI: 29.1 Code: 89431-2 Heart Rate 1: 87 bpm Height: 6'7" SpO2: 97% Weight: 258 lbs 11/28/2016 Blood Pressure 1: 136/68 Code: 8480-6 BMI: 28.8 Code: 90219-3 Heart Rate 1: 76 bpm Height: 6'7" SpO2: 97% Weight: 256 lbs 11/18/2016 Blood Pressure 1: 132/76 Code: 8480-6 BMI: 28.8 Code: 87335-3 Heart Rate 1: 97 bpm Height: 6'7" SpO2: 98% Temperature: 37.3 (C ) / 99.2 (F) Weight: 256 lbs 05/06/2016 Blood Pressure 1: 140/92 Code: 8480-6 BMI: 27.7 Code: 11321-4 Heart Rate 1: 103 bpm Height: 6'7" SpO2: 98% Weight: 246 lbs 04/21/2016 Blood Pressure 1: 152/80 Code: 8480-6 BMI: 28.1 Code: 03475-1 Heart Rate 1: 97 bpm Height: 6'7" SpO2: 98% Weight: 249 lbs 08/29/2015 Blood Pressure 1: 120/80 Code: 8480-6 BMI: 26.9 Code: 27913-7 Height: 6'7" Weight: 239 lbs 05/11/2015 Blood Pressure 1: 132/80 Code: 8480-6 Blood Pressure 2: 122/80 Code: 8480-6 BMI: 27.0 Code: 24613-1 Heart Rate 1: 92 bpm Height: 6'7" [...] Encounters Encounter Performer Loca tion Codes Date ([id number]) [id number] EST. P ATIENT, LEVEL III Diagnosis: Phlebitis and thrombophlebitis of superficial vessels of right lower extremity[ICD10: I80.01] Diagnosis: Effusion, right foot[ICD10: M25.474] Diagnosis: Cough[ICD10: R05] Diagnosis: Other allergic rhinitis[ICD10: J30.89] Alise Crandall MD, [facility] CPT-4: 88972 02/10/2019 [id number] EST. PATIENT, LEVEL IV Diagnosis: Acute bronchitis due to other specified organisms[ICD10: J20.8] Diagnosis: Acute laryngopharyngitis[ICD10: J06.0] Diagnosis: Other allergic rhinitis[ICD10: J30.89] Fay Crandall MD, [facility] CPT-4: 87152 01/12/2019 ([id number]) 53373 EST. P ATIENT, LEVEL III Diagnosis: Acute laryngopharyngitis[ICD10: J06.0] Diagnosis: Acute recurrent maxillary sinusitis[ICD10: J01.01] Diagnosis: Cough[ICD10: R05] Diagnosis: Generalized anxiety disorder[ICD10: F41.1] Sveta Crandall MD, [facility] CPT-4: 51987 12/29/2018 ([id number]) 20951 EST. P ATIENT, LEVEL III Diagnosis: Generalized anxiety disorder[ICD10: F41.1] Sveta Crandall MD, [facility] CPT-4: 68404 09/20/2018 ([id number]) 23142 EST. P ATIENT, LEVEL III Diagnosis: Generalized anxiety disorder[ICD10: F41.1] Sveta Crandall MD, [facility] CPT-4: 31523 06/09/2018 ([id number]) PREV VISIT E ST AGE 40-64 Diagnosis: Encounter for general adult medical examination without abnormal findings[ICD10: Z00.00] Sveta Crandall MD, [facility] CPT-4: 69240 05/03/2018 ([id number]) 37427 EST. P ATIENT, LEVEL III Diagnosis: Cellulitis of left toe[ICD10: L03.032] Diagnosis: Adjustment insomnia[ICD10: F51.02] Diagnosis: Dermatitis, unspecified[ICD10: L30.9] Alise Crandall MD, [facility] CPT-4: 67136 03/26/2017 ([id number]) 02379 EST. P ATIENT, LEVEL III Diagnosis: Cough[ICD10: R05] Alise Crandall MD, [facility] CPT-4: 60648 11/28/2016 [id number] EST. PATIENT, LEVEL III Diagnosis: Acute laryngopharyngitis[ICD10: J06.0] Diagnosis: Acute bronchitis due to other specified organisms[ICD10: J20.8] Fay Crandall MD, [facility] CPT-4: 16830 11/18/2016 ([id number]) 82539 EST. P ATIENT, LEVEL III Diagnosis: Generalized anxiety disorder[ICD10: F41.1] Sveta Crandall MD, [facility] CPT-4: 30993 05/06/2016 ([id number]) 30592 EST. P ATIENT, LEVEL III Diagnosis: Generalized anxiety disorder[ICD10: F41.1] Sveta Crandall MD, [facility] CPT-4: 23859 04/21/2016 ([id number]) 63659 EST. P ATIENT, LEVEL III Diagnosis: Generalized anxiety disorder[ICD10: F41.1] Sveta Crandall MD, [facility] CPT-4: 02944 08/29/2015 ([id number]) PREV VISIT E ST AGE 40-64 Diagnosis: Well adult exam[ICD9: V70.0] Diagnosis: Anxiety[ICD9: 300.00] Alise Crandall MD, [facility] CPT-4: 79436 05/11/2015 Plan of Care Planned Activity Notes [...] not resolve or if any worse. 02/10/2019 Patient Education: Patient Medication Summary Completed [...] allergy spray. 01/12/2019 Appointment: Fay Dave WPtel: [facility]0 [facility] (30 min) Complex 01/12/2019 Patient Education: Patient [...] to pharmacy 12/29/2018 Appointment: Sveta Crandall WPtel: [facility]5 [facility] (15 min) Moderate 12/29/2018 Patient Education: Patient [...] current medications. 09/20/2018 Appointment: Sveta Crandall WPtel: [facility] (15 min) Moderate 09/20/2018 Patient Education: Patient Medication Summary Completed 09/20/2018 Visit Plan: Anxiety and Depression - the pt has symptoms have been fairly well controlled since the last office visit. The pt has expected periods of exacerbation with abatement of the symptoms with change in situa tional exposure. No change in current medications. 06/09/2018 Appointment: Sveta Crandall WPtel: [facility] (15 min) Moderate 06/09/2018 Patient Education: Patient [...] lexapro. 05/03/2018 Appointment: Sveta Crandall WPtel: [phone] [facility] (15 min) Moderate 05/03/2018 Patient Education: [...] of plan. 03/26/2017 [phone] [phone] [place] (15 min) Moderate 03/26/2017 Patient Education: [...] worsen. 11/18/2016 [facility]ment[facility] [facility] (30 min) Complex 11/18/2016 Patient Education: [...] current medications. 08/29/2015 [phone] ([facility] Moderate 08/29/2015 Patient Education: Patient Medication Summary Completed 08/29/2015 Appointment: Sveta Crandall WPtel: [phone] [facility] (15 min) Moderate 07/31/2015 Appointment: Sveta Crandall WPtel: [phone] [facility] (15 min) Moderate 07/05/2015 Visit [...] Summary Completed 05/11/2015 Instructions Comment . Cough-recent research [facility]is-symptoms improving-recommend patient take sonia daily-monitor [...] needed only- patient verbalized understanding of plan. VENOUS DOPPLER RIGHT LOWER EXTREMITY KEFLEX [...]
--- OUTSIDE RECORDS SUMMARY | 2020-06-10 16:24 | XMS REPORT | CCD ---
Author Author Aldair Collins Organization Sveta Crandall MD, [facility] Address [address] [place] [address] Phone Care Team Providers Care Preparation Supervisor Canning Name Role Phone PP Unavailable CCM Unavailable Summary Purpose Interface Exchange Insurance Providers Payer name Policy type / Coverage type Covered alliance party ID Effective Begin Date Effective End Date Blue Cross Blue [facility] e Cross/Blue Shield [id number] Unknown Unk nown Family history Father Diagnosis Age At Onset Hypertension Unknown Mother Diagnosis Age At Onset alcohol dependence Unknown Skin cancer Unknown Cancer Unknown Depression Unknown Social History Social History Element Codes Description Effective Dates Marital status Unknown M daniela Coello 05/03/2018 Number of children Unknown 2 05/11/[address]: 777769550 Never smoker 05/11/2015 Alcohol history Unknown occasionally [...] Fill Instructions Levaquin 500 mg tablet RxNorm: 694420 1 Tablet(s) PO daily 01/12/2019 01/18/2019 Active prednisone 10 mg tablet RxNorm: 462941 Tablet(s) PO 01/12/2019 No Stop Date Active 60mg x 2 days, then 50mg x 2 days, then 40mg x 2 days, then 30mg x 2 days, then 20mg x 2 days, then 10mg x 2 days, then 5mg every other day x 2 doses. Singulair 10 mg tablet RxNorm: 814566 1 Tablet(s) PO QHS 01/12/2019 02/10/2019 Active Kenalog 40 mg/mL luis pension for injection RxNorm: 1268754 Milliliter(s) Inj 01/12/2019 01/12/2019 In active ceftriaxone 500 mg s olution for injection RxNorm: 5395202 Inj 01/12/2019 01/12/2019 Inactive Sonia-D 12 Hour 60 mg-120 mg tablet,extended release RxNorm: 878317 1 Tablet(s) PO daily 12/29/2018 01/27/2019 Active Lexapro 10 mg tablet RxNorm: 952950 1.5 Tablet(s) PO QHS 12/29/2018 12/23/2019 Active Bactrim DS 800 mg-16 0 mg tablet RxNorm: 274386 1 Tablet(s) PO BID 12/29/2018 01/07/2019 Inactive Symbicort 160 mcg-4. 5 mcg/actuation HFA aerosol inhaler RxNorm: 5026513 2 Puff(s) INH BID 12/28/2018 No Stop Date Active Xanax 0.25 mg tablet RxNorm: 185343 1 Tablet(s) PO TID as needed anxiety 11/25/2018 01/23/2019 Ac tive Lexapro 10 mg tablet RxNorm: 478967 1.5 Tablet(s) PO QHS 11/23/2018 12/28/2018 Inactive propranolol 40 mg ta blet RxNorm: 417919 Tablet(s) TAKE 1 TABL ET BY MOUTH PRIOR TO EVENT NEEDED 09/20/2018 12/08/2018 Inactive Lexapro 10 mg tablet RxNorm: 575161 1 Tablet(s) PO QHS 08/30/2018 11/22/2018 Inactive Lexapro 10 mg tablet RxNorm: 494626 1 Tablet(s) PO QHS 05/03/2018 08/29/2018 Inactive cyclobenzaprine 5 mg tablet RxNorm: 566969 1 Tablet(s) PO TID as needed 01/05/2018 01/09/2018 In active cyclobenzaprine 5 mg tablet RxNorm: 955122 1 Tablet(s) PO TID as needed 01/05/2018 01/04/2018 In active propranolol 40 mg ta blet RxNorm: 093640 TAKE 1 TABLET BY MOUT H PRIOR TO EVENT NEEDED 07/24/2017 10/11/2017 Inactive Generic For:INDERAL 40 MG TABLET 2016 9:51:34 AM Prozac 10 mg capsule RxNorm: 090178 1 Capsule(s) PO daily may increase after a few weeks if needed 04/09/2017 04/08/2017 Inactive Pt to call if he wants dose increased Prozac 10 mg capsule RxNorm: 190476 1 Capsule(s) PO daily may increase after a few weeks if needed 04/09/2017 05/02/2018 Inactive Pt to call if he wants dose increased Ambien 10 mg tablet RxNorm: 522580 1 Tablet(s) PO HS PRN 03/26/2017 05/02/2018 Inactive betamethasone johnny te 0.1 % topical cream RxNorm: 665289 1 Application TOP BID 03/26/2017 04/08/2017 In active Keflex 500 mg capsule RxNorm: 424789 1 Capsule(s) PO TID 03/26/2017 04/01/2017 Inactive Klonopin 0.5 mg tablet RxNorm: 654905 Tablet(s) TAKE 1 TABLET BY MOUTH EVERY 8 HOURS NEEDED 01/28/2017 02/26/2017 Inactive prednisone 10 mg tablet RxNorm: 360337 Tablet(s) PO UD 11/18/2016 05/02/2018 Inactive 6,5,4,3,2,1 Zithromax Z-Kevin 250 mg tablet RxNorm: 876891 1 Tablet(s) PO UD 11/18/2016 01/27/2017 Inactive 1 zpack Klonopin 0.5 mg tablet RxNorm: 458504 Tablet(s) TAKE 1 TABLET BY MOUTH EVERY 8 HOURS NEEDED 07/09/2016 08/05/2016 Inactive Generic For:KLONOPIN 0.5 MG TABLET N O T I C E PRESCRIPTION PREVIOUSLY AUTHORIZED BY DOCTOR:JULES DELANEY ([id number]) [phone] mirtazapine 7.5 mg t ablet RxNorm: 345596 1 Tablet(s) PO QHS 07/04/2016 04/08/2017 Inactive Belsomra 10 mg tablet RxNorm: 8085614 1 Tablet(s) PO QHS 05/30/2016 05/29/2016 Inactive Belsomra 10 mg tablet RxNorm: 7642217 1 Tablet(s) PO QHS as needed 05/30/2016 03/25/2017 In active propranolol 40 mg ta blet RxNorm: 461790 Tablet(s) 1 - 1.5 Tab let(s) PO prior to event as needed 05/06/2016 07/23/2017 Inactive mirtazapine 15 mg ta blet RxNorm: 046611 1 Tablet(s) PO QHS 04/30/2016 05/29/2016 Inactive amitriptyline 25 mg tablet RxNorm: 502622 1 Tablet(s) PO QPM 04/21/2016 04/29/2016 Inactive propranolol 40 mg ta blet RxNorm: 048373 1 Tablet(s) PO prior to event as needed 04/10/2016 05/05/2016 In active Klonopin 0.5 mg tablet RxNorm: 744278 Tablet(s) TAKE 1 TABLET BY MOUTH EVERY 8 HOURS NEEDED 02/29/2016 03/18/2016 Inactive Generic For:KLONOPIN 0.5 MG TABLET N O T I C E PRESCRIPTION PREVIOUSLY AUTHORIZED BY DOCTOR:JULES DELANEY Sonia-D 24 Hour 18 0 mg-240 mg tablet,extended release RxNorm: 077098 1 Tablet(s) PO daily 01/21/2016 01/20/2016 Inactive Sonia-D 24 Hour 18 0 mg-240 mg tablet,extended release RxNorm: 485798 1 Tablet(s) PO daily 01/21/2016 12/28/2018 Inactive propranolol 40 mg ta blet RxNorm: 048474 1 Tablet(s) PO prior to event as needed 11/20/2015 04/09/2016 In active Zithromax Z-Kevin 250 mg tablet RxNorm: 924439 1 Tablet(s) PO UD 10/19/2015 05/05/2016 Inactive 1 zpack Klonopin 0.5 mg tablet RxNorm: 043977 Tablet(s) TAKE 1 TABLET BY MOUTH EVERY 8 HOURS NEEDED 07/17/2015 08/04/2015 Inactive Generic For:KLONOPIN 0.5 MG TABLET N O T I C E PRESCRIPTION PREVIOUSLY AUTHORIZED BY DOCTOR:JULES DELANEY Klonopin 0.5 mg tablet RxNorm: 198098 Tablet(s) TAKE 1 TABLET BY MOUTH EVERY 8 HOURS NEEDED 07/17/2015 07/16/2015 Inactive Generic For:KLONOPIN 0.5 MG TABLET N O T I C E PRESCRIPTION PREVIOUSLY AUTHORIZED BY DOCTOR:JULES DELANEY Klonopin 0.5 mg tablet RxNorm: 675603 TAKE 1 TABLET BY MOUTH EVERY 8 HOURS NEEDED 07/16/2015 07/16/2015 Inactive Generic For:KLONOPIN 0.5 MG TABLET N O T I C E PRESCRIPTION PREVIOUSLY AUTHORIZED BY DOCTOR:JULES DELANEY Lexapro 10 mg tablet RxNorm: 616362 1 Tablet(s) PO daily 05/11/2015 08/28/2015 Inactive propranolol 40 mg ta blet RxNorm: 556578 1 Tablet(s) PO prior to john n No Start Date 11/19/2015 Inactive Zithromax Z-Kevin 250 mg tablet RxNorm: 508969 1 Tablet(s) PO UD No Start Date 10/18/2015 Inactive 1 zpack Klonopin 0.5 mg tablet RxNorm: 390924 Tablet(s) PO as needed No Start Date 07/17/2015 Inactive Symbicort 160 mcg-4. 5 mcg/actuation HFA aerosol inhaler RxNorm: 1451477 2 Puff(s) INH BID No Start Date 12/27/2018 Inactive Medication Administered Medication Codes Instruc tions Start Date Status Kenalog 40 mg/mL suspension for injection RxNorm: 2097395 Milliliter 01/12/2019 No longer Active ceftriaxone 500 mg solution for injection RxNorm: 3613563 01/12/2019 No longer A ctive Immunizations Vaccine [...] 1: 144/78 Code: 8480-6 BMI: 30.1 Code: 39584-5 Heart Rate 1: 102 bpm Height: 6'7" SpO2: 98% Weight: 267 lbs 12/29/2018 Blood Pressure 1: 138/88 Code: 8480-6 BMI: 30.1 Code: 52790-5 Heart Rate 1: 89 bpm Height: 6'7" SpO2: 98% Temperature: 36.5 (C ) / 97.7 (F) Weight: 267 lbs 09/20/2018 Blood Pressure 1: 132/80 Code: 8480-6 BMI: 29.5 Code: 79050-4 Heart Rate 1: 96 bpm Height: 6'7" SpO2: 98% Weight: 262 lbs 06/09/2018 Blood Pressure 1: 142/84 Code: 8480-6 BMI: 29.7 Code: 22117-3 Heart Rate 1: 89 bpm Height: 6'7" SpO2: 96% Weight: 264 lbs 05/03/2018 Blood Pressure 1: 150/78 Code: 8480-6 BMI: 28.8 Code: 42703-0 Heart Rate 1: 96 bpm Height: 6'7" SpO2: 97% Weight: 256 lbs 03/26/2017 Blood Pressure 1: 146/84 Code: 8480-6 BMI: 29.1 Code: 22267-8 Heart Rate 1: 87 bpm Height: 6'7" SpO2: 97% Weight: 258 lbs 11/28/2016 Blood Pressure 1: 136/68 Code: 8480-6 BMI: 28.8 Code: 35159-0 Heart Rate 1: 76 bpm Height: 6'7" SpO2: 97% Weight: 256 lbs 11/18/2016 Blood Pressure 1: 132/76 Code: 8480-6 BMI: 28.8 Code: 01726-9 Heart Rate 1: 97 bpm Height: 6'7" SpO2: 98% Temperature: 37.3 (C ) / 99.2 (F) Weight: 256 lbs 05/06/2016 Blood Pressure 1: 140/92 Code: 8480-6 BMI: 27.7 Code: 35949-5 Heart Rate 1: 103 bpm Height: 6'7" SpO2: 98% Weight: 246 lbs 04/21/2016 Blood Pressure 1: 152/80 Code: 8480-6 BMI: 28.1 Code: 27934-5 Heart Rate 1: 97 bpm Height: 6'7" SpO2: 98% Weight: 249 lbs 08/29/2015 Blood Pressure 1: 120/80 Code: 8480-6 BMI: 26.9 Code: 21711-9 Height: 6'7" Weight: 239 lbs 05/11/2015 Blood Pressure 1: 132/80 Code: 8480-6 Blood Pressure 2: 122/80 Code: 8480-6 BMI: 27.0 Code: 30553-4 Heart Rate 1: 92 bpm Height: 6'7" [...] Encounters Encounter Performer Loca tion Codes Date [id number] EST. PATIENT, LEVEL IV Diagnosis: Acute bronchitis due to other specified organisms[ICD10: J20.8] Diagnosis: Acute laryngopharyngitis[ICD10: J06.0] Diagnosis: Other allergic rhinitis[ICD10: J30.89] Fay Crandall MD, [facility] CPT-4: 33853 01/12/2019 ([id number]) 72509 EST. P ATIENT, LEVEL III Diagnosis: Acute laryngopharyngitis[ICD10: J06.0] Diagnosis: Acute recurrent maxillary sinusitis[ICD10: J01.01] Diagnosis: Cough[ICD10: R05] Diagnosis: Generalized anxiety disorder[ICD10: F41.1] Sveta Crandall MD, C CPT-4: 37455 12/29/2018 ([id number]) 38335 EST. P ATIENT, LEVEL III Diagnosis: Generalized anxiety disorder[ICD10: F41.1] Sveta Crandall MD, [facility] CPT-4: 11377 09/20/2018 ([id number]) 91743 EST. P ATIENT, LEVEL III Diagnosis: Generalized anxiety disorder[ICD10: F41.1] Sveta Crandall MD, C CPT-4: 31296 06/09/2018 ([id number]) PREV VISIT E ST AGE 40-64 Diagnosis: Encounter for general adult medical examination without abnormal findings[ICD10: Z00.00] Sveta Crandall MD, [facility] CPT-4: 45678 05/03/2018 ([id number]) 80316 EST. P ATIENT, LEVEL III Diagnosis: Cellulitis of left toe[ICD10: L03.032] Diagnosis: Adjustment insomnia[ICD10: F51.02] Diagnosis: Dermatitis, unspecified[ICD10: L30.9] Alise Crandall MD, [facility] CPT-4: 50868 03/26/2017 ([id number]) 14750 EST. P ATIENT, LEVEL III Diagnosis: Cough[ICD10: R05] Alise Crandall MD, [facility] CPT-4: 47224 11/28/2016 [id number] EST. PATIENT, LEVEL III Diagnosis: Acute laryngopharyngitis[ICD10: J06.0] Diagnosis: Acute bronchitis due to other specified organisms[ICD10: J20.8] Fay Crandall MD, [facility] CPT-4: 18102 11/18/2016 ([id number]) 60289 EST. P ATIENT, LEVEL III Diagnosis: Generalized anxiety disorder[ICD10: F41.1] Sveta Crandall MD, [facility] CPT-4: 44827 05/06/2016 ([id number]) 20817 EST. P ATIENT, LEVEL III Diagnosis: Generalized anxiety disorder[ICD10: F41.1] Sveta Crandall MD, C CPT-4: 85957 04/21/2016 ([id number]) 66717 EST. P ATIENT, LEVEL III Diagnosis: Generalized anxiety disorder[ICD10: F41.1] Sveta Crandall MD, C CPT-4: 67848 08/29/2015 ([id number]) PREV VISIT E ST AGE 40-64 Diagnosis: Well adult exam[ICD9: V70.0] Diagnosis: Anxiety[ICD9: 300.00] Alise Crandall MD, [facility] CPT-4: 29829 05/11/2015 Plan of Care Planned Activity Notes [...] allergy spray. 01/12/2019 Appointment: Fay Dave WPtel: [facility] [address] (30 min) Complex 01/12/2019 Patient Education: [...] to pharmacy 12/29/2018 Appointment: Sveta Crandall WPtel: [address] [place] [address] (15 min) Moderate 12/29/2018 Patient Education: Patient [...] current medications. 09/20/2018 Appointment: Sveta Crandall WPtel: [facility] [address] (15 min) Moderate 09/20/2018 Patient Education: Patient Medication Summary Completed 09/20/2018 Visit Plan: Anxiety and Depression - the pt has symptoms have been fairly well controlled since the last office visit. The pt has expected periods of exacerbation with abatement of the symptoms with change in situa tional exposure. No change in current medications. 06/09/2018 Appointment: Sveta Crandall WPtel: [facility] (15 min) Moderate 06/09/2018 Patient Education: [...] on lexapro. 05/03/2018 Appointment: Sveta Crandall WPtel: [facility] (15 min) Moderate 05/03/2018 Patient Education: [...] of plan. 03/26/2017 Appointment: Alise Collins WPtel: [phone] [place] (15 min) Moderate 03/26/2017 Patient [...] worsen. 11/18/2016 Appointment: Fay Dave WPtel: [address] [facility] (30 min) Complex 11/18/2016 Patient Education: [...] current medications. 08/29/2015 Appointment: Sveta Crandall WPtel: [facility] [place] (15 min) Moderate 08/29/2015 Patient Education: Patient Medication Summary Completed 08/29/2015 Appointment: Sveta Crandall WPtel: [address] [facility] [place] (15 min) Moderate 07/31/2015 Appointment: Sveta Crandall WPtel: [address] [facility] (15 min) Moderate 07/05/2015 Visit Plan: [...] Completed 05/11/2015 Instructions Comment . Cough-recent [facility]-symptoms improving-recommend patient take sonia daily-monitor symptoms [...]
--- OUTSIDE RECORDS SUMMARY | 2020-06-10 16:25 | XMS REPORT | CCD ---
Author Author Aldair Collins Organization Sveta Crandall MD, [facility] Address [address] [place] [address] Phone Care Team Providers Care Scrap Picker Name Role Phone PP Unavailable CCM Unavailable Summary Purpose Interface Exchange Insurance Providers Payer name Policy type / Coverage type Covered constitution party ID Effective Begin Date Effective End Date Blue Cross Blue [facility] e Cross/Blue Shield [id number] Unknown Unk nown Family history Father Diagnosis Age At Onset Hypertension Unknown Mother Diagnosis Age At Onset alcohol dependence Unknown Skin cancer Unknown Cancer Unknown Depression Unknown Social History Social History Element Codes Description Effective Dates Marital status Unknown M daniela Coello 05/03/2018 Number of children Unknown 2 05/11/[address]: 461436110 Never smoker 05/11/2015 Alcohol history Unknown occasionally drinks alcohol 05/11/2015 Allergies, Adverse Reactions, Alerts Substance Reaction Codes Entered Date Inactivated Date Status * NO KNOWN DRUG SANTANA RGIES Unknown 08/29/2015 No Inactive Date Active Past Medical History Illness Codes Condition Status Onset Date Resolved Date Generalized anxiety disorder ICD-9: 300.00 ICD-10: F41.1 [...] ICD-9: 465.0 ICD-10: J06.0 Active 11/17/2016 Unknown Anxiety ICD-9: 300.00 Active 05/10/2015 Unknow n Well adult exam ICD-9: V70.0 Active 05/10/2015 Unknown Problems Condition Codes Effectiv e Dates Condition Status Generalized anxiety disorder ICD-9: 300.00 ICD-10: F41.1 [...] itis ICD-9: 465.0 ICD-10: J06.0 11/17/2016 Active Anxiety ICD-9: 300.00 05/10/2015 Active Well adult exam ICD-9: V70.0 05/10/2015 Active Medications Medication Codes Instruc tions Start Date Stop Date Sta tus Fill Instructions Symbicort 160 mcg-4. 5 mcg/actuation HFA aerosol inhaler RxNorm: 1481710 2 Puff(s) INH BID 12/28/2018 No Stop Date Active Xanax 0.25 mg tablet RxNorm: 059346 1 Tablet(s) PO TID as needed anxiety 11/25/2018 01/23/2019 Ac tive Lexapro 10 mg tablet RxNorm: 232121 1.5 Tablet(s) PO QHS 11/23/2018 03/22/2019 Active propranolol 40 mg ta blet RxNorm: 263231 Tablet(s) TAKE 1 TABL ET BY MOUTH PRIOR TO EVENT NEEDED 09/20/2018 12/08/2018 Inactive Lexapro 10 mg tablet RxNorm: 013115 1 Tablet(s) PO QHS 08/30/2018 11/22/2018 Inactive Lexapro 10 mg tablet RxNorm: 699037 1 Tablet(s) PO QHS 05/03/2018 08/29/2018 Inactive cyclobenzaprine 5 mg tablet RxNorm: 809229 1 Tablet(s) PO TID as needed 01/05/2018 01/09/2018 In active cyclobenzaprine 5 mg tablet RxNorm: 439101 1 Tablet(s) PO TID as needed 01/05/2018 01/04/2018 In active propranolol 40 mg ta blet RxNorm: 868228 TAKE 1 TABLET BY MOUT H PRIOR TO EVENT NEEDED 07/24/2017 10/11/2017 Inactive Generic For:INDERAL 40 MG TABLET 2016 9:51:34 AM Prozac 10 mg capsule RxNorm: 851525 1 Capsule(s) PO daily may increase after a few weeks if needed 04/09/2017 04/08/2017 Inactive Pt to call if he wants dose increased Prozac 10 mg capsule RxNorm: 991401 1 Capsule(s) PO daily may increase after a few weeks if needed 04/09/2017 05/02/2018 Inactive Pt to call if he wants dose increased Ambien 10 mg tablet RxNorm: 395702 1 Tablet(s) PO HS PRN 03/26/2017 05/02/2018 Inactive betamethasone johnny te 0.1 % topical cream RxNorm: 804117 1 Application TOP BID 03/26/2017 04/08/2017 In active Keflex 500 mg capsule RxNorm: 965368 1 Capsule(s) PO TID 03/26/2017 04/01/2017 Inactive Klonopin 0.5 mg tablet RxNorm: 728715 Tablet(s) TAKE 1 TABLET BY MOUTH EVERY 8 HOURS NEEDED 01/28/2017 02/26/2017 Inactive prednisone 10 mg tablet RxNorm: 147104 Tablet(s) PO UD 11/18/2016 05/02/2018 Inactive 6,5,4,3,2,1 Zithromax Z-Kevin 250 mg tablet RxNorm: 754044 1 Tablet(s) PO UD 11/18/2016 01/27/2017 Inactive 1 zpack Klonopin 0.5 mg tablet RxNorm: 339483 Tablet(s) TAKE 1 TABLET BY MOUTH EVERY 8 HOURS NEEDED 07/09/2016 08/05/2016 Inactive Generic For:KLONOPIN 0.5 MG TABLET N O T I C E PRESCRIPTION PREVIOUSLY AUTHORIZED BY DOCTOR:JULES DELANEY [phone] mirtazapine 7.5 mg t ablet RxNorm: 937725 1 Tablet(s) PO QHS 07/04/2016 04/08/2017 Inactive Belsomra 10 mg tablet RxNorm: 9430643 1 Tablet(s) PO QHS 05/30/2016 05/29/2016 Inactive Belsomra 10 mg tablet RxNorm: 1130661 1 Tablet(s) PO QHS as needed 05/30/2016 03/25/2017 In active propranolol 40 mg ta blet RxNorm: 929574 Tablet(s) 1 - 1.5 Tab let(s) PO prior to event as needed 05/06/2016 07/23/2017 Inactive mirtazapine 15 mg ta blet RxNorm: 478787 1 Tablet(s) PO QHS 04/30/2016 05/29/2016 Inactive amitriptyline 25 mg tablet RxNorm: 712885 1 Tablet(s) PO QPM 04/21/2016 04/29/2016 Inactive propranolol 40 mg ta blet RxNorm: 010990 1 Tablet(s) PO prior to event as needed 04/10/2016 05/05/2016 In active Klonopin 0.5 mg tablet RxNorm: 657764 Tablet(s) TAKE 1 TABLET BY MOUTH EVERY 8 HOURS NEEDED 02/29/2016 03/18/2016 Inactive Generic For:KLONOPIN 0.5 MG TABLET N O T I C E PRESCRIPTION PREVIOUSLY AUTHORIZED BY DOCTOR:JULES DELANEY Augustine-D 24 Hour 18 0 mg-240 mg tablet,extended release RxNorm: 108029 1 Tablet(s) PO daily 01/21/2016 02/29/2016 Inactive Augustine-D 24 Hour 18 0 mg-240 mg tablet,extended release RxNorm: 411255 1 Tablet(s) PO daily 01/21/2016 01/20/2016 Inactive propranolol 40 mg ta blet RxNorm: 152001 1 Tablet(s) PO prior to event as needed 11/20/2015 04/09/2016 In active Zithromax Z-Kevin 250 mg tablet RxNorm: 196814 1 Tablet(s) PO UD 10/19/2015 05/05/2016 Inactive 1 zpack Klonopin 0.5 mg tablet RxNorm: 133610 Tablet(s) TAKE 1 TABLET BY MOUTH EVERY 8 HOURS NEEDED 07/17/2015 08/04/2015 Inactive Generic For:KLONOPIN 0.5 MG TABLET N O T I C E PRESCRIPTION PREVIOUSLY AUTHORIZED BY DOCTOR:JULES DELANEY Klonopin 0.5 mg tablet RxNorm: 932904 Tablet(s) TAKE 1 TABLET BY MOUTH EVERY 8 HOURS NEEDED 07/17/2015 07/16/2015 Inactive Generic For:KLONOPIN 0.5 MG TABLET N O T I C E PRESCRIPTION PREVIOUSLY AUTHORIZED BY DOCTOR:JULES DELANEY Klonopin 0.5 mg tablet RxNorm: 913564 TAKE 1 TABLET BY MOUTH EVERY 8 HOURS NEEDED 07/16/2015 07/16/2015 Inactive Generic For:KLONOPIN 0.5 MG TABLET N O T I C E PRESCRIPTION PREVIOUSLY AUTHORIZED BY DOCTOR:JULES DELANEY Lexapro 10 mg tablet RxNorm: 182356 1 Tablet(s) PO daily 05/11/2015 08/28/2015 Inactive propranolol 40 mg ta blet RxNorm: 488829 1 Tablet(s) PO prior to john n No Start Date 11/19/2015 Inactive Zithromax Z-Kevin 250 mg tablet RxNorm: 642647 1 Tablet(s) PO UD No Start Date 10/18/2015 Inactive 1 zpack Klonopin 0.5 mg tablet RxNorm: 460833 Tablet(s) PO as needed No Start Date 07/17/2015 Inactive Symbicort 160 mcg-4. 5 mcg/actuation HFA aerosol inhaler RxNorm: 6864772 2 Puff(s) INH BID No Start Date 12/27/2018 Inactive Medication Administered No Medication Administered data Immunizations Vaccine Codes Date Status Tetanus, Diptheria, Pertussis CVX: 113 04/02/2015 completed Tetanus/Diptheria CVX: 113 04/02/2015 completed Assessments Condition Codes Effectiv e Dates Generalized anxiety disorder ICD-10: F41.1 ICD-9: 300.00 09/20/2018 Encounter for general adult medical exam ination without abnormal findings ICD-10: Z00.00 ICD-9: V70.0 05/03/2018 Adjustment insomnia ICD-10: F51.02 ICD-9: 307.41 03/26/2017 Dermatitis, unspecified ICD-10: L30. 9 ICD-9: 692.9 03/26/2017 Cellulitis of left toe ICD-10: L03.0 32 ICD-9: 681.11 03/26/2017 Cough ICD-10: R05 ICD-9: 786.2 11/28/2016 Acute laryngopharyngitis ICD-10: J06 .0 ICD-9: 465.0 11/18/2016 Acute bronchitis due to other specified organisms ICD-10: J20.8 ICD-9: 466.0 11/18/2016 Well adult exam ICD-9: V70.0 05/11/2015 Anxiety ICD-9: 300.00 Reason For Visit Reason For Visit Effective Dates Notes anxiety 09/20/2018 anxiety 06/09/2018 well man exam (40-65 years) 05/03/2018 foot pain 03/26/2017 chest congestion 11/28/2016 cough 11/18/2016 anxiety 05/06/2016 anxiety 04/21/2016 well man exam (40-65 years) 05/11/2015 Results No Results data Review of Systems System Result Effective Dates Constitutional No recent illness 09/20/2018 Constitutional No [...] No alteration of consciousness 05/06/2016 Psychiatric anxiety 0703/2016 Constitutional No recent illness 04/21/2016 Constitutional No [...] eezes 11/18/2016 None Full Exam - General [facility] Constitutional general appearance Overall: well developed 05/06/2016 [...] CPT-4: J3301 11/18/2016 Vital Signs Date Vital 09/20/2018 Blood Pressure 1: 132/80 Code: 8480-6 BMI: 29.5 Code: 55933-8 Heart Rate 1: 96 bpm Height: 6'7" SpO2: 98% Weight: 262 lbs 06/09/2018 Blood Pressure 1: 142/84 Code: 8480-6 BMI: 29.7 Code: 19375-2 Heart Rate 1: 89 bpm Height: 6'7" SpO2: 96% Weight: 264 lbs 05/03/2018 Blood Pressure 1: 150/78 Code: 8480-6 BMI: 28.8 Code: 00744-3 Heart Rate 1: 96 bpm Height: 6'7" SpO2: 97% Weight: 256 lbs 03/26/2017 Blood Pressure 1: 146/84 Code: 8480-6 BMI: 29.1 Code: 10858-3 Heart Rate 1: 87 bpm Height: 6'7" SpO2: 97% Weight: 258 lbs 11/28/2016 Blood Pressure 1: 136/68 Code: 8480-6 BMI: 28.8 Code: 08139-3 Heart Rate 1: 76 bpm Height: 6'7" SpO2: 97% Weight: 256 lbs 11/18/2016 Blood Pressure 1: 132/76 Code: 8480-6 BMI: 28.8 Code: 35660-5 Heart Rate 1: 97 bpm Height: 6'7" SpO2: 98% Temperature: 37.3 (C ) / 99.2 (F) Weight: 256 lbs 05/06/2016 Blood Pressure 1: 140/92 Code: 8480-6 BMI: 27.7 Code: 10631-9 Heart Rate 1: 103 bpm Height: 6'7" SpO2: 98% Weight: 246 lbs 04/21/2016 Blood Pressure 1: 152/80 Code: 8480-6 BMI: 28.1 Code: 65130-7 Heart Rate 1: 97 bpm Height: 6'7" SpO2: 98% Weight: 249 lbs 08/29/2015 Blood Pressure 1: 120/80 Code: 8480-6 BMI: 26.9 Code: 90977-4 Height: 6'7" Weight: 239 lbs 05/11/2015 Blood Pressure 1: 132/80 Code: 8480-6 Blood Pressure 2: 122/80 Code: 8480-6 BMI: 27.0 Code: 07033-7 Heart Rate 1: 92 bpm Height: 6'7" SpO2: 98% Weight: 240 lbs Functional Status No Functional Status data History of Present Illness Symptom Name Status Resu lt Effective Date Notes anxiety Quality chronic 09/20/2018 None anxiety Quality [...] Encounters Encounter Performer Loca tion Codes Date ([id number]) [id number] EST. P ATIENT, LEVEL III Diagnosis: Generalized anxiety disorder[ICD10: F41.1] Sveta Crandall MD, LL C CPT-4: 38319 09/20/2018 ([id number]) 33293 EST. P ATIENT, LEVEL III Diagnosis: Generalized anxiety disorder[ICD10: F41.1] Sveta Crandall MD, LL C CPT-4: 61388 06/09/2018 ([id number]) PREV VISIT E ST AGE 40-64 Diagnosis: Encounter for general adult medical examination without abnormal findings[ICD10: Z00.00] Sveta Crandall MD, [facility] CPT-4: 53210 05/03/2018 ([id number]) 31019 EST. P ATIENT, LEVEL III Diagnosis: Cellulitis of left toe[ICD10: L03.032] Diagnosis: Adjustment insomnia[ICD10: F51.02] Diagnosis: Dermatitis, unspecified[ICD10: L30.9] Alise Crandall MD, [facility] CPT-4: 24996 03/26/2017 ([id number]) 98486 EST. P ATIENT, LEVEL III Diagnosis: Cough[ICD10: R05] Alise Crandall MD, [facility] CPT-4: 90264 11/28/2016 [id number] EST. PATIENT, LEVEL III Diagnosis: Acute laryngopharyngitis[ICD10: J06.0] Diagnosis: Acute bronchitis due to other specified organisms[ICD10: J20.8] Fay Crandall MD, [facility] CPT-4: 51248 11/18/2016 ([id number]) 83518 EST. P ATIENT, LEVEL III Diagnosis: Generalized anxiety disorder[ICD10: F41.1] Sveta Crandall MD, C CPT-4: 36696 05/06/2016 ([id number]) 81974 EST. P ATIENT, LEVEL III Diagnosis: Generalized anxiety disorder[ICD10: F41.1] Sveta Crandall MD, C CPT-4: 75294 04/21/2016 ([id number]) 14791 EST. P ATIENT, LEVEL III Diagnosis: Generalized anxiety disorder[ICD10: F41.1] Sveta Crandall MD, C CPT-4: 82243 08/29/2015 ([id number]) PREV VISIT E ST AGE 40-64 Diagnosis: Well adult exam[ICD9: V70.0] Diagnosis: Anxiety[ICD9: 300.00] Alise Crandall MD, [facility] CPT-4: 34704 05/11/2015 Plan of Care Planned Activity Notes C odes Status Date Visit Plan: Chronic Anxiety - the p t has symptoms of chronic anxiety and depression that have been fairly well controlled since the last office visit. The pt has expected periods of exacerbation with abatement of the symptoms with change in situational exposure. No change in current medications. 09/20/2018 Appointment: Sveta Carndall WPtel: [facility]1 [id number] (15 min) Moderate 09/20/2018 Patient Education: Patient Medication Summary Completed 09/20/2018 Visit Plan: Anxiety and Depression - the pt has symptoms have been fairly well controlled since the last office visit. The pt has expected periods of exacerbation with abatement of the symptoms with change in situa tional exposure. No change in current medications. 06/09/2018 Appointment: Sveta Crandall WPtel: [facility]3 [id number] (15 min) Moderate 06/09/2018 Patient Education: [...] on lexapro. 05/03/2018 Appointment: Sveta Crandall WPtel: [facility]8 [id number] (15 min) Moderate 05/03/2018 Patient Education: Patient [...] 03/26/2017 Appointment: Alise Collins WPtel: [phone] [id number] (15 min) Moderate 03/26/2017 Patient Education: Patient Medication Summary Completed 03/26/2017 Visit Plan: Cough-recent bronchitis -symptoms improving- recommend patient take augustine daily-monitor symptoms and call [...] worsen. 11/18/2016 Appointment[id number] ([facility] min) Complex 11/18/2016 Patient Education: [...] medications. 08/29/2015 Appointment: Sveta Crandall WPtel: [phone] (15 min) Moderate 08/29/2015 Patient Education: Patient Medication Summary Completed 08/29/2015 Appointment: Sveta Crandall WPtel: [address] (15 min) Moderate 07/31/2015 Appointment: Sveta Crandall WPtel: [phone] (15 min) Moderate 07/05/2015 Visit Plan: [...] recommendation for pt to start on lexapro. . Anxiety - the zain ent has [...]
--- OUTSIDE RECORDS SUMMARY | 2020-06-10 16:25 | XMS REPORT | CCD ---
Author Author Aldair Collins Organization Sveta Crandall MD, [facility] Address [address] [place] [address] Phone Care Team Providers Care Cuff Turner Name Role Phone PP Unavailable CCM Unavailable Summary Purpose Interface Exchange Insurance Providers Payer name Policy type / Coverage type Covered constitution party ID Effective Begin Date Effective End Date Blue Cross Blue [facility] e Cross/Blue Shield [id number] Unknown Unk nown Family history Father Diagnosis Age At Onset Hypertension Unknown Mother Diagnosis Age At Onset alcohol dependence Unknown Skin cancer Unknown Cancer Unknown Depression Unknown Social History Social History Element Codes Description Effective Dates Marital status Unknown M daniela Coello 05/03/2018 Number of children Unknown 2 05/11/[address]: 507928705 Never smoker 05/11/2015 Alcohol history Unknown occasionally drinks alcohol 05/11/2015 Allergies, Adverse Reactions, Alerts Substance Reaction Codes Entered Date Inactivated Date Status * NO KNOWN DRUG SANTANA RGIES Unknown 08/29/2015 No Inactive Date Active Past Medical History Illness Codes Condition Status Onset Date Resolved Date Acute laryngopharyng itis ICD-9: 465.0 ICD-10: J06.0 [...] ICD-9: 692.9 ICD-10: L30.9 Active 03/26/2017 Unknown Acute bronchitis due to other specified organisms ICD-9: 466.0 ICD-10: J20.8 Active 11/17/2016 Unknown Anxiety ICD-9: 300.00 Active 05/10/2015 Unknow n Well adult exam ICD-9: V70.0 Active 05/10/2015 Unknown Problems Condition Codes Effectiv e Dates Condition Status Acute laryngopharyng itis ICD-9: 465.0 ICD-10: J06.0 [...] unspecified ICD-9: 692.9 ICD-10: L30.9 03/26/2017 Active Acute bronchitis due to other specified organisms ICD-9: 466.0 ICD-10: J20.8 11/17/2016 Active Anxiety ICD-9: 300.00 05/10/2015 Active Well adult exam ICD-9: V70.0 05/10/2015 Active Medications Medication Codes Instruc tions Start Date Stop Date Sta tus Fill Instructions Sonia-D 12 Hour 60 mg-120 mg tablet,extended release RxNorm: 639168 1 Tablet(s) PO daily 12/29/2018 01/27/2019 Active Lexapro 10 mg tablet RxNorm: 424089 1.5 Tablet(s) PO QHS 12/29/2018 12/23/2019 Active Bactrim DS 800 mg-16 0 mg tablet RxNorm: 773842 1 Tablet(s) PO BID 12/29/2018 01/07/2019 Active Symbicort 160 mcg-4. 5 mcg/actuation HFA aerosol inhaler RxNorm: 5851608 2 Puff(s) INH BID 12/28/2018 No Stop Date Active Xanax 0.25 mg tablet RxNorm: 325208 1 Tablet(s) PO TID as needed anxiety 11/25/2018 01/23/2019 Ac tive Lexapro 10 mg tablet RxNorm: 414894 1.5 Tablet(s) PO QHS 11/23/2018 12/28/2018 Inactive propranolol 40 mg ta blet RxNorm: 686572 Tablet(s) TAKE 1 TABL ET BY MOUTH PRIOR TO EVENT NEEDED 09/20/2018 12/08/2018 Inactive Lexapro 10 mg tablet RxNorm: 333378 1 Tablet(s) PO QHS 08/30/2018 11/22/2018 Inactive Lexapro 10 mg tablet RxNorm: 233615 1 Tablet(s) PO QHS 05/03/2018 08/29/2018 Inactive cyclobenzaprine 5 mg tablet RxNorm: 726351 1 Tablet(s) PO TID as needed 01/05/2018 01/09/2018 In active cyclobenzaprine 5 mg tablet RxNorm: 284828 1 Tablet(s) PO TID as needed 01/05/2018 01/04/2018 In active propranolol 40 mg ta blet RxNorm: 047551 TAKE 1 TABLET BY MOUT H PRIOR TO EVENT NEEDED 07/24/2017 10/11/2017 Inactive Generic For:INDERAL 40 MG TABLET 2016 9:51:34 AM Prozac 10 mg capsule RxNorm: 789315 1 Capsule(s) PO daily may increase after a few weeks if needed 04/09/2017 04/08/2017 Inactive Pt to call if he wants dose increased Prozac 10 mg capsule RxNorm: 829495 1 Capsule(s) PO daily may increase after a few weeks if needed 04/09/2017 05/02/2018 Inactive Pt to call if he wants dose increased Ambien 10 mg tablet RxNorm: 562164 1 Tablet(s) PO HS PRN 03/26/2017 05/02/2018 Inactive betamethasone johnny te 0.1 % topical cream RxNorm: 569627 1 Application TOP BID 03/26/2017 04/08/2017 In active Keflex 500 mg capsule RxNorm: 917583 1 Capsule(s) PO TID 03/26/2017 04/01/2017 Inactive Klonopin 0.5 mg tablet RxNorm: 700859 Tablet(s) TAKE 1 TABLET BY MOUTH EVERY 8 HOURS NEEDED 01/28/2017 02/26/2017 Inactive prednisone 10 mg tablet RxNorm: 183768 Tablet(s) PO UD 11/18/2016 05/02/2018 Inactive 6,5,4,3,2,1 Zithromax Z-Kevin 250 mg tablet RxNorm: 136244 1 Tablet(s) PO UD 11/18/2016 01/27/2017 Inactive 1 zpack Klonopin 0.5 mg tablet RxNorm: 385990 Tablet(s) TAKE 1 TABLET BY MOUTH EVERY 8 HOURS NEEDED 07/09/2016 08/05/2016 Inactive Generic For:KLONOPIN 0.5 MG TABLET N O T I C E PRESCRIPTION PREVIOUSLY AUTHORIZED BY DOCTOR:JULES DELANEY [phone] mirtazapine 7.5 mg t ablet RxNorm: 594069 1 Tablet(s) PO QHS 07/04/2016 04/08/2017 Inactive Belsomra 10 mg tablet RxNorm: 5137189 1 Tablet(s) PO QHS 05/30/2016 05/29/2016 Inactive Belsomra 10 mg tablet RxNorm: 9770566 1 Tablet(s) PO QHS as needed 05/30/2016 03/25/2017 In active propranolol 40 mg ta blet RxNorm: 312463 Tablet(s) 1 - 1.5 Tab let(s) PO prior to event as needed 05/06/2016 07/23/2017 Inactive mirtazapine 15 mg ta blet RxNorm: 653315 1 Tablet(s) PO QHS 04/30/2016 05/29/2016 Inactive amitriptyline 25 mg tablet RxNorm: 828611 1 Tablet(s) PO QPM 04/21/2016 04/29/2016 Inactive propranolol 40 mg ta blet RxNorm: 121818 1 Tablet(s) PO prior to event as needed 04/10/2016 05/05/2016 In active Klonopin 0.5 mg tablet RxNorm: 741032 Tablet(s) TAKE 1 TABLET BY MOUTH EVERY 8 HOURS NEEDED 02/29/2016 03/18/2016 Inactive Generic For:KLONOPIN 0.5 MG TABLET N O T I C E PRESCRIPTION PREVIOUSLY AUTHORIZED BY DOCTOR:JULES DELANEY [phone] Sonia-D 24 Hour 18 0 mg-240 mg tablet,extended release RxNorm: 291223 1 Tablet(s) PO daily 01/21/2016 01/20/2016 Inactive Sonia-D 24 Hour 18 0 mg-240 mg tablet,extended release RxNorm: 274383 1 Tablet(s) PO daily 01/21/2016 12/28/2018 Inactive propranolol 40 mg ta blet RxNorm: 049630 1 Tablet(s) PO prior to event as needed 11/20/2015 04/09/2016 In active Zithromax Z-Kevin 250 mg tablet RxNorm: 323351 1 Tablet(s) PO UD 10/19/2015 05/05/2016 Inactive 1 zpack Klonopin 0.5 mg tablet RxNorm: 155937 Tablet(s) TAKE 1 TABLET BY MOUTH EVERY 8 HOURS NEEDED 07/17/2015 08/04/2015 Inactive Generic For:KLONOPIN 0.5 MG TABLET N O T I C E PRESCRIPTION PREVIOUSLY AUTHORIZED BY DOCTOR:JULES DELANEY Klonopin 0.5 mg tablet RxNorm: 809950 Tablet(s) TAKE 1 TABLET BY MOUTH EVERY 8 HOURS NEEDED 07/17/2015 07/16/2015 Inactive Generic For:KLONOPIN 0.5 MG TABLET N O T I C E PRESCRIPTION PREVIOUSLY AUTHORIZED BY DOCTOR:JULES DELANEY Klonopin 0.5 mg tablet RxNorm: 446445 TAKE 1 TABLET BY MOUTH EVERY 8 HOURS NEEDED 07/16/2015 07/16/2015 Inactive Generic For:KLONOPIN 0.5 MG TABLET N O T I C E PRESCRIPTION PREVIOUSLY AUTHORIZED BY DOCTOR:JULES DELANEY Lexapro 10 mg tablet RxNorm: 502280 1 Tablet(s) PO daily 05/11/2015 08/28/2015 Inactive propranolol 40 mg ta blet RxNorm: 455737 1 Tablet(s) PO prior to john n No Start Date 11/19/2015 Inactive Zithromax Z-Kevin 250 mg tablet RxNorm: 756793 1 Tablet(s) PO UD No Start Date 10/18/2015 Inactive 1 fadi Klonopin 0.5 mg tablet RxNorm: 836941 Tablet(s) PO as needed No Start Date 07/17/2015 Inactive Symbicort 160 mcg-4. 5 mcg/actuation HFA aerosol inhaler RxNorm: 0810025 2 Puff(s) INH BID No Start Date 12/27/2018 Inactive Medication Administered No Medication Administered data Immunizations Vaccine Codes Date Status Tetanus, Diptheria, Pertussis CVX: 113 04/02/2015 completed Tetanus/Diptheria CVX: 113 04/02/2015 completed Assessments Condition Codes Effectiv e Dates Acute recurrent maxillary sinusitis ICD-10: J01.01 ICD-9: 461.0 12/29/2018 Cough ICD-10: R05 ICD-9: 786.2 12/29/2018 Acute laryngopharyngitis ICD-10: J06 .0 ICD-9: 465.0 12/29/2018 Generalized anxiety disorder ICD-10: F41.1 ICD-9: 300.00 12/29/2018 Encounter for general adult medical exam ination without abnormal findings ICD-10: Z00.00 ICD-9: V70.0 05/03/2018 Cellulitis of left toe ICD-10: L03.0 32 ICD-9: 681.11 03/26/2017 Dermatitis, unspecified ICD-10: L30. 9 ICD-9: 692.9 03/26/2017 Adjustment insomnia ICD-10: F51.02 ICD-9: 307.41 03/26/2017 Acute bronchitis due to other specified organisms ICD-10: J20.8 ICD-9: 466.0 11/18/2016 Anxiety ICD-9: 300.00 Well adult exam ICD-9: V70.0 05/11/2015 Reason For Visit Reason For Visit Effective Dates Notes cough 12/29/2018 anxiety 09/20/2018 anxiety 06/09/2018 well man exam (40-65 years) 05/03/2018 foot pain 03/26/2017 chest congestion 11/28/2016 cough 11/18/2016 anxiety 05/06/2016 anxiety 04/21/2016 well man exam (40-65 years) 05/11/2015 Results No Results data Review of Systems System Result Effective Dates Constitutional recent illness 12/29/2018 Constitutional No chills [...] No alteration of consciousness 05/03/2018 Psychiatric anxiety 07/12/2017 Constitutional recent illness 03/26/2017 Constitutional No anorexia [...] CPT-4: J3301 11/18/2016 Vital Signs Date Vital 12/29/2018 Blood Pressure 1: 138/88 Code: 8480-6 BMI: 30.1 Code: 04948-4 Heart Rate 1: 89 bpm Height: 6'7" SpO2: 98% Temperature: 36.5 (C ) / 97.7 (F) Weight: 267 lbs 09/20/2018 Blood Pressure 1: 132/80 Code: 8480-6 BMI: 29.5 Code: 46153-2 Heart Rate 1: 96 bpm Height: 6'7" SpO2: 98% Weight: 262 lbs 06/09/2018 Blood Pressure 1: 142/84 Code: 8480-6 BMI: 29.7 Code: 36624-8 Heart Rate 1: 89 bpm Height: 6'7" SpO2: 96% Weight: 264 lbs 05/03/2018 Blood Pressure 1: 150/78 Code: 8480-6 BMI: 28.8 Code: 28195-6 Heart Rate 1: 96 bpm Height: 6'7" SpO2: 97% Weight: 256 lbs 03/26/2017 Blood Pressure 1: 146/84 Code: 8480-6 BMI: 29.1 Code: 06981-6 Heart Rate 1: 87 bpm Height: 6'7" SpO2: 97% Weight: 258 lbs 11/28/2016 Blood Pressure 1: 136/68 Code: 8480-6 BMI: 28.8 Code: 98470-9 Heart Rate 1: 76 bpm Height: 6'7" SpO2: 97% Weight: 256 lbs 11/18/2016 Blood Pressure 1: 132/76 Code: 8480-6 BMI: 28.8 Code: 18655-4 Heart Rate 1: 97 bpm Height: 6'7" SpO2: 98% Temperature: 37.3 (C ) / 99.2 (F) Weight: 256 lbs 05/06/2016 Blood Pressure 1: 140/92 Code: 8480-6 BMI: 27.7 Code: 70527-0 Heart Rate 1: 103 bpm Height: 6'7" SpO2: 98% Weight: 246 lbs 04/21/2016 Blood Pressure 1: 152/80 Code: 8480-6 BMI: 28.1 Code: 49290-5 Heart Rate 1: 97 bpm Height: 6'7" SpO2: 98% Weight: 249 lbs 08/29/2015 Blood Pressure 1: 120/80 Code: 8480-6 BMI: 26.9 Code: 06008-5 Height: 6'7" Weight: 239 lbs 05/11/2015 Blood Pressure 1: 132/80 Code: 8480-6 Blood Pressure 2: 122/80 Code: 8480-6 BMI: 27.0 Code: 63724-0 Heart Rate 1: 92 bpm Height: 6'7" SpO2: 98% Weight: 240 lbs Functional Status No Functional Status data History of Present Illness Symptom Name Status Resu lt Effective Date Notes Quality acute 12/29/2018 None Quality intermittent 12/29/2018 [...] Encounters Encounter Performer Loca tion Codes Date ([id number]) [id number] EST. P ATIENT, LEVEL III Diagnosis: Acute laryngopharyngitis[ICD10: J06.0] Diagnosis: Acute recurrent maxillary sinusitis[ICD10: J01.01] Diagnosis: Cough[ICD10: R05] Diagnosis: Generalized anxiety disorder[ICD10: F41.1] Sveta Crandall MD, [facility] CPT-4: 44988 12/29/2018 ([id number]) 36752 EST. P ATIENT, LEVEL III Diagnosis: Generalized anxiety disorder[ICD10: F41.1] Sveta Crandall MD, [facility] CPT-4: 53903 09/20/2018 ([id number]) [id number] EST. P ATIENT, LEVEL III Diagnosis: Generalized anxiety disorder[ICD10: F41.1] Sveta Crandall MD, [facility] CPT-4: 89085 06/09/2018 ([id number]) PREV VISIT E ST AGE 40-64 Diagnosis: Encounter for general adult medical examination without abnormal findings[ICD10: Z00.00] Sveta Crandall MD, [facility] CPT-4: 61984 05/03/2018 ([id number]) 63560 EST. P ATIENT, LEVEL III Diagnosis: Cellulitis of left toe[ICD10: L03.032] Diagnosis: Adjustment insomnia[ICD10: F51.02] Diagnosis: Dermatitis, unspecified[ICD10: L30.9] Alise Crandall MD, [facility] CPT-4: 29701 03/26/2017 ([id number]) 09912 EST. P ATIENT, LEVEL III Diagnosis: Cough[ICD10: R05] Alise Crandall MD, [facility] CPT-4: 89126 11/28/2016 06343 EST. PATIENT, LEVEL III Diagnosis: Acute laryngopharyngitis[ICD10: J06.0] Diagnosis: Acute bronchitis due to other specified organisms[ICD10: J20.8] Fay Crandall MD, [facility] CPT-4: 30609 11/18/2016 ([id number]) 46594 EST. P ATIENT, LEVEL III Diagnosis: Generalized anxiety disorder[ICD10: F41.1] Sveta Crandall MD, [facility] CPT-4: 35658 05/06/2016 ([id number]) 19577 EST. P ATIENT, LEVEL III Diagnosis: Generalized anxiety disorder[ICD10: F41.1] Sveta Crandall MD, C CPT-4: 39175 04/21/2016 ([id number]) 95216 EST. P ATIENT, LEVEL III Diagnosis: Generalized anxiety disorder[ICD10: F41.1] Sveta Crandall MD, C CPT-4: 76406 08/29/2015 ([id number]) PREV VISIT E ST AGE 40-64 Diagnosis: Well adult exam[ICD9: V70.0] Diagnosis: Anxiety[ICD9: 300.00] Alise Crandall MD, [facility] CPT-4: 07700 05/11/2015 Plan of Care Planned Activity Notes C odes Status Date Visit Plan: Sinusitis - Pt has acut e infection - pain in face, maxillary region, Pt informed to use decongestant, RX given to patient, sinus rinses also recommended. Call if symptoms do not show improvement. rx for sonia and bactrim Generalized anxiety/depression - rx for refill on lexapro sent to pharmacy 12/29/2018 Patient Education: Patient Medication Summary Completed 12/29/2018 Visit Plan: Chronic Anxiety - the p t has symptoms of chronic anxiety and depression that have been fairly well controlled since the last office visit. The pt has expected periods of exacerbation with abatement of the symptoms with change in situational exposure. No change in current medications. 09/20/2018 Appointment: Sveta Crandall WPtel: [address] [place] [address] (15 min) Moderate 09/20/2018 Patient Education: Patient Medication Summary Completed 09/20/2018 Visit Plan: Anxiety and Depression - the pt has symptoms have been fairly well controlled since the last office visit. The pt has expected periods of exacerbation with abatement of the symptoms with change in situa tional exposure. No change in current medications. 06/09/2018 Appointment: Sveta Crandall WPtel: [address] [place], [place] [address] (15 min) Moderate [...] on lexapro. 05/03/2018 Appointment: Sveta Crandall WPtel: [facility] (15 min) Moderate 05/03/2018 Patient Education: Patient [...] of plan. 03/26/2017 Appointment: Alise Collins WPtel: [phone] (15 min) Moderate 03/26/2017 Patient Education: [...] worsen. 11/18/2016 Appointment: Fay Dave WPtel: [phone] [facility] (30 min) Complex 11/18/2016 Patient Education: [...] medications. 08/29/2015 Appointment: Sveta Crandall WPtel: [phone] [facility] [place] (15 min) Moderate 08/29/2015 Patient Education: Patient Medication Summary Completed 08/29/2015 Appointment: Sveta Crandall WPtel: [phone] [facility] (15 min) Moderate 07/31/2015 Appointment: Sveta Crandall WPtel: [phone] [facility] (15 min) Moderate 07/05/2015 Visit Plan: [...] Completed 05/11/2015 Instructions Comment . Cough-recent [facility] hitis-symptoms improving-recommend patient take sonia daily-monitor symptoms [...] for pt to start on lexapro. . Sinusitis - Pt has acute infection [...]
--- OUTSIDE RECORDS SUMMARY | 2020-06-10 16:26 | XMS REPORT | CCD ---
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 Phone PP Unavailable CCM Unavailable Summary Purpose Interface Exchange Insurance Providers Payer name Policy type / Coverage type Covered green party ID Effective Begin Date Effective End Date Blue Cross Blue [facility] e Cross/Blue Shield [id number] Unknown Unk nown Family history Father Diagnosis Age At Onset Hypertension Unknown Mother Diagnosis Age At Onset alcohol dependence Unknown Skin cancer Unknown Cancer Unknown Depression Unknown Social History Social History Element Codes Description Effective Dates Marital status Unknown M daniela Coello 05/03/2018 Number of children Unknown 2 05/11/[address]: 005175001 Never smoker 05/11/2015 Alcohol history Unknown occasionally [...] Instruc tions Start Date Stop Date Sta s Fill Instructions propranolol 40 mg ta blet RxNorm: 413846 Tablet(s) TAKE 1 TABL ET BY MOUTH PRIOR TO EVENT NEEDED 09/20/2018 12/08/2018 Active Lexapro 10 mg tablet RxNorm: 935227 1 Tablet(s) PO QHS 08/30/2018 12/27/2018 Active Lexapro 10 mg tablet RxNorm: 564477 1 Tablet(s) PO QHS 05/03/2018 08/29/2018 Inactive cyclobenzaprine 5 mg tablet RxNorm: 169945 1 Tablet(s) PO TID as needed 01/05/2018 01/09/2018 In active cyclobenzaprine 5 mg tablet RxNorm: 551641 1 Tablet(s) PO TID as needed 01/05/2018 01/04/2018 In active propranolol 40 mg ta blet RxNorm: 201269 TAKE 1 TABLET BY MOUT H PRIOR TO EVENT NEEDED 07/24/2017 10/11/2017 Inactive Generic For:INDERAL 40 MG TABLET 2016 9:51:34 AM Prozac 10 mg capsule RxNorm: 726929 1 Capsule(s) PO daily may increase after a few weeks if needed 04/09/2017 04/08/2017 Inactive Pt to call if he wants dose increased Prozac 10 mg capsule RxNorm: 679968 1 Capsule(s) PO daily may increase after a few weeks if needed 04/09/2017 05/02/2018 Inactive Pt to call if he wants dose increased Ambien 10 mg tablet RxNorm: 590934 1 Tablet(s) PO HS PRN 03/26/2017 05/02/2018 Inactive betamethasone johnny te 0.1 % topical cream RxNorm: 361101 1 Application TOP BID 03/26/2017 04/08/2017 In active Keflex 500 mg capsule RxNorm: 524737 1 Capsule(s) PO TID 03/26/2017 04/01/2017 Inactive Klonopin 0.5 mg tablet RxNorm: 471805 Tablet(s) TAKE 1 TABLET BY MOUTH EVERY 8 HOURS NEEDED 01/28/2017 02/26/2017 Inactive prednisone 10 mg tablet RxNorm: 205105 Tablet(s) PO UD 11/18/2016 05/02/2018 Inactive 6,5,4,3,2,1 Zithromax Z-Kevin 250 mg tablet RxNorm: 942804 1 Tablet(s) PO UD 11/18/2016 01/27/2017 Inactive 1 zpack Klonopin 0.5 mg tablet RxNorm: 590280 Tablet(s) TAKE 1 TABLET BY MOUTH EVERY 8 HOURS NEEDED 07/09/2016 08/05/2016 Inactive Generic For:KLONOPIN 0.5 MG TABLET N O T I C E PRESCRIPTION PREVIOUSLY AUTHORIZED BY DOCTOR:JULES DELANEY [phone] mirtazapine 7.5 mg t ablet RxNorm: 750529 1 Tablet(s) PO QHS 07/04/2016 04/08/2017 Inactive Belsomra 10 mg tablet RxNorm: 3110523 1 Tablet(s) PO QHS 05/30/2016 05/29/2016 Inactive Belsomra 10 mg tablet RxNorm: 9770305 1 Tablet(s) PO QHS as needed 05/30/2016 03/25/2017 In active propranolol 40 mg ta blet RxNorm: 403999 Tablet(s) 1 - 1.5 Tab let(s) PO prior to event as needed 05/06/2016 07/23/2017 Inactive mirtazapine 15 mg ta blet RxNorm: 737628 1 Tablet(s) PO QHS 04/30/2016 05/29/2016 Inactive amitriptyline 25 mg tablet RxNorm: 573372 1 Tablet(s) PO QPM 04/21/2016 04/29/2016 Inactive propranolol 40 mg ta blet RxNorm: 438655 1 Tablet(s) PO prior to event as needed 04/10/2016 05/05/2016 In active Klonopin 0.5 mg tablet RxNorm: 603262 Tablet(s) TAKE 1 TABLET BY MOUTH EVERY 8 HOURS NEEDED 02/29/2016 03/18/2016 Inactive Generic For:KLONOPIN 0.5 MG TABLET N O T I C E PRESCRIPTION PREVIOUSLY AUTHORIZED BY DOCTOR:JULES DELANEY [phone] Augustine-D 24 Hour 18 0 mg-240 mg tablet,extended release RxNorm: 659115 1 Tablet(s) PO daily 01/21/2016 02/29/2016 Inactive Augustine-D 24 Hour 18 0 mg-240 mg tablet,extended release RxNorm: 908049 1 Tablet(s) PO daily 01/21/2016 01/20/2016 Inactive propranolol 40 mg ta blet RxNorm: 389655 1 Tablet(s) PO prior to event as needed 11/20/2015 04/09/2016 In active Zithromax Z-Kevin 250 mg tablet RxNorm: 304420 1 Tablet(s) PO UD 10/19/2015 05/05/2016 Inactive 1 zpack Klonopin 0.5 mg tablet RxNorm: 476462 Tablet(s) TAKE 1 TABLET BY MOUTH EVERY 8 HOURS NEEDED 07/17/2015 08/04/2015 Inactive Generic For:KLONOPIN 0.5 MG TABLET N O T I C E PRESCRIPTION PREVIOUSLY AUTHORIZED BY DOCTOR:JULES DELANEY [phone] Klonopin 0.5 mg tablet RxNorm: 401364 Tablet(s) TAKE 1 TABLET BY MOUTH EVERY 8 HOURS NEEDED 07/17/2015 07/16/2015 Inactive Generic For:KLONOPIN 0.5 MG TABLET N O T I C E PRESCRIPTION PREVIOUSLY AUTHORIZED BY DOCTOR:JULES DELANEY [phone] Klonopin 0.5 mg tablet RxNorm: 031248 TAKE 1 TABLET BY MOUTH EVERY 8 HOURS NEEDED 07/16/2015 07/16/2015 Inactive Generic For:KLONOPIN 0.5 MG TABLET N O T I C E PRESCRIPTION PREVIOUSLY AUTHORIZED BY DOCTOR:JULES DELANEY Lexapro 10 mg tablet RxNorm: 214109 1 Tablet(s) PO daily 05/11/2015 08/28/2015 Inactive propranolol 40 mg ta blet RxNorm: 827150 1 Tablet(s) PO prior to john n No Start Date 11/19/2015 Inactive Zithromax Z-Kevin 250 mg tablet RxNorm: 001157 1 Tablet(s) PO UD No Start Date 10/18/2015 Inactive 1 zpack Klonopin 0.5 mg tablet RxNorm: 045551 Tablet(s) PO as needed No Start Date [...] laryngopharyngitis ICD-10: J06 .0 ICD-9: 465.0 11/18/2016 Anxiety ICD-9: 300.00 Well adult exam [...] Gastrointestinal No abdominal pain 06/09/2018 Psychiatric anxiety 080 06/2018 Psychiatric No depression 06/09/2018 Constitutional No [...] 1: 132/80 Code: 8480-6 BMI: 29.5 Code: 48014-8 Heart Rate 1: 96 bpm Height: 6'7" SpO2: 98% Weight: 262 lbs 06/09/2018 Blood Pressure 1: 142/84 Code: 8480-6 BMI: 29.7 Code: 09992-8 Heart Rate 1: 89 bpm Height: 6'7" SpO2: 96% Weight: 264 lbs 05/03/2018 Blood Pressure 1: 150/78 Code: 8480-6 BMI: 28.8 Code: 76309-7 Heart Rate 1: 96 bpm Height: 6'7" SpO2: 97% Weight: 256 lbs 03/26/2017 Blood Pressure 1: 146/84 Code: 8480-6 BMI: 29.1 Code: 91666-3 Heart Rate 1: 87 bpm Height: 6'7" SpO2: 97% Weight: 258 lbs 11/28/2016 Blood Pressure 1: 136/68 Code: 8480-6 BMI: 28.8 Code: 15571-9 Heart Rate 1: 76 bpm Height: 6'7" SpO2: 97% Weight: 256 lbs 11/18/2016 Blood Pressure 1: 132/76 Code: 8480-6 BMI: 28.8 Code: 19074-1 Heart Rate 1: 97 bpm Height: 6'7" SpO2: 98% Temperature: 37.3 (C ) / 99.2 (F) Weight: 256 lbs 05/06/2016 Blood Pressure 1: 140/92 Code: 8480-6 BMI: 27.7 Code: 26305-3 Heart Rate 1: 103 bpm Height: 6'7" SpO2: 98% Weight: 246 lbs 04/21/2016 Blood Pressure 1: 152/80 Code: 8480-6 BMI: 28.1 Code: 46649-6 Heart Rate 1: 97 bpm Height: 6'7" SpO2: 98% Weight: 249 lbs 08/29/2015 Blood Pressure 1: 120/80 Code: 8480-6 BMI: 26.9 Code: 78240-0 Height: 6'7" Weight: 239 lbs 05/11/2015 Blood Pressure 1: 132/80 Code: 8480-6 Blood Pressure 2: 122/80 Code: 8480-6 BMI: 27.0 Code: 82121-1 Heart Rate 1: 92 bpm Height: 6'7" [...] Encounters Encounter Performer Loca tion Codes Date ([id number]) 81489 EST. P ATIENT, LEVEL III Diagnosis: Generalized anxiety disorder[ICD10: F41.1] Sveta Crandall MD, C CPT-4: 70484 09/20/2018 ([id number]) 78495 EST. P ATIENT, LEVEL III Diagnosis: Generalized anxiety disorder[ICD10: F41.1] Sveta Crandall MD, C CPT-4: 43524 06/09/2018 ([id number]) PREV VISIT E ST AGE 40-64 Diagnosis: Encounter for general adult medical examination without abnormal findings[ICD10: Z00.00] Sveta Crandall MD, [facility] CPT-4: 55227 05/03/2018 ([id number]) 43748 EST. P ATIENT, LEVEL III Diagnosis: Cellulitis of left toe[ICD10: L03.032] Diagnosis: Adjustment insomnia[ICD10: F51.02] Diagnosis: Dermatitis, unspecified[ICD10: L30.9] Alise Crandall MD, [facility] CPT-4: 14708 03/26/2017 ([id number]) 91347 EST. P ATIENT, LEVEL III Diagnosis: Cough[ICD10: R05] Alise Crandall MD, [facility] CPT-4: 54531 11/28/2016 [id number] EST. PATIENT, LEVEL III Diagnosis: Acute laryngopharyngitis[ICD10: J06.0] Diagnosis: Acute bronchitis due to other specified organisms[ICD10: J20.8] Fay Crandall MD, [facility] CPT-4: 83517 11/18/2016 ([id number]) 29119 EST. P ATIENT, LEVEL III Diagnosis: Generalized anxiety disorder[ICD10: F41.1] Sveta Crandall MD, C CPT-4: 56094 05/06/2016 ([id number]) 01564 EST. P ATIENT, LEVEL III Diagnosis: Generalized anxiety disorder[ICD10: F41.1] Sveta Crandall MD, C CPT-4: 35512 04/21/2016 ([id number]) 02237 EST. P ATIENT, LEVEL III Diagnosis: Generalized anxiety disorder[ICD10: F41.1] Sveta Crandall MD, C CPT-4: 80500 08/29/2015 ([id number]) PREV VISIT E ST AGE 40-64 Diagnosis: Well adult exam[ICD9: V70.0] Diagnosis: Anxiety[ICD9: 300.00] Alise Crandall MD, [facility] CPT-4: 51137 05/11/2015 Plan of Care Planned Activity Notes C odes Status Date Visit Plan: Chronic Anxiety - the p t has symptoms of chronic anxiety and depression that have been fairly well controlled since the last office visit. The pt has expected periods of exacerbation with abatement of the symptoms with change in situational exposure. No change in current medications. 09/20/2018 Patient Education: Patient Medication Summary Completed 09/20/2018 Visit Plan: Anxiety and Depression - the pt has symptoms have been fairly well controlled since the last office visit. The pt has expected periods of exacerbation with abatement of the symptoms with change in situa tional exposure. No change in current medications. 06/09/2018 Appointment: Sveta Crandall WPtel: [address] [place], [place] [id number] (15 min) Moderate 06/09/2018 Patient Education: Patient [...] lexapro. 05/03/2018 App[facility]ment[facility] [phone] [facility] ([facility] min) Moderate 05/03/2018 Patient [...] of plan. 03/26/2017 [facility]ment[facility] [address] [facility] (15 min) Moderate 03/26/2017 Patient Education: Patient [...] worsen. 11/18/2016 Appointment: Fay Dave WPtel: [phone] [facility] (30 min) Complex 11/18/2016 Patient Education: [...] medications. 08/29/2015 Appointment: Sveta Crandall WPtel: [phone] [facility] (15 min) Moderate 08/29/2015 Patient Education: Patient Medication Summary Completed 08/29/2015 Appointment: Sveta Crandall WPtel: [phone] [facility] (15 min) Moderate 07/31/2015 Appointment: Sveta Crandall WPtel: [facility] (15 min) Moderate 07/05/2015 Visit [...]
--- OUTSIDE RECORDS SUMMARY | 2020-06-10 16:26 | XMS REPORT | CCD ---
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 Role Phone PP Unavailable CCM Unavailable Summary Purpose Interface Exchange Insurance Providers Payer name Policy type / Coverage type Covered libertarian ID Effective Begin Date Effective End Date Blue Cross Blue [facility] e Cross/Blue Shield [id number] Unknown Unk nown Family history Father Diagnosis Age At Onset Hypertension Unknown Mother Diagnosis Age At Onset alcohol dependence Unknown Skin cancer Unknown Cancer Unknown Depression Unknown Social History Social History Element Codes Description Effective Dates Marital status Unknown M daniela Coello 05/03/2018 Number of children Unknown 2 05/11/[address]: 984720178 Never smoker 05/11/2015 Alcohol history Unknown occasionally [...] Fill Instructions Lexapro 10 mg tablet RxNorm: 485575 1.5 Tablet(s) PO QHS 11/23/2018 03/22/2019 Active propranolol 40 mg ta blet RxNorm: 126552 Tablet(s) TAKE 1 TABL ET BY MOUTH PRIOR TO EVENT NEEDED 09/20/2018 12/08/2018 Active Lexapro 10 mg tablet RxNorm: 379059 1 Tablet(s) PO QHS 08/30/2018 11/22/2018 Inactive Lexapro 10 mg tablet RxNorm: 339190 1 Tablet(s) PO QHS 05/03/2018 08/29/2018 Inactive cyclobenzaprine 5 mg tablet RxNorm: 067201 1 Tablet(s) PO TID as needed 01/05/2018 01/09/2018 In active cyclobenzaprine 5 mg tablet RxNorm: 567469 1 Tablet(s) PO TID as needed 01/05/2018 01/04/2018 In active propranolol 40 mg ta blet RxNorm: 376663 TAKE 1 TABLET BY MOUT H PRIOR TO EVENT NEEDED 07/24/2017 10/11/2017 Inactive Generic For:INDERAL 40 MG TABLET 2016 9:51:34 AM Prozac 10 mg capsule RxNorm: 881408 1 Capsule(s) PO daily may increase after a few weeks if needed 04/09/2017 04/08/2017 Inactive Pt to call if he wants dose increased Prozac 10 mg capsule RxNorm: 092901 1 Capsule(s) PO daily may increase after a few weeks if needed 04/09/2017 05/02/2018 Inactive Pt to call if he wants dose increased Ambien 10 mg tablet RxNorm: 099430 1 Tablet(s) PO HS PRN 03/26/2017 05/02/2018 Inactive betamethasone johnny te 0.1 % topical cream RxNorm: 915640 1 Application TOP BID 03/26/2017 04/08/2017 In active Keflex 500 mg capsule RxNorm: 352292 1 Capsule(s) PO TID 03/26/2017 04/01/2017 Inactive Klonopin 0.5 mg tablet RxNorm: 502760 Tablet(s) TAKE 1 TABLET BY MOUTH EVERY 8 HOURS NEEDED 01/28/2017 02/26/2017 Inactive prednisone 10 mg tablet RxNorm: 521443 Tablet(s) PO UD 11/18/2016 05/02/2018 Inactive 6,5,4,3,2,1 Zithromax Z-Kevin 250 mg tablet RxNorm: 657859 1 Tablet(s) PO UD 11/18/2016 01/27/2017 Inactive 1 zpack Klonopin 0.5 mg tablet RxNorm: 288590 Tablet(s) TAKE 1 TABLET BY MOUTH EVERY 8 HOURS NEEDED 07/09/2016 08/05/2016 Inactive Generic For:KLONOPIN 0.5 MG TABLET N O T I C E PRESCRIPTION PREVIOUSLY AUTHORIZED BY DOCTOR:JULES DELANEY mirtazapine 7.5 mg t ablet RxNorm: 181660 1 Tablet(s) PO QHS 07/04/2016 04/08/2017 Inactive Belsomra 10 mg tablet RxNorm: 2957994 1 Tablet(s) PO QHS 05/30/2016 05/29/2016 Inactive Belsomra 10 mg tablet RxNorm: 5767132 1 Tablet(s) PO QHS as needed 05/30/2016 03/25/2017 In active propranolol 40 mg ta blet RxNorm: 258008 Tablet(s) 1 - 1.5 Tab let(s) PO prior to event as needed 05/06/2016 07/23/2017 Inactive mirtazapine 15 mg ta blet RxNorm: 237470 1 Tablet(s) PO QHS 04/30/2016 05/29/2016 Inactive amitriptyline 25 mg tablet RxNorm: 915715 1 Tablet(s) PO QPM 04/21/2016 04/29/2016 Inactive propranolol 40 mg ta blet RxNorm: 545894 1 Tablet(s) PO prior to event as needed 04/10/2016 05/05/2016 In active Klonopin 0.5 mg tablet RxNorm: 786473 Tablet(s) TAKE 1 TABLET BY MOUTH EVERY 8 HOURS NEEDED 02/29/2016 03/18/2016 Inactive Generic For:KLONOPIN 0.5 MG TABLET N O T I C E PRESCRIPTION PREVIOUSLY AUTHORIZED BY DOCTOR:JULES DELANEY Augustine-D 24 Hour 18 0 mg-240 mg tablet,extended release RxNorm: 881330 1 Tablet(s) PO daily 01/21/2016 02/29/2016 Inactive Augustine-D 24 Hour 18 0 mg-240 mg tablet,extended release RxNorm: 414179 1 Tablet(s) PO daily 01/21/2016 01/20/2016 Inactive propranolol 40 mg ta blet RxNorm: 942100 1 Tablet(s) PO prior to event as needed 11/20/2015 04/09/2016 In active Zithromax Z-Kevin 250 mg tablet RxNorm: 924830 1 Tablet(s) PO UD 10/19/2015 05/05/2016 Inactive 1 zpack Klonopin 0.5 mg tablet RxNorm: 633271 Tablet(s) TAKE 1 TABLET BY MOUTH EVERY 8 HOURS NEEDED 07/17/2015 08/04/2015 Inactive Generic For:KLONOPIN 0.5 MG TABLET N O T I C E PRESCRIPTION PREVIOUSLY AUTHORIZED BY DOCTOR:JULES DELANEY Klonopin 0.5 mg tablet RxNorm: 557293 Tablet(s) TAKE 1 TABLET BY MOUTH EVERY 8 HOURS NEEDED 07/17/2015 07/16/2015 Inactive Generic For:KLONOPIN 0.5 MG TABLET N O T I C E PRESCRIPTION PREVIOUSLY AUTHORIZED BY DOCTOR:JULES DELANEY Klonopin 0.5 mg tablet RxNorm: 940047 TAKE 1 TABLET BY MOUTH EVERY 8 HOURS NEEDED 07/16/2015 07/16/2015 Inactive Generic For:KLONOPIN 0.5 MG TABLET N O T I C E PRESCRIPTION PREVIOUSLY AUTHORIZED BY DOCTOR:JULES DELANEY Lexapro 10 mg tablet RxNorm: 699109 1 Tablet(s) PO daily 05/11/2015 08/28/2015 Inactive propranolol 40 mg ta blet RxNorm: 101418 1 Tablet(s) PO prior to john n No Start Date 11/19/2015 Inactive Zithromax Z-Kevin 250 mg tablet RxNorm: 553522 1 Tablet(s) PO UD No Start Date 10/18/2015 Inactive 1 zpack Klonopin 0.5 mg tablet RxNorm: 485837 Tablet(s) PO as needed No Start Date [...] laryngopharyngitis ICD-10: J06 .0 ICD-9: 465.0 11/18/2016 Well adult exam ICD-9: V70.0 05/11/2015 [...] Gastrointestinal No abdominal pain 06/09/2018 Psychiatric anxiety 0806/2018 Psychiatric No depression 06/09/2018 Constitutional No recent [...] 1: 132/80 Code: 8480-6 BMI: 29.5 Code: 50449-1 Heart Rate 1: 96 bpm Height: 6'7" SpO2: 98% Weight: 262 lbs 06/09/2018 Blood Pressure 1: 142/84 Code: 8480-6 BMI: 29.7 Code: 27101-1 Heart Rate 1: 89 bpm Height: 6'7" SpO2: 96% Weight: 264 lbs 05/03/2018 Blood Pressure 1: 150/78 Code: 8480-6 BMI: 28.8 Code: 38390-3 Heart Rate 1: 96 bpm Height: 6'7" SpO2: 97% Weight: 256 lbs 03/26/2017 Blood Pressure 1: 146/84 Code: 8480-6 BMI: 29.1 Code: 92061-3 Heart Rate 1: 87 bpm Height: 6'7" SpO2: 97% Weight: 258 lbs 11/28/2016 Blood Pressure 1: 136/68 Code: 8480-6 BMI: 28.8 Code: 77865-4 Heart Rate 1: 76 bpm Height: 6'7" SpO2: 97% Weight: 256 lbs 11/18/2016 Blood Pressure 1: 132/76 Code: 8480-6 BMI: 28.8 Code: 40025-8 Heart Rate 1: 97 bpm Height: 6'7" SpO2: 98% Temperature: 37.3 (C ) / 99.2 (F) Weight: 256 lbs 05/06/2016 Blood Pressure 1: 140/92 Code: 8480-6 BMI: 27.7 Code: 90528-0 Heart Rate 1: 103 bpm Height: 6'7" SpO2: 98% Weight: 246 lbs 04/21/2016 Blood Pressure 1: 152/80 Code: 8480-6 BMI: 28.1 Code: 01751-4 Heart Rate 1: 97 bpm Height: 6'7" SpO2: 98% Weight: 249 lbs 08/29/2015 Blood Pressure 1: 120/80 Code: 8480-6 BMI: 26.9 Code: 65411-9 Height: 6'7" Weight: 239 lbs 05/11/2015 Blood Pressure 1: 132/80 Code: 8480-6 Blood Pressure 2: 122/80 Code: 8480-6 BMI: 27.0 Code: 41528-4 Heart Rate 1: 92 bpm Height: 6'7" [...] Encounters Encounter Performer Loca tion Codes Date ([id number]) 80327 EST. P ATIENT, LEVEL III Diagnosis: Generalized anxiety disorder[ICD10: F41.1] Sveta Crandall MD, [facility] CPT-4: 51184 09/20/2018 ([id number]) 68677 EST. [facility] Diagnosis: Generalized anxiety disorder[ICD10: F41.1] Sveta Crandall MD, [facility] CPT-4: 88630 06/09/2018 ([id number]) PREV VISIT E ST AGE 40-64 Diagnosis: Encounter for general adult medical examination without abnormal findings[ICD10: Z00.00] Sveta Crandall MD, [facility] CPT-4: 15915 05/03/2018 ([id number]) 53987 EST. P ATIENT, LEVEL III Diagnosis: Cellulitis of left toe[ICD10: L03.032] Diagnosis: Adjustment insomnia[ICD10: F51.02] Diagnosis: Dermatitis, unspecified[ICD10: L30.9] Alise Crandall MD, [facility] CPT-4: 27480 03/26/2017 ([id number]) 96771 EST. P ATIENT, LEVEL III Diagnosis: Cough[ICD10: R05] Alise Crandall MD, [facility] CPT-4: 17764 11/28/2016 [id number] EST. PATIENT, LEVEL III Diagnosis: Acute laryngopharyngitis[ICD10: J06.0] Diagnosis: Acute bronchitis due to other specified organisms[ICD10: J20.8] Fay Crandall MD, [facility] CPT-4: 26166 11/18/2016 ([id number]) 27728 EST. P ATIENT, LEVEL III Diagnosis: Generalized anxiety disorder[ICD10: F41.1] Sveta Crandall MD, [facility] CPT-4: 10968 05/06/2016 ([id number]) 37133 EST. P ATIENT, LEVEL III Diagnosis: Generalized anxiety disorder[ICD10: F41.1] Sveta Crandall MD, [facility] CPT-4: 75496 04/21/2016 ([id number]) 81836 EST. P ATIENT, LEVEL III Diagnosis: Generalized anxiety disorder[ICD10: F41.1] Sveta Crandall MD, [facility] CPT-4: 03469 08/29/2015 ([id number]) PREV VISIT E ST AGE 40-64 Diagnosis: Well adult exam[ICD9: V70.0] Diagnosis: Anxiety[ICD9: 300.00] Alise Crandall MD, [facility] CPT-4: 60211 05/11/2015 Plan of Care Planned Activity Notes [...] current medications. 09/20/2018 Appointment: Sveta Crandall WPtel: [address] [place], [place] [address] (15 min) Moderate 09/20/2018 Patient Education: Patient Medication Summary Completed 09/20/2018 Visit Plan: Anxiety and Depression - the pt has symptoms have been fairly well controlled since the last office visit. The pt has expected periods of exacerbation with abatement of the symptoms with change in situa tional exposure. No change in current medications. 06/09/2018 Appointment: Sveta Crandall WPtel: [phone] [facility] [place] (15 min) Moderate 06/09/2018 Patient Education: [...] on lexapro. 05/03/2018 Appointment: Sveta Crandall WPtel: [phone] [facility] (15 min) Moderate 05/03/2018 Patient Education: [...] of plan. 03/26/2017 Appointment: Alise Collins WPtel: [address] [facility] [place] (15 min) Moderate 03/26/2017 Patient Education: [...] acutely worsen. 11/18/2016 Appointment: Fay Dave WPtel: [facility] (30 min) Complex 11/18/2016 Patient Education: Patient [...] medications. 08/29/2015 Appointment: Sveta Crandall WPtel: [phone] [facility] (15 min) Moderate 08/29/2015 Patient Education: Patient Medication Summary Completed 08/29/2015 Appointment: Sveta Crandall WPtel: [phone] [facility] (15 min) Moderate 07/31/2015 Appointment: Sveta Crandall WPtel: [address] [facility] (15 min) Moderate 07/05/2015 Visit Plan: Well [...] Summary Completed 05/11/2015 Instructions Comment . Cough-recent [facility] hitis-symptoms improving-recommend patient take augustine daily-monitor symptoms [...]
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
[2020-06-10] MEDS ORDERED: DOXY100T2 (16:48)
[2020-06-10] MEDS ORDERED: ESCI10TA55 (16:48)
[2020-06-10] MEDS ORDERED: HYDR-700 (16:48)
[2020-06-10] MEDS ORDERED: ALLO100T (16:48)
[2020-06-10 16:50] LABS: BASOPHILS % (AUTO) 0 % (0-10); EOSINOPHILS # (AUTO) 0.3 10^3/uL (0.0-0.3); EOSINOPHILS % (AUTO) 6 % (0-10); HEMATOCRIT 42 % (40-54); HEMOGLOBIN 14.1 G/DL (13.3-17.7); LYMPHOCYTES # (AUTO) 0.5 X 10^3 (1.0-4.0); LYMPHOCYTES % (AUTO) 8 % (12-44); MEAN CORPUSCULAR HEMOGLOBIN 32 PG (25-34); MEAN CORPUSCULAR HGB CONC 34 G/DL (32-36); MEAN CORPUSCULAR VOLUME 96 FL (80-99); MEAN PLATELET VOLUME 10.8 FL (7.4-10.4); MONOCYTES # (AUTO) 0.3 X 10^3 (0.0-1.0); MONOCYTES % (AUTO) 5 % (0-12); NEUTROPHILS # (AUTO) 4.5 X 10^3 (1.8-7.8); NEUTROPHILS % (AUTO) 80 % (42-75); PLATELET COUNT 152 10^3/uL (130-400); RED CELL DISTRIBUTION WIDTH 13.6 % (10.0-14.5); WHITE BLOOD COUNT 5.6 10^3/uL (4.3-11.0)
[2020-06-10 17:04] LABS: ALBUMIN 3.5 GM/DL (3.2-4.5); CHLORIDE 103 MMOL/L (98-107); SODIUM 137 MMOL/L (135-145)
[2020-06-10 17:06] LABS: CALCIUM 8.7 MG/DL (8.5-10.1)
[2020-06-10 17:07] LABS: GLUCOSE 124 MG/DL (70-105); TOTAL PROTEIN 6.6 GM/DL (6.4-8.2)
[2020-06-10 17:08] LABS: CARBON DIOXIDE 23 MMOL/L (21-32)
[2020-06-10 17:09] LABS: BILIRUBIN,TOTAL 0.5 MG/DL (0.1-1.0)
[2020-06-10 17:10] LABS: ALKALINE PHOSPHATASE 91 U/L (40-136)
[2020-06-10 17:11] LABS: CREATININE SERUM 0.97 MG/DL (0.60-1.30); GFR ESTIMATED > 60
[2020-06-10 17:12] LABS: BUN/CREATININE RATIO 12
[2020-06-10 17:13] LABS: ALANINE AMINOTRANSFERASE 49 U/L (0-55)
[2020-06-10 17:19] LABS: ERYTHROCYTE SEDIMENTATION RATE 43 MM/HR (0-30)
[2020-06-10] MEDS ORDERED: predniSONE 10 MG TAB ONE (17:42)
[2020-06-10] MEDS ORDERED: PRD20T PO (17:59)
[2020-06-10] MEDS ORDERED: predniSONE 20 MG TAB PO ONE (18:00)
--- NOTE | 2020-06-10 18:00 | ED General ---
General Chief Complaint: Fever-Adult/Adol Stated Complaint: FEVER Nursing Triage Note: PT TO ROOM 3 PT CO OF FEVER, RASH ALL OVER BODY INCLUDING TONGUE. MALAISE, DENIES PAIN AND ITCHING STARTED ON THURSDAY. PT HAS BEEN SEEN IN ED AND BY PERSONAL PHYSCIAN. PT HAS PENDING COVID TEST, TICK PANEL. Nursing Sepsis Screen: Possible Sepsis Risk Source of Information: Patient Exam Limitations: No Limitations History of Present Illness Date Seen by Provider: Jun 10, 2020 Time Seen by Provider: 16:20 Initial Comments Mr. Grissom presents to the emergency room with complaints of malaise, intermittent fever, and rapidly spreading diffuse rash that has intensified over the past 6 days. He has been screened for COVID 19 twice, the first test was negative and the second is pending. Labs previously showed no major abnormalities. Workup is being pursued by Dr. Crandall and Dr. Saucedo. On her prior ER visit he was found to have an elevated d-dimer. CT angiogram was obtained which showed no cardiopulmonary abnormalities. However, lesions were noted on the liver. This prompted liver biopsy with pending pathology. He has also had a skin biopsy performed by Dr. Crandall with pending pathology. He has a pending tick panel as well. I've spoken with Dr. Umana and Dr. Saab who have also been involved in his care. 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 There his been some discussion a bout starting high-dose steroids. Patient now has sores on his tongue that are painful when he eats or drinks. He has some minimal involvement of the lower lip. He was started on doxycycline was suspicion he may have a tickborne disease. Allergies and Home Medications Allergies Coded Allergies: No Known Drug Allergies (Unverified , 04/10/15) Home Medications Prednisone 20 Mg Tab, 60 MG PO DAILY Prescribed by: JOSE ALFREDO GREEN on 06/10/20 1534 Patient Home Medication List Home Medication List Reviewed: Yes Review of Systems Review of Systems Constitutional: see HPI EENTM: see HPI Respiratory: no symptoms reported Cardiovascular: no symptoms reported Gastrointestinal: no symptoms reported Genitourinary: no symptoms reported Musculoskeletal: no symptoms reported Skin: see HPI Psychiatric/Neurological: No Symptoms Reported Hematologic/Lymphatic: No Symptoms Reported Immunological/Allergic: no symptoms reported Past Srfpdgl-Prantm-Purcow Hx Past Med/Social Hx: Reviewed Nursing Past Med/Soc Hx Patient Social History Alcohol Use: Rarely Uses Number of Drinks Today: AA Alcohol Beverage of Choice: Beer Recreational Drug Use: No Smoking Status: Never a Smoker 2nd Hand Smoke Exposure: No Contact w/Someone Who Travel: No Recent Infectious Disease Expo: No Recent Hopitalizations: No Physical Abuse: No Sexual Abuse: No Immunizations Up To Date Tetanus Booster (TDap): Unknown Seasonal Allergies Seasonal Allergies: No Past Medical History Surgeries: Yes (birthmark removed) Respiratory: No Currently Using CPAP: No Currently Using BIPAP: No Cardiac: No Neurological: No Reproductive Disorders: No Sexually Transmitted Disease: No Genitourinary: No Gastrointestinal: No Musculoskeletal: No (possible gout) Endocrine: No HEENT: No Loss of Vision: Denies Hearing Impairment: Denies Cancer: No Psychosocial: No Integumentary: No Blood Disorders: No Physical Exam Vital Signs Vital Signs - First Documented 06/10/20 16:10 Temp 37.1 Pulse 115 Resp 16 B/P (MAP) 162/105 (124) Pulse Ox 98 Capillary Refill : Less Than 3 Seconds Height, Weight, BMI Height: 6'7.00" Weight: 280lbs. 0.0oz. 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 Rash is nonblanching and is in places per pruritic and/or petechial in appearance) Focused Exam Lactate Level 06/10/20 16:35: Lactic Acid Level 1.78 Lactic Acid Level Laboratory Tests Test 06/10/20 16:35 Lactic Acid Level 1.78 MMOL/L (0.50-2.00) Progress/Results/Core Measures Suspected Sepsis Recent Fever Within 48 Hours: Yes Infection Criteria Present: Suspected New Infection New/Unexplained Altered Menta: No Sepsis Screen: Possible Sepsis Risk SIRS Temperature: Pulse: 115 Respiratory Rate: 16 Laboratory Tests 06/10/20 16:35: White Blood Count 5.6 Blood Pressure 162 /105 Mean: 124 06/10/20 16:35: Lactic Acid Level 1.78 Laboratory Tests 06/10/20 16:35: Creatinine 0.97, INR Comment 1.0, Platelet Count 152, Total Bilirubin 0.5 Results/Orders Lab Results Laboratory Tests Test 06/10/20 16:35 Range/Units White Blood Count 5.6 4.3-11.0 10^3/uL Red Blood Count 4.37 4.35-5.85 10^6/uL Hemoglobin 14.1 13.3-17.7 G/DL Hematocrit 42 40-54 % Mean Corpuscular Volume 96 80-99 FL Mean Corpuscular Hemoglobin 32 25-34 PG Mean Corpuscular Hemoglobin Concent 34 32-36 G/DL Red Cell Distribution Width 13.6 10.0-14.5 % Platelet Count 152 130-400 10^3/uL Mean Platelet Volume 10.8 H 7.4-10.4 FL Neutrophils (%) (Auto) 80 H 42-75 % Lymphocytes (%) (Auto) 8 L 12-44 % Monocytes (%) (Auto) 5 0-12 % Eosinophils (%) (Auto) 6 0-10 % Basophils (%) (Auto) 0 0-10 % Neutrophils # (Auto) 4.5 1.8-7.8 X 10^3 Lymphocytes # (Auto) 0.5 L 1.0-4.0 X 10^3 Monocytes # (Auto) 0.3 0.0-1.0 X 10^3 Eosinophils # (Auto) 0.3 0.0-0.3 10^3/uL Basophils # (Auto) 0.0 0.0-0.1 10^3/uL Erythrocyte Sedimentation Rate 43 H 0-30 MM/HR Prothrombin Time 14.0 12.2-14.7 SEC INR Comment 1.0 0.8-1.4 Activated Partial Thromboplast Time 30 24-35 SEC Sodium Level 137 135-145 MMOL/L Potassium Level 4.0 3.6-5.0 MMOL/L Chloride Level 103 98-107 MMOL/L Carbon Dioxide Level 23 21-32 MMOL/L Anion Gap 11 5-14 MMOL/L Blood Urea Nitrogen 12 7-18 MG/DL Creatinine 0.97 0.60-1.30 MG/DL Estimat Glomerular Filtration Rate > 60 BUN/Creatinine Ratio 12 Glucose Level 124 H 70-105 MG/DL Lactic Acid Level 1.78 0.50-2.00 MMOL/L Calcium Level 8.7 8.5-10.1 MG/DL Corrected Calcium 9.1 8.5-10.1 MG/DL Total Bilirubin 0.5 0.1-1.0 MG/DL Aspartate Amino Transf (AST/SGOT) 23 5-34 U/L Alanine Aminotransferase (ALT/SGPT) 49 0-55 U/L Alkaline Phosphatase 91 40-136 U/L Lactate Dehydrogenase 311 H 125-220 U/L C-Reactive Protein High Sensitivity 14.87 H 0.00-0.50 MG/DL Total Protein 6.6 6.4-8.2 GM/DL Albumin 3.5 3.2-4.5 GM/DL My Orders Orders - JOSE ALFREDO JACKSON MD Cbc With Automated Diff (06/10/20 16:31) Comprehensive Metabolic Panel (06/10/20 16:31) Hs C Reactive Protein (06/10/20 16:31) Protime With Inr (06/10/20 16:31) Partial Thromboplastin Time (06/10/20 16:31) Erythrocyte Sedimentation Rate (06/10/20 16:31) Ed Iv/Invasive Line Start (06/10/20 16:31) Lactic Acid Analyzer (06/10/20 16:34) LDH (06/10/20 16:34) Prednisone Tablet (Deltasone Tablet) (06/10/20 17:42) Prednisone Tablet (Deltasone Tablet) (06/10/20 18:00) Medications Given in ED Current Medications Medications Dose Ordered Sig/Cliff Route Start Time Stop Time Status Last Admin Dose Admin Prednisone 10 mg STK-MED ONCE .ROUTE 06/10/20 17:42 06/10/20 17:46 DC 06/10/20 17:49 60 MG Vital Signs/I&O 06/10/20 06/10/20 16:10 18:01 Temp 37.1 37.1 Pulse 115 105 Resp 16 18 B/P (MAP) 162/105 (124) 124/90 (124) Pulse Ox 98 98 Capillary Refill : Less Than 3 Seconds Blood Pressure Mean: 124 Progress Note : Progress Note Labs were similar on evaluation with the exception of increased CRP. Differential still includes several diagnoses. Some diagnoses considered include Florez-Zohaib syndrome, neoplastic associated syndrome, erythema nodosum, COVID-19 rash, or cutaneous manifestations of T-cell lymphoma. 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 Patient has also been taking Lexapro for about a year. After discussing with Dr. Saab and Dr. Umana patient was started on high-dose prednisone therapy. He was advised to stop Lexapro and allopurinol as a precaution since drug-induced Florez-Zohaib syndrome is within the di fferential. He was stable for dismissal home. Departure Impression Primary Impression: Skin rash Additional Impression: Febrile illness Disposition: HOME, SELF-CARE Condition: Stable Departure-Patient Inst. Decision time for Depature: 17:56 Referrals: FABBY CRANDALL MD (PCP/Family) Primary Care Physician Patient Instructions: Erythema Nodosum, Florez-Zohaib Syndrome (DC) Add. Discharge Instructions: Eat when you get home to buffer your stomach with the prednisone steroid use. The exact cause of your rash is still on known. Drug reaction such as Florez- Zohaib syndrome is a possibility. For this reason stop allopurinol and Lexapro. Continue doxycycline. Start your prednisone prescription tomorrow morning after breakfast. Follow-up with Dr. Crandall's office tomorrow morning to hopefully obtain biopsy results. Continue to home isolate until results of your COVID-19 testing are known. Household members should also home isolate. Call or return to the ER if you have worsening symptoms in the meantime. Tylenol and/or ibuprofen may be used for pain or fever. All discharge instructions reviewed with patient and/or family. Voiced understanding. Scripts Prednisone (Prednisone) 20 Mg Tab 60 MG PO DAILY, #9 TAB 0 Refills Prov: JOSE ALFREDO JACKSON MD 06/10/20 Copy Copies To 1: [facility]MANA Copies To 2: FABBY CRANDALL MD, JOSHUA T MD Jun 10, 2020 18:00
[2020-06-10 18:01] VITALS: BP 124/90
== END 2020-06-10 18:05 | disposition home or self-care (01) ==
LOC: EDUNIT# 16:10 → ER 16:13
DX: R21 Rash and other nonspecific skin eruption (principal); R50.9 Fever, unspecified
CPT/HCPCS: 36415; 80053; 83605; 83615; 85025; 85610; 85652; 85730; 86141

== ENCOUNTER → 2020-07-03 | Outpatient (CLI) | payer BC ==
[~2020-07-03] MED LIST changes: +ALLO100T; +CATHETER FLUSH 10 ML SYR IV PRN; +DOXY100T2; +ESCI10TA55; +HOLD METFORMIN - RECEIVED CONTRAST 20 ML VIAL IV SCH; +HYDR-700; +IOHEXOL 350 MG/ML 100 ML (OMNIPAQUE 350) VIAL IV ONE; +NS 100 ML (IVPB) BAG IV ONE; +PRD20T PO
--- NOTE | 2020-07-03 09:10 | Diagnostic Imaging Report ---
PROCEDURE: CT abdomen with and without contrast. TECHNIQUE: Multiple contiguous axial CT images of the abdomen were obtained prior to and after intravenous administration of iodinated contrast. Auto Exposure Controls were utilized during the CT exam to meet ALARA standards for radiation dose reduction. DATE: July 03, 2020. INDICATION: 55-year-old male, history of liver lesions. COMPARISON: CT chest June 05, 2020. FINDINGS: There is very mild dependent atelectasis. The heart is not enlarged. There is no pericardial effusion. The liver is normal in size and contour. There are numerous low-attenuation lesions in the right and left lobes of the liver. One example lesion in the left lobe of the liver is on axial image 12, series 4 measuring 2.7 x 2.3 cm in size. These lesions are not hypervascular. There is no delayed enhancement of the lesions. The main, right, and left portal veins are patent. The gallbladder is unremarkable. There is no intrahepatic or extrahepatic bile duct dilation. The main pancreatic duct is not abnormally dilated. Unremarkable appearance of the pancreatic parenchyma. The spleen is normal in size. There is an accessory splenule on axial image 25. The adrenal glands are unremarkable. Unremarkable appearance of the renal parenchyma. The urinary collecting systems are not distended in their imaged portions. There is a very small fat-containing umbilical hernia. The visualized portions of the intestinal tract are not distended. There is no free intraperitoneal air. There is no drainable fluid collection. There is no free fluid in the abdomen. There is no identified abnormally enlarged lymph node in the abdomen which meets CT size criteria for adenopathy. There is no identified bone lesion concerning for bone metastasis. IMPRESSION: 1. Numerous low-attenuation lesions involving the right and left lobes of the liver. The liver does not appear to be cirrhotic. The differential diagnostic considerations would include metastatic disease to the liver, multiple abscesses, and granulomatous etiologies. Biopsy for a definitive diagnosis is needed. Recommend correlation with prior biopsy results. 2. No additional identified site of potential malignancy in the abdomen. Dictated by: Dictated on workstation # [id number]
== END ==
LOC: RAD 08:04
PROVIDERS: ATTEND Family Medicine
DX: K76.89 Other specified diseases of liver (principal); Z20.828 Contact with and (suspected) exposure to other viral communicable diseases
CPT/HCPCS: 74170

== ENCOUNTER → 2020-08-22 | Outpatient (CLI) | payer BC ==
--- NOTE | 2020-08-22 12:19 | Diagnostic Imaging Report ---
PROCEDURE: CT abdomen with and without contrast. TECHNIQUE: Multiple contiguous axial CT images of the abdomen were obtained prior to and after intravenous administration of iodinated contrast. Auto Exposure Controls were utilized during the CT exam to meet ALARA standards for radiation dose reduction. DATE: August 22, 2020. INDICATION: 55-year-old male, hepatomegaly. Multiple liver lesions. COMPARISON: CT abdomen without and with intravenous contrast July 03, 2020. FINDINGS: There are numerous low-attenuation lesions in the right and left lobes of the liver. One example lesion in the liver on axial image 16 currently measures 2.6 x 2.3 cm in size and is unchanged since the comparison exam of July 03, 2020. An additional example lesion in the posterior aspect of the right lobe of the liver on axial image 31 currently measures 3.1 x 2.9 cm in size which is unchanged since the comparison exam. The numerous additional liver lesions appear largely similar as well since July 03, 2020. The outer liver contours are not grossly nodular. The main, right, and left portal veins are patent. The gallbladder is unremarkable. There is no intrahepatic or extrahepatic bile duct dilation. The main pancreatic duct is not abnormally dilated. Unremarkable appearance of the pancreatic parenchyma. The spleen is normal in size. There is a small accessory splenule. The adrenal glands are unremarkable. Unremarkable appearance of the renal parenchyma. The urinary collecting systems are not distended in their visualized segments. The intestinal tract is not distended in its visualized segments. There is no identified abnormally enlarged lymph node in the abdomen which meets CT size criteria for adenopathy. There is no identified acute bony abnormality. IMPRESSION: Numerous low-attenuation lesions in the liver which are relatively unchanged in size since July 03, 2020. Differential diagnostic considerations are unchanged and include metastatic disease to the liver, granulomatous etiology, and potentially multiple abscesses. A definitive diagnosis should be promptly sought if not already obtained. Dictated by: Dictated on workstation # [id number]
== END ==
LOC: RAD 09:22
PROVIDERS: ATTEND Family Medicine
DX: R16.0 Hepatomegaly, not elsewhere classified (principal); K76.9 Liver disease, unspecified
CPT/HCPCS: 74170

== ENCOUNTER → 2021-07-22 | Outpatient (CLI) | payer BC ==
[~2021-07-22] MED LIST changes: -CATHETER FLUSH 10 ML SYR IV PRN; +ESCI-2; -ESCI10TA55; -HOLD METFORMIN - RECEIVED CONTRAST 20 ML VIAL IV SCH; -IOHEXOL 350 MG/ML 100 ML (OMNIPAQUE 350) VIAL IV ONE; -NS 100 ML (IVPB) BAG IV ONE
--- NOTE | 2021-07-22 13:28 | Diagnostic Imaging Report ---
INDICATION: Hip and back pain FINDINGS: There is some sclerosis and mild lumbar volume loss of the right femoral head. Underlying osteonecrosis cannot be excluded. There is no fracture. There is no dislocation. Soft tissues are unremarkable. IMPRESSION: Sclerosis and slight volume loss in the humeral head suspect for underlying osteonecrosis. Recommend clinical correlation and if warranted follow up with MRI. Dictated by: Dictated on workstation # [id number]
--- NOTE | 2021-07-22 13:29 | Diagnostic Imaging Report ---
INDICATION: Hip and back pain. FINDINGS: The sacroiliac joints are unremarkable. There are no lytic or sclerotic areas. There is degenerative disc disease at L5-S1. There is no fracture or dislocation. There appears to be osteonecrosis in the right femoral head. 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 Degenerative disc disease at L5-S1. Unremarkable SI joints. Dictated by: Dictated on workstation # [id number]
--- NOTE | 2021-07-22 13:29 | Diagnostic Imaging Report ---
INDICATION: Hip and back pain. FINDINGS: The alignment of lumbar spine is normal. There are some degenerative disc disease at L5-S1. Vertebral body heights well-maintained. There is no spondylolysis or spondylolisthesis. No fractures are identified. IMPRESSION: Moderate degenerative disease at L5-S1 otherwise unremarkable. Dictated by: Dictated on workstation # [id number]
== END ==
LOC: RAD 10:40
PROVIDERS: ATTEND Family Medicine
DX: M87.851 Other osteonecrosis, right femur (principal); M51.37 Other intervertebral disc degeneration, lumbosacral region
CPT/HCPCS: 72100; 72202; 73502